=== PATIENT | male | born 1960 | race Caucasian/White ===

== ENCOUNTER 2023-04-11 14:03 | Inpatient (IN) | payer OTHER ==
--- NOTE | 2023-04-11 14:25 | ED ---
General Adult HPI - General Source: patient, RN notes reviewed Mode of arrival: ambulatory Limitations: no limitations <Jus Rajput - Last Filed: 04/11/23 14:24> - History of Present Illness -: days(s) Radiation: non-radiation Severity scale (1-10): 3 Consistency: constant Improves with: none Associated Symptoms: chest pain, loss of appetite, shortness of breath Treatments Prior to Arrival: none <Daron Cope - Last Filed: 04/15/23 18:38> - General Chief complaint: Shortness of Breath Stated complaint: chest pains sob Time Seen by Provider: 04/11/23 14:24 - History of Present Illness Initial comments: 62-year-old male presents emergency Department chief complaint of shortness breath, palpitations, chest discomfort. Patient states he has a history of A. fib he states he is supposed to be. On blood thinners but states he has not been taking them. He is also on metoprolol. Patient states he has lower chest, epigastric discomfort. (Jus Rajput) This is a 62-year-old male to the emergency department for evaluation. Patient Dese for evaluation regards to shortness of breath severe shortness of breath can catch his breath has not any of his medication exposed to be taking patient has occasional chest pain but deathly shortness breath with exertion (Daron Cope) - Related Data Home Medications Medication Instructions Recorded Confirmed Loperamide [Imodium] 2 mg PO BID PRN 04/11/23 04/11/23 Previous Rx's Medication Instructions Recorded Albuterol Inhaler [Ventolin Hfa 1 puff INHALATION QID PRN #8 gm 04/15/23 Inhaler] Apixaban [Eliquis] 5 mg PO BID #60 tab 04/15/23 Atorvastatin [Lipitor] 40 mg PO DAILY #30 tab 04/15/23 Bumetanide [BUMEX] 1 mg PO BID@0900,1600 #60 tab 04/15/23 Empagliflozin [Jardiance] 10 mg PO DAILY #30 tab 04/15/23 Metoprolol Tartrate [Lopressor] 50 mg PO BID #60 tab 04/15/23 Pantoprazole [Protonix] 40 mg PO AC-BRKFST #30 tab 04/15/23 Sacubitril/Valsartan [Entresto 24 1 each PO BID #60 tab 04/15/23 mg-26 mg Tablet] Spironolactone [Aldactone] 25 mg PO DAILY #30 tab 04/15/23 Allergies Allergy/AdvReac Type Severity Reaction Status Date / Time No Known Allergies Allergy Verified 04/11/23 17:50 Review of Systems ROS Other: All systems not noted in ROS Statement are negative. <Jus Rajput - Last Filed: 04/11/23 14:24> ROS Other: All systems not noted in ROS Statement are negative. <Daron Cope - Last Filed: 04/15/23 18:38> ROS Statement: Those systems with pertinent positive or pertinent negative responses have been documented in the HPI. Past Medical History Past Medical History: Atrial Fibrillation, Heart Failure Additional Past Medical History / Comment(s): high cholestrol History of Any Multi-Drug Resistant Organisms: None Reported Past Surgical History: Appendectomy, Hernia Repair Smoking Status: Never smoker Past Alcohol Use History: None Reported Past Drug Use History: Marijuana <Jus Rajput - Last Filed: 04/11/23 14:24> General Exam Limitations: no limitations <Jus Rajput - Last Filed: 04/11/23 14:24> General appearance: alert, in no apparent distress Head exam: Present: atraumatic, normocephalic, normal inspection Eye exam: Present: normal appearance, PERRL, EOMI. Absent: scleral icterus, conjunctival injection, periorbital swelling ENT exam: Present: normal exam, mucous membranes moist Neck exam: Present: normal inspection. Absent: tenderness, meningismus, lymphadenopathy Respiratory exam: Present: normal lung sounds bilaterally. Absent: respiratory distress, wheezes, rales, rhonchi, stridor Cardiovascular Exam: Present: tachycardia, irregular rhythm, normal heart sounds. Absent: systolic murmur, diastolic murmur, rubs, gallop, clicks GI/Abdominal exam: Present: soft, normal bowel sounds. Absent: distended, tenderness, guarding, rebound, rigid Extremities exam: Present: normal inspection, full ROM, normal capillary refill. Absent: tenderness, pedal edema, joint swelling, calf tenderness Back exam: Present: normal inspection Neurological exam: Present: alert, oriented X3, CN II-XII intact Psychiatric exam: Present: normal affect, normal mood Skin exam: Present: warm, dry, intact, normal color. Absent: rash <Daron Cope - Last Filed: 04/15/23 18:38> - General Exam Comments Initial Comments: Visual Physical Exam Vital signs reviewed General: Well-appearing, nontoxic, no acute distress. Head: Normocephalic, atraumatic Eyes: PERRLA, EOMI ENT: Airway patent Chest: Nonlabored breathing Skin: No visual rash, normal skin tone Neuro: Alert and oriented 3 Musculoskeletal: No gross abnormalities (Jus Rajput) Course <Daron Cope - Last Filed: 04/15/23 18:38> Vital Signs 04/11/23 04/11/23 04/11/23 14:07 16:39 18:27 Temperature 97.6 F 98.2 F Pulse Rate 65 62 63 Respiratory 22 28 H 27 H Rate Blood Pressure 138/114 141/83 142/82 O2 Sat by Pulse 96 95 94 L Oximetry 04/11/23 04/11/23 04/11/23 19:01 20:00 21:32 Temperature 98.1 F Pulse Rate 118 H 81 81 Respiratory 25 H 18 18 Rate Blood Pressure 120/92 129/88 118/93 O2 Sat by Pulse 97 93 L 96 Oximetry 04/12/23 04/12/23 04/12/23 00:00 04:00 07:00 Temperature Pulse Rate 77 57 L 83 Respiratory 15 17 18 Rate Blood Pressure 125/87 133/88 127/81 O2 Sat by Pulse 94 L 94 L 96 Oximetry 04/12/23 04/12/23 04/12/23 08:00 09:00 10:00 Temperature 97.7 F Pulse Rate 80 87 78 Respiratory 19 18 18 Rate Blood Pressure 146/106 133/100 131/99 O2 Sat by Pulse 96 93 L 94 L Oximetry 04/12/23 04/12/23 04/12/23 10:53 12:49 14:00 Temperature 98.0 F Pulse Rate 93 77 Respiratory 20 20 Rate Blood Pressure 113/87 116/99 O2 Sat by Pulse 93 L 97 97 Oximetry - Reevaluation(s) Reevaluation #1: 04/11/23 19:43 Medical record is reviewed (Daron Cope) Reevaluation #2: 04/11/23 19:44 Patient still with shortness of breath (Daron Cope) Reevaluation #3: 04/11/23 19:44 Patient for results questions answered (Daron Cope) Reevaluation #4: 04/11/23 19:44 Was pt. sent in by a medical professional or institution ([facility] Pressley, [facility], urgent care, hospital, or [facility]...) When possible be specific @ -no Did you speak to anyone other than the patient for history (EMS, parent, family, police, friend...)? What history was obtained from this source @ -no Did you review nursing and triage notes (agree or disagree)? Why? @ -agree Are old charts reviewed (outside hosp., previous admission, EMS record, old EKG, old radiological studies, urgent care reports/EKG's, [facility] records)? Report findings @ -yes Differential Diagnosis (chest pain, altered mental status, abdominal pain women, abdominal pain men, vaginal bleeding, weakness, fever, dyspnea, syncope, headache, dizziness, GI bleed, back pain, seizure, CVA, palpatations, mental health, musculoskeletal)? @ -prior EKG interpreted by me (3pts min.). @ -yes X-rays interpreted by me (1pt min.). @ -yes CT interpreted by me (1pt min.). @ -no U/S interpreted by me (1pt. min.). @ -no What testing was considered but not performed or refused? (CT, X-rays, U/S, labs)? Why? @ -none What meds were considered but not given or refused? Why? @ -none Did you discuss the management of the patient with other professionals (professionals i.e. ISHA[facility] Pressley, [facility], lab, RT, psych nurse, elementary school social worker, fence manufacture supervisor, teacher, transit police officer, manager case)? Give summary @ -no Was smoking cessation discussed for >3mins.? @ -no Was critical care preformed (if so, how long)? @ -no Were there social determinants of health that impacted care today? How? (Homelessness, low income, unemployed, alcoholism, drug addiction, transportation, low edu. Level, literacy, decrease access to med. care, fci, rehab)? @ -none Was there de-escalation of care discussed even if they declined (Discuss DNR or withdrawal of care, Hospice)? DNR status @ -no What co-morbidities impacted this encounter? (DM, HTN, Smoking, COPD, CAD, Cancer, CVA, ARF, Chemo, Hep., AIDS, mental health diagnosis, sleep apnea, morbid obesity)? @ -none Was patient admitted / discharged? Hospital course, mention meds given and route, prescriptions, significant lab abnormalities, going to OR and other pertinent info. @ - 62 male to the emergency department with severe shortness of breath multifactorial respiratory failure and A. fib with RVR. Patient be admitted for establishing of local primary care cardiology as well as pulmonology Admitted Undiagnosed new problem with uncertain prognosis? @ -no Drug Therapy requiring intensive monitoring for toxicity (Heparin, Nitro, Insulin, Cardizem)? @ -no Were any procedures done? @ -no Diagnosis/symptom? @ -CHF, COPD, atrial fibrillation with RVR Acute, or Chronic, or Acute on Chronic? @ -Acute Uncomplicated (without systemic symptoms) or Complicated (systemic symptoms)? @ -Complicated Side effects of treatment? @ -no Exacerbation, Progression, or Severe Exacerbation? @ -exacerbation Poses a threat to life or bodily function? How? (Chest pain, USA, IA, pneumonia, PE, COPD, DKA, ARF, appy, cholecystitis, CVA, Diverticulitis, Homicidal, Suicidal, threat to staff... and all critical care pts) @ -yes significant CHF and respiratory failure with arrhythmia (Daron Cope) Reevaluation #5: 04/11/23 19:44 Differential Dyspnea: Coronary syndrome, arrhythmia, tamponade, asthma, COPD, pulmonary embolism, pneumonia, pneumothorax, pulmonary effusion, anaphylaxis, diabetic ketoacidosis, flailed chest, pulmonary contusion, diaphragmatic rupture, anemia, neuromuscular, this is not meant to be an all-inclusive list. (Daron Cope) - Consultations Consultation #1: Spoke with SALLY to admit this patient (Daron Cope) EKG Findings - EKG Comments: EKG Findings:: EKG is A. fib with RVR 136 QRS 150 QTC 419 - EKG Results: EKG: interpreted by ERMD <Daron Cope - Last Filed: 04/15/23 18:38> Medical Decision Making <Jus Rajput - Last Filed: 04/11/23 14:24> - Lab Data Result diagrams: 04/12/23 09:09 04/14/23 07:04 - EKG Data -: EKG Interpreted by Me - Radiology Data Radiology results: report reviewed (Chest x-rays positive for CHF), image reviewed <Daron Cope - Last Filed: 04/15/23 18:38> - Medical Decision Making I completed the quick note portion of this chart signed Jus Rajput PA-C (Jus Rajput) 62 male will be admitted for severe CHF with A. fib with RVR. Patient will be admitted for breathing and supportive care. Diuresis and patient need to establish primary care physician in this area (Daron Cope) - Lab Data Lab Results 04/11/23 04/11/23 04/11/23 Range/Units 14:27 14:27 14:27 WBC 7.8 (3.8-10.6) k/uL RBC 4.54 (4.30-5.90) m/uL Hgb 13.2 (13.0-17.5) gm/dL Hct 39.1 (39.0-53.0) % MCV 86.3 (80.0-100.0) fL MCH 29.0 (25.0-35.0) pg MCHC 33.7 (31.0-37.0) g/dL RDW 17.7 H (11.5-15.5) % Plt Count 271 (150-450) k/uL MPV 8.9 Neutrophils % 70 % Lymphocytes % 20 % Monocytes % 8 % Eosinophils % 1 % Basophils % 0 % Neutrophils # 5.4 (1.3-7.7) k/uL Lymphocytes # 1.6 (1.0-4.8) k/uL Monocytes # 0.6 (0-1.0) k/uL Eosinophils # 0.1 (0-0.7) k/uL Basophils # 0.0 (0-0.2) k/uL Anisocytosis Slight PT 13.3 H (10.0-12.5) sec INR 1.3 H (<1.2) APTT 23.3 (22.0-30.0) sec Sodium 140 (137-145) mmol/L Potassium 3.7 (3.5-5.1) mmol/L Chloride 107 (98-107) mmol/L Carbon Dioxide 18 L (22-30) mmol/L Anion Gap 15 mmol/L BUN 24 H (9-20) mg/dL Creatinine 0.91 (0.66-1.25) mg/dL Est GFR (CKD-EPI)AfAm >90 (>60 ml/min/1.73 sqM) Est GFR (CKD-EPI)NonAf 89 (>60 ml/min/1.73 sqM) Glucose 123 H (74-99) mg/dL Plasma Lactic Acid Robinson (0.7-2.0) mmol/L Calcium 9.2 (8.4-10.2) mg/dL Total Bilirubin 1.7 H (0.2-1.3) mg/dL AST 31 (17-59) U/L ALT 20 (4-49) U/L Alkaline Phosphatase 82 (38-126) U/L Troponin I (0.000-0.034) ng/mL NT-Pro-B Natriuret Pep 9650 pg/mL Total Protein 7.3 (6.3-8.2) g/dL Albumin 4.2 (3.5-5.0) g/dL 04/11/23 04/11/23 Range/Units 14:27 14:27 WBC (3.8-10.6) k/uL RBC (4.30-5.90) m/uL Hgb (13.0-17.5) gm/dL Hct (39.0-53.0) % MCV (80.0-100.0) fL MCH (25.0-35.0) pg MCHC (31.0-37.0) g/dL RDW (11.5-15.5) % Plt Count (150-450) k/uL MPV Neutrophils % % Lymphocytes % % Monocytes % % Eosinophils % % Basophils % % Neutrophils # (1.3-7.7) k/uL Lymphocytes # (1.0-4.8) k/uL Monocytes # (0-1.0) k/uL Eosinophils # (0-0.7) k/uL Basophils # (0-0.2) k/uL Anisocytosis PT (10.0-12.5) sec INR (<1.2) APTT (22.0-30.0) sec Sodium (137-145) mmol/L Potassium (3.5-5.1) mmol/L Chloride (98-107) mmol/L Carbon Dioxide (22-30) mmol/L Anion Gap mmol/L BUN (9-20) mg/dL Creatinine (0.66-1.25) mg/dL Est GFR (CKD-EPI)AfAm (>60 ml/min/1.73 sqM) Est GFR (CKD-EPI)NonAf (>60 ml/min/1.73 sqM) Glucose (74-99) mg/dL Plasma Lactic Acid Robinson 1.7 (0.7-2.0) mmol/L Calcium (8.4-10.2) mg/dL Total Bilirubin (0.2-1.3) mg/dL AST (17-59) U/L ALT (4-49) U/L Alkaline Phosphatase (38-126) U/L Troponin I 0.019 (0.000-0.034) ng/mL NT-Pro-B Natriuret Pep pg/mL Total Protein (6.3-8.2) g/dL Albumin (3.5-5.0) g/dL Disposition <Jus Rajput - Last Filed: 04/11/23 14:24> Is patient prescribed a controlled substance at d/c from ED?: No Time of Disposition: 18:40 <Daron Cope - Last Filed: 04/15/23 18:38> Clinical Impression: Congestive heart failure, Acute pulmonary edema, Atrial fibrillation with rapid ventricular response Disposition: ADMITTED IP TO THIS HOSP Condition: Fair
[2023-04-11 14:50] LABS: Anisocytosis Slight; Basophils % (A) 0 %; Eosinophils # (A) 0.1 k/uL (0-0.7); Eosinophils % (A) 1 %; HCT 39.1 % (39.0-53.0); HGB 13.2 gm/dL (13.0-17.5); Lymphocytes # (A) 1.6 k/uL (1.0-4.8); Lymphocytes % (A) 20 %; MCHC 33.7 g/dL (31.0-37.0); MCV 86.3 fL (80.0-100.0); Mean Platelet Volume 8.9; Monocytes # (A) 0.6 k/uL (0-1.0); Monocytes % (A) 8 %; Neutrophils # (A) 5.4 k/uL (1.3-7.7); Neutrophils % (A) 70 %; Platelet Count 271 k/uL (150-450); RBC 4.54 m/uL (4.30-5.90); RDW 17.7 % (11.5-15.5); WBC 7.8 k/uL (3.8-10.6)
[2023-04-11 14:56] LABS: ALT 20 U/L (4-49); AST 31 U/L (17-59); African American GFR (CKD) >90 (>60 ml/min/1.73 sqM); Albumin 4.2 g/dL (3.5-5.0); Alkaline Phosphatase 82 U/L (38-126); Anion Gap 15 mmol/L; Blood Urea Nitrogen 24 mg/dL (9-20); Calcium 9.2 mg/dL (8.4-10.2); Carbon Dioxide 18 mmol/L (22-30); Chloride 107 mmol/L (98-107); Glucose 123 mg/dL (74-99); Non-African American GFR(CKD) 89 (>60 ml/min/1.73 sqM); Potassium 3.7 mmol/L (3.5-5.1); Sodium 140 mmol/L (137-145); Total Bilirubin 1.7 mg/dL (0.2-1.3); Total Protein 7.3 g/dL (6.3-8.2)
--- NOTE | 2023-04-11 14:56 | XR ---
EXAMINATION TYPE: XR chest 2V DATE OF EXAM: 04/11/2023 COMPARISON: NONE TECHNIQUE: PA and lateral views submitted. HISTORY: Difficulty breathing FINDINGS: Bilateral consolidation and small effusion. Diffuse interstitial pattern. Biapical pleural thickening with no pneumothorax. The heart is normal. Hypertrophic and degenerative changes in the spine. Diffu se idiopathic skeletal hyperostosis in the differential diagnosis. Arthropathy of the shoulders. IMPRESSION: 1. Bilateral infiltrate and pleural effusion correlate for CHF otherwise consider pneumonia.
[2023-04-11 15:04] LABS: NT-Pro-B-Type Natriuretic Pept 9650 pg/mL
[2023-04-11 15:11] LABS: INR 1.3 (<1.2); Partial Thromboplastin Time 23.3 sec (22.0-30.0); Prothrombin Time 13.3 sec (10.0-12.5)
[2023-04-11] MEDS ORDERED: MORPHINE SULFATE 4 MG/ML SYRINGE IV PRN (18:36)
[2023-04-11] MEDS ORDERED: NALOXONE 0.4 MG/ML 1 ML VIAL IV PRN (18:36)
[2023-04-11] MEDS ORDERED: ONDANSETRON 4 MG/2 ML VIAL IVP PRN (18:36)
[2023-04-11] MEDS ORDERED: FUROSEMIDE 10 MG/ML 4 ML VIAL IV STA (18:36)
[2023-04-11] MEDS ORDERED: DILTIAZEM DRIP BOLUS FROM BAG 1 MG SOLN IV ONE (18:40)
[2023-04-11] MEDS ORDERED: METOPROLOL TARTRATE 5 MG/5 ML VIAL IVP STA (18:40)
[2023-04-11] MEDS ORDERED: DILTIAZEM 125 MG in SODIUM CHLORIDE 0.9% 100 ML IV SCH (18:45)
[2023-04-12] MEDS ORDERED: METOPROLOL TARTRATE 25 MG TAB PO SCH (09:30)
[2023-04-12] MEDS: FUROSEMIDE 10 MG/ML 4 ML VIAL IV SCH ×2 (09:40→20:05)
[2023-04-12] MEDS: APIXABAN 5 MG TAB PO SCH ×2 (09:41→20:05)
[2023-04-12] MEDS: ATORVASTATIN 40 MG TAB PO SCH (09:41)
[2023-04-12] MEDS: LOSARTAN 25 MG TAB PO SCH (09:48)
[2023-04-12 09:50] LABS: Anisocytosis Slight; Basophils % (A) 0 %; Eosinophils # (A) 0.1 k/uL (0-0.7); Eosinophils % (A) 2 %; HCT 38.4 % (39.0-53.0); HGB 12.2 gm/dL (13.0-17.5); Hypochromasia Slight; Lymphocytes # (A) 1.1 k/uL (1.0-4.8); Lymphocytes % (A) 18 %; MCH 28.2 pg (25.0-35.0); MCHC 31.9 g/dL (31.0-37.0); MCV 88.4 fL (80.0-100.0); Mean Platelet Volume 8.3; Monocytes # (A) 0.4 k/uL (0-1.0); Monocytes % (A) 7 %; Neutrophils # (A) 4.4 k/uL (1.3-7.7); Neutrophils % (A) 73 %; Platelet Count 227 k/uL (150-450); RBC 4.35 m/uL (4.30-5.90); RDW 17.5 % (11.5-15.5); WBC 6.1 k/uL (3.8-10.6)
[2023-04-12 10:04] LABS: ALT 17 U/L (4-49); AST 22 U/L (17-59); African American GFR (CKD) >90 (>60 ml/min/1.73 sqM); Albumin 3.9 g/dL (3.5-5.0); Alkaline Phosphatase 77 U/L (38-126); Anion Gap 11 mmol/L; Blood Urea Nitrogen 17 mg/dL (9-20); Calcium 8.7 mg/dL (8.4-10.2); Carbon Dioxide 26 mmol/L (22-30); Chloride 102 mmol/L (98-107); Glucose 106 mg/dL (74-99); Non-African American GFR(CKD) >90 (>60 ml/min/1.73 sqM); Phosphorus 3.9 mg/dL (2.5-4.5); Potassium 3.3 mmol/L (3.5-5.1); Sodium 139 mmol/L (137-145); Total Bilirubin 1.6 mg/dL (0.2-1.3); Total Protein 6.9 g/dL (6.3-8.2)
[2023-04-12 10:24] LABS: Digoxin <0.4 ng/mL
[2023-04-12] MEDS ORDERED: POTASSIUM CHLORIDE ER 20 MEQ TAB.ER PO STA ×2 (12:46→22:43)
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
--- NOTE | 2023-04-12 19:10 | P.CRDCN ---
History of Present Illness Consult date: 04/12/23 History of present illness: HISTORY OF PRESENTING ILLNESS 62-year-old history of atrial fibrillation on anticoagulation, mild nonobstructive CAD, nonischemic cardiomyopathy with EF of 15-20% in December 2022 at [facility]. Patient reports that he has been out of his medication for last 1-2 weeks and he has not been able to get them filled. He presented to the hospital because of worsening shortness of breath with exertion and orthopnea. He is also complaining generalized weakness and fatigue. On admission his ECG showed atrial fibrillation with left bundle-branch block. He was in rapid ventricular response at the time of admission but at the time of my evaluation he was rate controlled. Lab shows hemoglobin 12.8, BUN 17, creatinine 0.9, BNP 9000, troponin was not elevated. REVIEW OF SYSTEMS 14 point review of system is negative except what is mentioned above in HPI. PHYSICAL EXAMINATION Vital signs reviewed. Head: Normocephalic. Eyes: Sclerae nonicteric. Neck: Brisk carotid upstroke, jugular venous distention. Lungs: Clear to auscultation. Heart: Irregularly irregular, probably murmur audible. Abdomen: Soft nontender, positive bowel sounds no organomegaly. Extremities: 2+ pitting edema in bilateral lower extremity Neuro: Alert, oritented, no focal deficits ASSESSMENT Acute hypoxic respiratory failure Acute systolic heart failure exacerbation Atrial fibrillation with RVR on admission. Currently rate controlled Nonischemic cardiomyopathy with EF 15-20% from Dec 2022 [facility] Medical non compliance Hypertension Dyslipidemia PLAN Resume Eliquis 5 mg twice a day, aspirin 81 mg, atorvastatin 40 mg, Lasix 40 mg IV twice a day, losartan 25 mg, metoprolol 50 minutes twice a day. Start spironolactone 25 mg and Farxiga 5 mg daily Past Medical History Past Medical History: Atrial Fibrillation, Heart Failure, Hyperlipidemia Additional Past Medical History / Comment(s): high cholestrol History of Any Multi-Drug Resistant Organisms: None Reported Past Surgical History: Appendectomy, Hernia Repair Past Anesthesia/Blood Transfusion Reactions: No Reported Reaction Past Psychological History: Depression Additional Psychological History / Comment(s): Patient is homeless. Smoking Status: Never smoker Past Alcohol Use History: None Reported Past Drug Use History: Marijuana Medications and Allergies Home Medications Medication Instructions Recorded Confirmed Type Aspirin [Children's Aspirin] 81 mg PO DAILY 04/11/23 04/11/23 History Atorvastatin [Lipitor] 40 mg PO DAILY 04/11/23 04/11/23 History Digoxin [Lanoxin] 125 mcg PO DAILY 04/11/23 04/11/23 History Empagliflozin [Jardiance] 10 mg PO DAILY 04/11/23 04/11/23 History Furosemide [Lasix] 60 mg PO BID 04/11/23 04/11/23 History Loperamide [Imodium] 2 mg PO BID PRN 04/11/23 04/11/23 History Metoprolol Succinate (ER) [Toprol 100 mg PO BID 04/11/23 04/11/23 History Xl] Rivaroxaban [Xarelto] 20 mg PO DAILY 04/11/23 04/11/23 History Spironolactone [Aldactone] 25 mg PO DAILY 04/11/23 04/11/23 History Allergies Allergy/AdvReac Type Severity Reaction Status Date / Time No Known Allergies Allergy Verified 04/11/23 17:50 Physical Exam Vitals: Vital Signs Temp Pulse Pulse Resp BP BP Pulse Ox 04/12/23 15:59 97.3 F L 62 17 129/77 95 04/12/23 15:22 97.8 F 72 17 118/88 97 04/12/23 14:00 97 04/12/23 12:49 98.0 F 77 20 116/99 97 04/12/23 10:53 93 20 113/87 93 L 04/12/23 10:00 78 18 131/99 94 L 04/12/23 09:00 87 18 133/100 93 L 04/12/23 08:00 97.7 F 80 19 146/106 96 04/12/23 07:00 83 18 127/81 96 04/12/23 04:00 57 L 17 133/88 94 L 04/12/23 00:00 77 15 125/87 94 L 04/11/23 21:32 98.1 F 81 18 118/93 96 04/11/23 20:00 81 18 129/88 93 L Intake and Output 04/12/23 04/12/23 04/12/23 06:59 14:59 22:59 Intake Total 110 Output Total 1700 Balance -1700 110 Intake: Oral 110 Output: Urine 1700 Other: Weight 113.398 kg Results 04/12/23 09:09 04/12/23 09:09 Cardiac Enzymes 04/11/23 04/12/23 04/12/23 Range/Units 19:51 00:13 09:09 AST 22 (17-59) U/L Troponin I 0.025 0.015 (0.000-0.034) ng/mL CBC 04/12/23 Range/Units 09:09 WBC 6.1 (3.8-10.6) k/uL RBC 4.35 (4.30-5.90) m/uL Hgb 12.2 L (13.0-17.5) gm/dL Hct 38.4 L (39.0-53.0) % Plt Count 227 (150-450) k/uL Comprehensive Metabolic Panel 04/12/23 Range/Units 09:09 Sodium 139 (137-145) mmol/L Potassium 3.3 L (3.5-5.1) mmol/L Chloride 102 (98-107) mmol/L Carbon Dioxide 26 (22-30) mmol/L BUN 17 (9-20) mg/dL Creatinine 0.87 (0.66-1.25) mg/dL Glucose 106 H (74-99) mg/dL Calcium 8.7 (8.4-10.2) mg/dL AST 22 (17-59) U/L ALT 17 (4-49) U/L Alkaline Phosphatase 77 (38-126) U/L Total Protein 6.9 (6.3-8.2) g/dL Albumin 3.9 (3.5-5.0) g/dL Current Medications Generic Name Dose Route Start Last Admin Trade Name Jbq PRN Reason Stop Dose Admin Apixaban 5 mg 04/12/23 09:30 04/12/23 09:41 Apixaban 5 Mg Tab PO 5 mg BID CATE Administration Protocol Aspirin 81 mg 04/13/23 09:00 Aspirin 81 Mg PO DAILY [facility] Atorvastatin Calcium 40 mg 04/12/23 09:30 04/12/23 09:41 Atorvastatin 40 Mg Tab PO 40 mg DAILY CATE Administration Dapagliflozin 5 mg 04/13/23 09:00 Dapagliflozin Propanediol 5 Mg Tablet PO DAILY [facility] Furosemide 40 mg 04/12/23 09:30 04/12/23 09:40 Furosemide 10 Mg/Ml 4 Ml Vial IV 40 mg Q12HR CATE Administration Losartan Potassium 25 mg 04/12/23 09:30 04/12/23 09:48 Losartan 25 Mg Tab PO 25 mg DAILY CATE Administration Metoprolol Tartrate 50 mg 04/12/23 21:00 Metoprolol Tartrate 25 Mg Tab PO BID CATE Naloxone HCl 0.2 mg 04/11/23 18:36 Naloxone 0.4 Mg/Ml 1 Ml Vial IV Q2M PRN Opioid Reversal Ondansetron HCl 4 mg 04/11/23 18:36 04/12/23 08:37 Ondansetron 4 Mg/2 Ml Vial IVP 4 mg Q8HR PRN Administration Nausea And Vomiting Spironolactone 25 mg 04/13/23 09:00 Spironolactone 25 Mg Tab PO DAILY CATE Intake and Output 04/12/23 04/12/23 04/12/23 06:59 14:59 22:59 Intake Total 110 Output Total 1700 Balance -1700 110 Intake: Oral 110 Output: Urine 1700 Other: Weight 113.398 kg Patient Weight 04/13/23 06:59 Weight 113.398 kg 04/12/23 09:09 04/12/23 09:09
[2023-04-12] MEDS: METOPROLOL TARTRATE 25 MG TAB PO SCH (20:05)
[2023-04-12 22:37] LABS: African American GFR (CKD) 74 (>60 ml/min/1.73 sqM); Anion Gap 10 mmol/L; Blood Urea Nitrogen 21 mg/dL (9-20); Calcium 8.2 mg/dL (8.4-10.2); Carbon Dioxide 30 mmol/L (22-30); Chloride 99 mmol/L (98-107); Glucose 82 mg/dL (74-99); Non-African American GFR(CKD) 64 (>60 ml/min/1.73 sqM); Potassium 3.2 mmol/L (3.5-5.1); Sodium 139 mmol/L (137-145)
[2023-04-12] MEDS ORDERED: Potassium Replacement Protocol 1 EACH MISC MISCELLANE PRN (22:42)
[2023-04-13] MEDS: ATORVASTATIN 40 MG TAB PO SCH (08:44)
[2023-04-13] MEDS: METOPROLOL TARTRATE 25 MG TAB PO SCH ×2 (08:44→20:11)
[2023-04-13] MEDS: SPIRONOLACTONE 25 MG TAB PO SCH (08:44)
[2023-04-13] MEDS: DAPAGLIFLOZIN PROPANEDIOL 5 MG TABLET PO SCH (08:44)
[2023-04-13] MEDS: APIXABAN 5 MG TAB PO SCH ×2 (08:44→20:11)
[2023-04-13] MEDS: LOSARTAN 25 MG TAB PO SCH (08:44)
[2023-04-13] MEDS: FUROSEMIDE 10 MG/ML 4 ML VIAL IV SCH ×2 (08:58→20:10)
[2023-04-13] MEDS ORDERED: ASPIRIN 81 MG PO SCH (09:00)
[2023-04-13] MEDS ORDERED: ATORVASTATIN 40 MG TAB PO SCH (09:00)
[2023-04-13] MEDS ORDERED: DIGOXIN 125 MCG TAB PO SCH (09:00)
[2023-04-13 10:03] LABS: African American GFR (CKD) 90 (>60 ml/min/1.73 sqM); Anion Gap 12 mmol/L; Blood Urea Nitrogen 20 mg/dL (9-20); Calcium 8.8 mg/dL (8.4-10.2); Carbon Dioxide 29 mmol/L (22-30); Chloride 101 mmol/L (98-107); Glucose 113 mg/dL (74-99); Non-African American GFR(CKD) 78 (>60 ml/min/1.73 sqM); Potassium 3.7 mmol/L (3.5-5.1); Sodium 142 mmol/L (137-145)
--- NOTE | 2023-04-13 10:10 | CA ---
Transthoracic Echo Report Name: Teddy Ku Age: 62 Gender: M : 1960 Exam Date: 04/12/2023 11:16 Exam Location: [facility] Ht (in): 75 Wt (lb): 250 Ordering Physician: Magdy Ramirez MD ([id number]) Attending/Referring Phys: Brush Or Broom Cutter Suyapa Leal [facility] Procedure CPT: Indications: CHF systolic Cardiac Hx: Technical Quality: Technically difficult study Contrast 1: Definity Total Dose (mL): 5 Contrast 2: Total Dose (mL): MEASUREMENTS (Male / Female) Normal Values 2D ECHO LV Diastolic Diameter PLAX 5.6 cm 4.2 - 5.9 / 3.9 - 5.3 cm LV Systolic Diameter PLAX 4.6 cm IVS Diastolic Thickness 1.1 cm 0.6 - 1.0 / 0.6 - 0.9 cm LVPW Diastolic Thickness 1.3 cm 0.6 - 1.0 / 0.6 - 0.9 cm LV Relative Wall Thickness 0.4 LV Diastolic Volume MOD BP 137.0 cm??? 67 - 155 / 56 - 104 cm??? LV Systolic Volume MOD BP 96.6 cm??? 22 - 58 / 19 - 49 cm??? LV Ejection Fraction MOD BP 29.5 % >= 55 % LV Cardiac Index MOD BP 1059.2 cm???/min???m??? LV Diastolic Volume MOD 4C 119.3 cm??? LV Systolic Volume MOD 4C 70.7 cm??? LV Ejection Fraction MOD 4C 40.7 % LV Cardiac Index MOD 4C 1274.6 cm???/min???m??? LV Diastolic Length 4C 9.7 cm LV Systolic Length 4C 8.0 cm LV Diastolic Volume MOD 2C 152.6 cm??? LV Systolic Volume MOD 2C 117.8 cm??? LV Ejection Fraction MOD 2C 22.8 % LV Cardiac Index MOD 2C 913.6 cm???/min???m??? LV Diastolic Length 2C 9.4 cm LV Systolic Length 2C 9.0 cm Ascending Aorta Diameter 3.8 cm M-MODE Aortic Root Diameter MM 3.5 cm LA Systolic Diameter MM 5.6 cm LA Ao Ratio MM 1.6 AV Cusp Separation MM 2.5 cm DOPPLER AV Peak Velocity 110.0 cm/s AV Peak Gradient 4.8 mmHg AV Mean Velocity 73.8 cm/s AV Mean Gradient 2.5 mmHg AV Velocity Time Integral 16.7 cm LVOT Peak Velocity 86.6 cm/s LVOT Peak Gradient 3.0 mmHg LVOT Velocity Time Integral 16.7 cm Mitral E Point Velocity 63.3 cm/s MV Deceleration Time 147.9 ms LV E' Lateral Velocity 6.3 cm/s Mitral E to LV E' Lateral Ratio 10.0 TR Peak Velocity 240.5 cm/s TR Peak Gradient 23.1 mmHg Right Atrial Pressure 15.0 mmHg Pulmonary Artery Systolic Pressu 38.1 mmHg Right Ventricular Systolic Press 38.1 mmHg FINDINGS Left Ventricle Mildly increased left ventricular wall thickness. Left ventricular cavity size at the upper limits of normal. Severely increased left ventricular systolic volume. Severely decreased left ventricular ejection fraction. Left ventricular ejection fraction is estimated at 25-30%. Right Ventricle Severe right ventricular dilatation. Mild pulmonary hypertension. Right Atrium Severe right atrial dilatation. Left Atrium Severe left atrial dilatation. Mitral Valve Mitral valve thickened. Trace mitral regurgitation. Aortic Valve Trileaflet aortic valve. Aortic valve sclerosis. Mild aortic regurgitation. Tricuspid Valve Structurally normal tricuspid valve. Mild tricuspid regurgitation. Pulmonic Valve Pulmonic valve not well visualized. Pericardium Minimal pericardial effusion (normal variant). Aorta Aorta at upper limits of normal. CONCLUSIONS Severe LV systolic dysfunction with an ejection fraction of 25-30% Dilated right ventricle with mild pulmonary hypertension Mild aortic and tricuspid regurgitation Previewed by: Dr. Monty Franco MD (Electronically Signed) Final Date: 13 April 2023 10:08
[2023-04-13] MEDS: POTASSIUM CHLORIDE ER 20 MEQ TAB.ER PO SCH ×2 (10:21→11:21)
--- NOTE | 2023-04-13 13:11 | P.PN ---
Subjective HISTORY OF PRESENT ILLNESS: 62-year-old history of atrial fibrillation on anticoagulation, mild nonobstructive CAD, nonischemic cardiomyopathy with EF of 15-20% in December 2022 at [facility]. Patient reports that he has been out of his medication for last 1-2 weeks and he has not been able to get them filled. He presented to the hospital because of worsening shortness of breath with exertion and orthopnea. He is also complaining generalized weakness and fatigue. On admission his ECG showed atrial fibrillation with left bundle-branch block. He was in rapid ventricular response at the time of admission but at the time of my evaluation he was rate controlled. Lab shows hemoglobin 12.8, BUN 17, creatinine 0.9, BNP 9000, troponin was not elevated. 04/13/2023 Patient examined this morning at the bedside. Patient currently denies chest pain or pressure. He does report shortness of breath. He remains on IV Lasix. Telemetry reveals atrial fibrillation with a heart rate in the 80s. Echocard iogram completed revealing severe LV systolic dysfunction with an EF of 25-30%, mild pulmonary hypertension, trace mitral regurgitation, mild aortic regurgitation and mild tricuspid regurgitation. PHYSICAL EXAM: VITAL SIGNS: Reviewed. GENERAL: Well-developed in no acute distress. NECK: Supple. No JVD or thyromegaly LUNGS: Respirations even and unlabored. Lungs with crackles at the bases HEART Irregular rate and rhythm. S1 and S2 heard. EXTREMITIES: Normal range of motion. No clubbing or cyanosis. Peripheral pulses intact. lower extremity edema noted ASSESSMENT: Acute hypoxic respiratory failure Acute systolic heart failure exacerbation Atrial fibrillation with RVR on admission. Currently rate controlled Nonischemic cardiomyopathy with EF 15-20% from Dec 2022 [facility], repeat echo 25-30% Medical noncompliance Hypertension Dyslipidemia History of failed cardioversion 2 PLAN: Continue current cardiac medications Continue IV Lasix for an additional 24 hours. Anticipate transition to oral dosing tomorrow Daily weights, accurate I&O, and monitoring of kidney function Consider Entresto on an outpatient basis Further recommendations pending patient's course Nurse practitioner note has been reviewed by physician. Signing provider agrees with the documented findings, assessment, and plan of care. Objective - Vital Signs Vital signs: Vital Signs Temp 97.3 F L 04/13/23 11:22 Pulse 85 04/13/23 11:22 Resp 17 04/13/23 11:22 BP 122/87 04/13/23 11:22 Pulse Ox 91 L 04/13/23 11:22 FiO2 Intake & Output 04/12/23 04/13/23 04/13/23 18:59 06:59 18:59 Intake Total 110 240 110 Output Total 1700 900 Balance -1590 -660 110 Weight 113.398 kg 111.6 kg Intake: Oral 110 240 110 Output: Urine 1700 900 Other: # Voids 1 - Labs CBC & Chem 7: 04/12/23 09:09 04/13/23 08:18 Labs: Abnormal Lab Results - Last 24 Hours (Table) 04/12/23 04/13/23 Range/Units 22:10 08:18 Potassium 3.2 L (3.5-5.1) mmol/L BUN 21 H (9-20) mg/dL Glucose 113 H (74-99) mg/dL Calcium 8.2 L (8.4-10.2) mg/dL
[2023-04-13] MEDS: ACETAMINOPHEN TAB 500 MG TAB PO PRN (20:09)
[2023-04-13] MEDS: MELATONIN 3 MG TABLET PO SCH (20:11)
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
[2023-04-14] MEDS: PANTOPRAZOLE 40 MG TABLET PO SCH (06:37)
--- NOTE | 2023-04-14 09:02 | P.PN ---
Subjective HISTORY OF PRESENT ILLNESS: 62-year-old history of atrial fibrillation on anticoagulation, mild nonobstructive CAD, nonischemic cardiomyopathy with EF of 15-20% in December 2022 at [facility]. Patient reports that he has been out of his medication for last 1-2 weeks and he has not been able to get them filled. He presented to the hospital because of worsening shortness of breath with exertion and orthopnea. He is also complaining generalized weakness and fatigue. On admission his ECG showed atrial fibrillation with left bundle-branch block. He was in rapid ventricular response at the time of admission but at the time of my evaluation he was rate controlled. Lab shows hemoglobin 12.8, BUN 17, creatinine 0.9, BNP 9000, troponin was not elevated. 04/13/2023 Patient examined this morning at the bedside. Patient currently denies chest pain or pressure. He does report shortness of breath. He remains on IV Lasix. Telemetry reveals atrial fibrillation with a heart rate in the 80s. Echocard iogram completed revealing severe LV systolic dysfunction with an EF of 25-30%, mild pulmonary hypertension, trace mitral regurgitation, mild aortic regurgitation and mild tricuspid regurgitation. 04/14/2023 Patient examined this morning at the bedside. Patient denies chest pain or pressure. He continues to report shortness of breath. He remains on IV Lasix 40 mg every 12 hours. Blood pressure stable with a recent reading of 122/65. PHYSICAL EXAM: VITAL SIGNS: Reviewed. GENERAL: Well-developed in no acute distress. NECK: Supple. No JVD or thyromegaly LUNGS: Respirations even and unlabored. Lungs with crackles at the bases and mild wheezing HEART Irregular rate and rhythm. S1 and S2 heard. EXTREMITIES: Normal range of motion. No clubbing or cyanosis. Peripheral pulses intact. lower extremity edema noted ASSESSMENT: Acute hypoxic respiratory failure Acute systolic heart failure exacerbation Atrial fibrillation with RVR on admission. Currently rate controlled Nonischemic cardiomyopathy with EF 15-20% from Dec 2022 [facility], repeat echo 25-30% Medical noncompliance Hypertension Dyslipidemia History of failed cardioversion 2 PLAN: Continue current cardiac medications Patient still complaining of shortness of breath today and requiring supplemental oxygen at times. We will continue IV Lasix for an additional 24 hours. Anticipate transition to oral dosing tomorrow Daily weights, accurate I&O, and monitoring of kidney function Discontinue losartan. Begin Entresto. Further recommendations pending patient's course Patient to follow up post discharge with Dr. Ramirez Nurse practitioner note has been reviewed by physician. Signing provider agrees with the documented findings, assessment, and plan of care. Objective - Vital Signs Vital signs: Vital Signs Temp 97.9 F 04/14/23 04:00 Pulse 74 04/14/23 04:00 Resp 20 04/14/23 04:00 BP 122/65 04/14/23 04:00 Pulse Ox 95 04/14/23 04:00 FiO2 Intake & Output 04/13/23 04/14/23 04/14/23 18:59 06:59 18:59 Intake Total 555 480 Output Total 750 Balance 555 -750 480 Weight 111.9 kg Intake: Oral 555 480 Output: Urine 750 Other: Voiding Method Toilet Urinal # Voids 2 - Labs CBC & Chem 7: 04/12/23 09:09 04/13/23 08:18 Labs: Abnormal Lab Results - Last 24 Hours (Table) 04/13/23 Range/Units 08:18 Glucose 113 H (74-99) mg/dL
[2023-04-14 09:23] LABS: African American GFR (CKD) >90 (>60 ml/min/1.73 sqM); Anion Gap 13 mmol/L; Blood Urea Nitrogen 21 mg/dL (9-20); Calcium 8.7 mg/dL (8.4-10.2); Carbon Dioxide 27 mmol/L (22-30); Chloride 102 mmol/L (98-107); Glucose 91 mg/dL (74-99); Non-African American GFR(CKD) >90 (>60 ml/min/1.73 sqM); Potassium 4.4 mmol/L (3.5-5.1); Sodium 142 mmol/L (137-145)
[2023-04-14] MEDS: SPIRONOLACTONE 25 MG TAB PO SCH (09:33)
[2023-04-14] MEDS: DAPAGLIFLOZIN PROPANEDIOL 5 MG TABLET PO SCH (09:33)
[2023-04-14] MEDS: APIXABAN 5 MG TAB PO SCH ×2 (09:33→19:52)
[2023-04-14] MEDS: METOPROLOL TARTRATE 25 MG TAB PO SCH ×2 (09:33→19:52)
[2023-04-14] MEDS: FUROSEMIDE 10 MG/ML 4 ML VIAL IV SCH ×2 (09:33→19:51)
[2023-04-14] MEDS: SACUBITRIL/VALSARTAN 24 MG-26 MG TABLET PO SCH ×2 (09:33→19:52)
[2023-04-14] MEDS: ATORVASTATIN 40 MG TAB PO SCH (09:33)
[2023-04-14] MEDS: ACETAMINOPHEN TAB 500 MG TAB PO PRN (09:43)
[2023-04-14] MEDS: MELATONIN 3 MG TABLET PO SCH (19:52)
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
[2023-04-15] MEDS: PANTOPRAZOLE 40 MG TABLET PO SCH (06:24)
[2023-04-15] MEDS: SPIRONOLACTONE 25 MG TAB PO SCH (09:01)
[2023-04-15] MEDS: SACUBITRIL/VALSARTAN 24 MG-26 MG TABLET PO SCH (09:01)
[2023-04-15] MEDS: ATORVASTATIN 40 MG TAB PO SCH (09:01)
[2023-04-15] MEDS: APIXABAN 5 MG TAB PO SCH (09:01)
[2023-04-15] MEDS: FUROSEMIDE 10 MG/ML 4 ML VIAL IV SCH (09:01)
[2023-04-15] MEDS: DAPAGLIFLOZIN PROPANEDIOL 5 MG TABLET PO SCH (09:01)
[2023-04-15] MEDS: METOPROLOL TARTRATE 25 MG TAB PO SCH (09:01)
[2023-04-15] MEDS: ACETAMINOPHEN TAB 500 MG TAB PO PRN (09:04)
[2023-04-15 10:49] VITALS: BP 154/92; PULSE 98; RESP 18; TEMP 98.1
--- NOTE | 2023-04-15 13:33 | P.PN ---
Subjective HISTORY OF PRESENT ILLNESS: 62-year-old history of atrial fibrillation on anticoagulation, mild nonobstructive CAD, nonischemic cardiomyopathy with EF of 15-20% in December 2022 at . Patient reports that he has been out of his medication for last 1-2 weeks and he has not been able to get them filled. He presented to the hospital because of worsening shortness of breath with exertion and orthopnea. He is also complaining generalized weakness and fatigue. On admission his ECG showed atrial fibrillation with left bundle-branch block. He was in rapid ventricular response at the time of admission but at the time of my evaluation he was rate controlled. Lab shows hemoglobin 12.8, BUN 17, creatinine 0.9, BNP 9000, troponin was not elevated. 04/13/2023 Patient examined this morning at the bedside. Patient currently denies chest pain or pressure. He does report shortness of breath. He remains on IV Lasix. Telemetry reveals atrial fibrillation with a heart rate in the 80s. Echocard iogram completed revealing severe LV systolic dysfunction with an EF of 25-30%, mild pulmonary hypertension, trace mitral regurgitation, mild aortic regurgitation and mild tricuspid regurgitation. 04/14/2023 Patient examined this morning at the bedside. Patient denies chest pain or pressure. He continues to report shortness of breath. He remains on IV Lasix 40 mg every 12 hours. Blood pressure stable with a recent reading of 122/65. 04/15/2023 Patient examined this morning at the bedside. Patient denies chest pain or pressure. He denies shortness of breath. He is on room air with oxygen saturations greater than 92%. He remains on IV Lasix. PHYSICAL EXAM: VITAL SIGNS: Reviewed. GENERAL: Well-developed in no acute distress. NECK: Supple. No JVD or thyromegaly LUNGS: Respirations even and unlabored. Lungs clear bilaterally. HEART Irregular rate and rhythm. S1 and S2 heard. EXTREMITIES: Normal range of motion. No clubbing or cyanosis. Peripheral pulse s intact. No lower extremity edema noted. ASSESSMENT: Acute hypoxic respiratory failure Acute systolic heart failure exacerbation Atrial fibrillation with RVR on admission. Currently rate controlled Nonischemic cardiomyopathy with EF 15-20% from Dec 2022 , r epeat echo 25-30% Medical noncompliance Hypertension Dyslipidemia History of failed cardioversion 2 PLAN: Continue current cardiac medications Discontinue IV Lasix. Begin Bumex 1 mg 3 times a day We'll consider AICD implantation in the future. This will be further discussed at his follow-up appointment outpatient. Patient is stable for discharge today from a cardiac standpoint Patient to follow up post discharge with Dr. Ramirez Nurse practitioner note has been reviewed by physician. Signing provider agrees with the documented findings, assessment, and plan of care. Objective - Vital Signs Vital signs: Vital Signs Temp 98.1 F 04/15/23 08:00 Pulse 98 04/15/23 08:00 Resp 18 04/15/23 08:00 BP 154/92 04/15/23 08:00 Pulse Ox 97 04/15/23 08:00 FiO2 Intake & Output 04/14/23 04/15/23 04/15/23 18:59 06:59 18:59 Intake Total 1210 720 360 Output Total 800 3100 Balance 410 -2380 360 Weight 109.3 kg Intake: IV 10 Invasive Line 1 10 Oral 1200 720 360 Output: Urine 800 3100 Other: Voiding Method Toilet Toilet Toilet Urinal Urinal Urinal # Voids 2 2 - Labs CBC & Chem 7: 04/12/23 09:09 04/14/23 07:04
[2023-04-15] MEDS ORDERED: BUMETANIDE 1 MG TAB PO SCH (16:00)
--- NOTE | 2023-04-16 12:47 | P.DS ---
Providers Date of admission: 04/11/23 18:37 Attending physician: Whitney Crump Consults: 04/11/23 18:36 Consult Physician Routine Consulting Provider: Nikkie Eduardo Consult Reason/Comments: [id number] Do you want consulting provider notified?: Yes Primary care physician: Stated None Hospital Course: Final Diagnosis -Acute hypoxic respiratory failure secondary to congestive heart failure exacerbation systolic dysfunction with EF 25-30%. -Acute systolic heart failure exacerbation patient has been started on entresto, lasix discontinued. -Hypokalemic from diuresis, replaced with oral supplementation and will repeat potassium level in AM -Hx of nonischemic cardiomyopathy with improved EF. -Atrial fibrillation with RVR on admission, currently rate controlled continues on eliquis for anticoagulation on metoprolol 50 mg BID. -Medical noncompliance -Coronary artery disease mild no history of stenting. -Hyperlipidemia -Hypertension Discharge Disposition Patient is stable for discharge home. He was cleared by cardiology to follow-up in the office. Patient is given information about primary care providers in the area. Recommend to establish care. He is a given a refill on all of his presc riptions was recommended. Bumex 1 mg twice a day however this was not covered by insurance and was changed to Lasix 40 mg twice a day. He will continue on eliquis 5 mg twice a day for anticoagulation [place] has been discontinued. Patient is on high-dose statin as well as Aldactone Jardiance and entresto. Hospital Course This is a 62-year-old male with known history of heart failure, atrial f ibrillation on anticoagulation, coronary artery disease ejection fraction is not known at this time came in with comments of shortness of breath palpitations orthopnea paroxysmal nocturnal dyspnea. Patient was admitted to the hospital for acute CHF exacerbation proBNP of 9650 with bilateral pleural effusions and pulmonary congestion, patient was started on IV Lasix. Patient was also in A. fib with rapid unclear rate initially was on Cardizem subsequently was switched to metoprolol. Patient usually takes 100 twice a day of metoprolol along with the digoxin although his heart rate is pretty well controlled at this time. Patient does have history of coronary disease as per the patient but never had any stents. Patient denied any significant cough with sputum production patient out of his medications about a week to 10 days ago moved recently from another area, prior all his care is in [facility]. Echocardiogram reveals an EF 25-30% with dilated right ventricle mild mild pulmonary hypertension, mild aortic and tricuspid regurgitation. He has diursed well. Cardiology clearing patient for discharge. He was switched from xarelto to eliquis. Patient denies chest pain denies shortness of breath he has been up ambulating without difficulty. He is transitioned to oral diuretics. His lungs are clear. Discharged home with the above-mentioned recommendations. Please see medication reconciliation for list of current medication. Thank you for allowing us to participate in the care of this patient. The impression and plan of care has been dictated by Ruthann Robertson, Nurse Practitioner as directed. Dr. George MD I have performed a history and physical examination and medical decision making of this patient, discussed the same with the dictator, and agree with the dictators assessment and plan as written, documented as a scribe. Based on total visit time, I have performed more than 50% of this visit. Patient Condition at Discharge: Fair Plan - Discharge Summary Discharge Rx Participant: Yes New Discharge Prescriptions: New Bumetanide [BUMEX] 1 mg PO BID@0900,1600 #60 tab Metoprolol Tartrate [Lopressor] 50 mg PO BID #60 tab Pantoprazole [Protonix] 40 mg PO -[facility] #30 tab Apixaban [Eliquis] 5 mg PO BID #60 tab Sacubitril/Valsartan [Entresto 24 mg-26 mg Tablet] 1 each PO BID #60 tab Albuterol Inhaler [Ventolin Hfa Inhaler] 1 puff INHALATION QID PRN #8 gm PRN Reason: Shortness Of Breath Or Wheezing Continue Atorvastatin [Lipitor] 40 mg PO DAILY #30 tab Loperamide [Imodium] 2 mg PO BID PRN PRN Reason: Diarrhea Spironolactone [Aldactone] 25 mg PO DAILY #30 tab Empagliflozin [Jardiance] 10 mg PO DAILY #30 tab Discontinued Metoprolol Succinate (ER) [Toprol Xl] 100 mg PO BID Digoxin [Lanoxin] 125 mcg PO DAILY Rivaroxaban [Xarelto] 20 mg PO DAILY Furosemide [Lasix] 60 mg PO BID Aspirin [Children's Aspirin] 81 mg PO DAILY Discharge Medication List Loperamide [Imodium] 2 mg PO BID PRN 04/11/23 [History] Albuterol Inhaler [Ventolin Hfa Inhaler] 1 puff INHALATION QID PRN #8 gm 04/15/23 [Rx] Apixaban [Eliquis] 5 mg PO BID #60 tab 04/15/23 [Rx] Atorvastatin [Lipitor] 40 mg PO DAILY #30 tab 04/15/23 [Rx] Bumetanide [BUMEX] 1 mg PO BID@0900,1600 #60 tab 04/15/23 [Rx] Empagliflozin [Jardiance] 10 mg PO DAILY #30 tab 04/15/23 [Rx] Metoprolol Tartrate [Lopressor] 50 mg PO BID #60 tab 04/15/23 [Rx] Pantoprazole [Protonix] 40 mg PO AC-BRKFST #30 tab 04/15/23 [Rx] Sacubitril/Valsartan [Entresto 24 mg-26 mg Tablet] 1 each PO BID #60 tab 04/15/23 [Rx] Spironolactone [Aldactone] 25 mg PO DAILY #30 tab 04/15/23 [Rx] Follow up Appointment(s)/Referral(s): Magdy Ramirez MD [Medical Doctor] - 1 Week (Job Order Clerk- Appt 04/22 @ 11:15am) Ирина Pinzon MD [REFERRING] - 1-2 Days None,Stated [Primary Care Provider] - [facility] - 1-2 Days Activity/Diet/Wound Care/Special Instructions: Need to remain complaint with medication and follow up with a PCP in this area Follow up with cardiology in 1 to 2 weeks on discharge Discharge Disposition: HOME SELF-CARE
== END 2023-04-15 12:57 | disposition home or self-care (01) | DRG 194 ==
LOC: EC 14:03 → 3SCARD 18:37
PROVIDERS: ADMIT Hospitalist; ATTEND Hospitalist
DX: I11.0 Hypertensive heart disease with heart failure (principal); I25.10 Atherosclerotic heart disease of native coronary artery without angina pectoris; I50.23 Acute on chronic systolic (congestive) heart failure; J96.01 Acute respiratory failure with hypoxia; Z79.82 Long term (current) use of aspirin; Z91.199 Patient's noncompliance with other medical treatment and regimen due to unspecified reason; I27.20 Pulmonary hypertension, unspecified; I48.91 Unspecified atrial fibrillation; E87.6 Hypokalemia; T50.2X5A Adverse effect of carbonic-anhydrase inhibitors, benzothiadiazides and other diuretics, initial encounter; E78.00 Pure hypercholesterolemia, unspecified; X58.XXXA Exposure to other specified factors, initial encounter; I08.2 Rheumatic disorders of both aortic and tricuspid valves; I42.8 Other cardiomyopathies; I44.7 Left bundle-branch block, unspecified; Z79.01 Long term (current) use of anticoagulants; Z79.84 Long term (current) use of oral hypoglycemic drugs; Z79.899 Other long term (current) drug therapy; Z91.148 Patient's other noncompliance with medication regimen for other reason; Z87.19 Personal history of other diseases of the digestive system
CPT/HCPCS: 36415; 71046; 80048; 80053; 80162; 83605; 83735; 83880; 84100; 84484; 85025; 85610; 85730; 93005; 93306; 96365; 96366; 96375; 96376; 99285

== ENCOUNTER 2023-06-11 15:53 | Inpatient (IN) | payer OTHER ==
[2023-06-11] MEDS ORDERED: MORPHINE SULFATE 4 MG/ML SYRINGE IV STA (16:56)
[2023-06-11] MEDS ORDERED: NITROGLYCERIN OINT 1 INCH/GM PACKET TOPICAL STA (16:56)
[2023-06-11 17:22] LABS: Anisocytosis Slight; Basophils % (A) 1 %; Eosinophils % (A) 0 %; HCT 36.7 % (39.0-53.0); HGB 12.1 gm/dL (13.0-17.5); Hypochromasia Moderate; Lymphocytes # (A) 0.9 k/uL (1.0-4.8); Lymphocytes % (A) 12 %; MCH 29.5 pg (25.0-35.0); MCHC 33.1 g/dL (31.0-37.0); MCV 89.1 fL (80.0-100.0); Mean Platelet Volume 8.7; Monocytes # (A) 0.5 k/uL (0-1.0); Monocytes % (A) 7 %; Neutrophils # (A) 5.7 k/uL (1.3-7.7); Neutrophils % (A) 79 %; Platelet Count 274 k/uL (150-450); RBC 4.12 m/uL (4.30-5.90); RDW 16.5 % (11.5-15.5); WBC 7.3 k/uL (3.8-10.6)
--- NOTE | 2023-06-11 17:26 | XR ---
EXAMINATION TYPE: XR chest 2V DATE OF EXAM: 06/11/2023 COMPARISON: 04/11/2020 INDICATION: Short of breath TECHNIQUE: Frontal and lateral views of the chest are obtained. FINDINGS: The heart size is normal. The pulmonary vasculature is normal. Bibasilar infiltrates are present. A small right pleural effusion is present.. IMPRESSION: 1. Small right pleural effusion with bibasilar infiltrates. Correlate for atelectasis or pneumonia.
--- NOTE | 2023-06-11 17:45 | ED ---
Chest Pain HPI - General Chief Complaint: Chest Pain Stated Complaint: Chest pains Time Seen by Provider: 06/11/23 16:05 Source: EMS Mode of arrival: EMS Limitations: no limitations - History of Present Illness Initial Comments: Patient is 62-year-old man who presents with complaint of dyspnea and chest pain. States that the shortness of breath had come on first, it is mainly orthopnea but now he is starting to have some chest pain upright. He states he is not able to get around the house at all without becoming severely dyspneic. Patient feels like there is tightness in his chest. The breathing sent today EMS was activated and he was brought here to have evaluation. Patient states he is feeling a little better after receiving medication from EMS, including nitroglycerin and oxygen. MD Complaint: chest pain Onset/Timin -: days(s) Onset: during rest Pain Location: substernal Pain Radiation: none Severity: moderate Quality: tightness Consistency: constant Improves With: nitroglycerin Worsens With: exertion, supine Anginal Symptoms: dyspnea Treatments Prior to Arrival: aspirin, nitroglycerin, oxygen - Related Data Home Medications Medication Instructions Recorded Confirmed Loperamide [Imodium] 2 mg PO BID PRN 04/11/23 06/11/23 Albuterol Inhaler [Ventolin Hfa 1 puff INHALATION RT-QID PRN 06/11/23 06/11/23 Inhaler] Metoprolol Tartrate [Lopressor] 25 mg PO BID 06/11/23 06/11/23 Sacubitril/Valsartan [Entresto 24 1 tab PO BID 06/11/23 06/11/23 mg-26 mg Tablet] Previous Rx's Medication Instructions Recorded Apixaban [Eliquis] 5 mg PO BID #60 tab 04/15/23 Atorvastatin [Lipitor] 40 mg PO DAILY #30 tab 04/15/23 Empagliflozin [Jardiance] 10 mg PO DAILY #30 tab 04/15/23 Pantoprazole [Protonix] 40 mg PO AC-BRKFST #30 tab 04/15/23 Spironolactone [Aldactone] 25 mg PO DAILY #30 tab 04/15/23 Furosemide [Lasix] 40 mg PO BID@0900,1600 #90 tab 06/16/23 Allergies Allergy/AdvReac Type Severity Reaction Status Date / Time No Known Allergies Allergy Verified 06/11/23 17:08 Review of Systems ROS Statement: Those systems with pertinent positive or pertinent negative responses have been documented in the HPI. ROS Other: All systems not noted in ROS Statement are negative. Constitutional: Denies: fever, chills Respiratory: Reports: dyspnea. Denies: cough, wheezes Cardiovascular: Reports: chest pain, dyspnea on exertion, orthopnea, edema. Denies: palpitations, syncope Gastrointestinal: Denies: abdominal pain, nausea, vomiting, diarrhea Genitourinary: Denies: dysuria, hematuria Musculoskeletal: Denies: back pain Skin: Denies: rash Neurological: Denies: headache, weakness EKG Findings - EKG Results: EKG: interpreted by ERMD EKG shows: atrial fibrillation (Rate 102) - Blocks, [place], Hypertrophy, ST Abn: AV and intraventricular conduction: left bundle branch block (fixed/intermittent, complete/incomplete) Past Medical History Past Medical History: Atrial Fibrillation, Heart Failure, Hyperlipidemia Additional Past Medical History / Comment(s): high cholestrol History of Any Multi-Drug Resistant Organisms: None Reported Past Surgical History: Appendectomy, Hernia Repair Past Anesthesia/Blood Transfusion Reactions: No Reported Reaction Past Psychological History: Depression Smoking Status: Never smoker Past Alcohol Use History: None Reported Past Drug Use History: Marijuana - Past Family History Mother Family Medical History: Hyperlipidemia General Exam Limitations: no limitations General appearance: alert, in no apparent distress Head exam: Present: atraumatic, normocephalic Eye exam: Present: normal appearance. Absent: scleral icterus, conjunctival injection Neck exam: Present: normal inspection Respiratory exam: Present: respiratory distress, rales. Absent: wheezes, rhonchi, stridor, accessory muscle use Cardiovascular Exam: Present: irregular rhythm, systolic murmur. Absent: diastolic murmur, rubs, gallop GI/Abdominal exam: Present: soft. Absent: distended, tenderness, guarding, rebound, rigid, mass Extremities exam: Present: normal inspection, normal capillary refill, pedal edema. Absent: calf tenderness Back exam: Present: normal inspection. Absent: CVA tenderness (R), CVA ten derness (L) Neurological exam: Present: alert Skin exam: Present: warm, dry, intact, normal color. Absent: rash Course Vital Signs 01/27/24 01/27/24 01/27/24 15:54 17:55 19:50 Pulse Rate 75 92 86 Respiratory 34 H 26 H 24 Rate Blood Pressure 120/102 135/114 130/84 O2 Sat by Pulse 96 97 96 Oximetry Chest Pain MDM - [facility] Patient is 62-year-old man here mainly for dyspnea but there is also component of the chest pain. The dyspnea appears to be multifactorial related to pleural effusions, probably contribution of COPD and there is probably component of congestive heart failure. In addition patient in atrial fibrillation. Patient be admitted to have further evaluation and treatment. Patient had chest x-ray which I interpreted as showing small pleural effusions bilaterally. The patient had CT scan of the chest which I interpreted as negative for pulmonary embolism. There are bilateral pleural effusions. Was pt. sent in by a medical professional or institution (, PA, PROFESSIONAL ATHLETE, urgent care, hospital, or residential...) When possible be specific @ -[No] Did you speak to anyone other than the patient for history (EMS, parent, family, police, friend...)? What history was obtained from this source @ -[No] Did you review nursing and triage notes (agree or disagree)? Why? @ -[I reviewed and agree with nursing and triage notes] Were old charts reviewed (outside hosp., previous admission, EMS record, old EKG, old radiological studies, urgent care reports/EKG's, residential records)? Report findings @ -[No old charts were reviewed] Differential Diagnosis (chest pain, altered mental status, abdominal pain women, abdominal pain men, vaginal bleeding, weakness, fever, dyspnea, syncope, headache, dizziness, GI bleed, back pain, seizure, CVA, palpatations, mental health, musculoskeletal)? @ -Differential Dyspnea: Coronary syndrome, arrhythmia, tamponade, asthma, COPD, pulmonary embolism, pneumonia, pneumothorax, pulmonary effusion, anaphylaxis, diabetic ketoacidosis, flailed chest, pulmonary contusion, diaphragmatic rupture, anemia, neuromuscular, this is not meant to be an all-inclusive list. EKG interpreted by me (3pts min.). @ -[I interpreted as above] X-rays interpreted by me (1pt min.). @ -[I interpreted as above CT interpreted by me (1pt min.). @ -[I interpreted as above U/S interpreted by me (1pt. min.). @ -[None done] What testing was considered but not performed or refused? (CT, X-rays, U/S, labs)? Why? @ -[None] What meds were considered but not given or refused? Why? @ -[None] Did you discuss the management of the patient with other professionals (professionals i.e. , PA, PROFESSIONAL ATHLETE, lab, RT, psych nurse, social media intern, electroneurodiagnostic technologist, teacher, chairman & chief executive officer, case specialist)? Give summary @ -[Case discussed with admitting physician Was smoking cessation discussed for >3mins.? @ -[No] Was critical care preformed (if so, how long)? @ -[No] Were there social determinants of health that impacted care today? How? (Homelessness, low income, unemployed, alcoholism, drug addiction, transportation, low edu. Level, literacy, decrease access to med. care, correction, rehab)? @ -[No] Was there de-escalation of care discussed even if they declined (Discuss DNR or withdrawal of care, Hospice)? DNR status @ -[No] What co-morbidities impacted this encounter? (DM, HTN, Smoking, COPD, CAD, Cancer, CVA, ARF, Chemo, Hep., AIDS, mental health diagnosis, sleep apnea, morbid obesity)? @ -[None] Was patient admitted / discharged? Hospital course, mention meds given and route, prescriptions, significant lab abnormalities, going to OR and other pertinent info. @ -[See above Undiagnosed new problem with uncertain prognosis? @ -[No] Drug Therapy requiring intensive monitoring for toxicity (Heparin, Nitro, Insulin, Cardizem)? @ -[No] Were any procedures done? @ -[No] Diagnosis/symptom? @ -[Dyspnea Bilateral pleural effusions Acute, or Chronic, or Acute on Chronic? @ -[Acute Uncomplicated (without systemic symptoms) or Complicated (systemic symptoms)? @ -[Uncomplicated Side effects of treatment? @ -[No] Exacerbation, Progression, or Severe Exacerbation? @ -[No] Poses a threat to life or bodily function? How? (Chest pain, [place], [place], pneumonia, PE, COPD, DKA, ARF, appy, cholecystitis, CVA, Diverticulitis, Homicidal, Suicidal, threat to staff... and all critical care pts) @ -[Yes further progression may result in respiratory failure Disposition Clinical Impression: Congestive heart failure, Chest pain, Pleural effusion Disposition: ADMITTED IP TO THIS HOSP Condition: Stable Is patient prescribed a controlled substance at d/c from ED?: No
[2023-06-11 17:46] LABS: Appearance,Urine Clear (Clear); Bilirubin,Urine Negative (Negative); Blood,Urine Negative (Negative); Color,Urine Colorless; Glucose,Urine (UA) Negative (Negative); Ketones,Urine Negative (Negative); Leukocyte Esterase,Urine Negative (Negative); Nitrite,Urine Negative (Negative); PH, Urine 6.5 (5.0-8.0); Protein,Urine Trace (Negative); Urobilinogen,Urine <2.0 mg/dL (<2.0)
[2023-06-11 17:49] LABS: INR 1.5 (<1.2); Prothrombin Time 15.4 sec (10.0-12.5)
[2023-06-11 17:50] LABS: Partial Thromboplastin Time 25.7 sec (22.0-30.0)
[2023-06-11 18:06] LABS: ALT 24 U/L (4-49); AST 27 U/L (17-59); African American GFR (CKD) >90 (>60 ml/min/1.73 sqM); Albumin 3.9 g/dL (3.5-5.0); Alkaline Phosphatase 75 U/L (38-126); Amylase 55 U/L (30-110); Anion Gap 10 mmol/L; Blood Urea Nitrogen 23 mg/dL (9-20); Carbon Dioxide 22 mmol/L (22-30); Chloride 110 mmol/L (98-107); Glucose 95 mg/dL (74-99); Lipase 91 U/L (23-300); Magnesium 1.8 mg/dL (1.6-2.3); Non-African American GFR(CKD) 88 (>60 ml/min/1.73 sqM); Potassium 3.6 mmol/L (3.5-5.1); Sodium 142 mmol/L (137-145); Total Bilirubin 1.7 mg/dL (0.2-1.3); Total Protein 6.7 g/dL (6.3-8.2)
[2023-06-11 18:14] LABS: NT-Pro-B-Type Natriuretic Pept 11500 pg/mL
[2023-06-11] MEDS ORDERED: FUROSEMIDE 10 MG/ML 4 ML VIAL IV STA (18:34)
--- NOTE | 2023-06-11 19:06 | CT ---
CTA CHEST EXAMINATION TYPE: CT chest angio for PE DATE OF EXAM: 06/11/2023 INDICATION: SOB CT DLP: 654.1 mGycm, Automated exposure control for dose reduction was used. CONTRAST: Patient injected with 100ml mL of Isovue 370. COMPARISON: None TECHNIQUE: CT of the chest is performed on a spiral scan at 2 mm thick sections. Study is performed with intravenous contrast timed for evaluation for pulmonary embolism. This will limit additional po rtions of the evaluation. 3-D MIP images reconstructed by the technologist are reviewed on the compu ter in the coronal and sagittal planes. FINDINGS: No persistent filling defects are evident to suggest an acute pulmonary embolism. No mediastinal or hilar adenopathy enlarged by CT criteria is evident. The ascending aorta diameter at the level of the main pulmonary artery is 4.4 cm. The main pulmonary artery diameter at the bifurcation is 3.6 cm. There is a small to moderate right pleural effusion and small left pleural effusion. Some right infra hilar atelectasis is likely present. There is some increased density along the periphery of the lingu la likely atelectasis or pneumonia. Limited CT sections were through the upper abdomen. Upper abdomen appears unremarkable. IMPRESSION: 1. No acute pulmonary embolism. 2. Small to moderate right and small left pleural effusion. 3. Bibasilar infiltrates, correlate for atelectasis.
[2023-06-11] MEDS ORDERED: ALBUTEROL NEBULIZED 2.5 MG/3 ML INHALATION PRN (19:30)
[2023-06-11] MEDS ORDERED: LOPERAMIDE 2 MG CAP PO PRN (19:30)
[2023-06-11] MEDS: APIXABAN 5 MG TAB PO SCH (20:36)
[2023-06-11] MEDS: METOPROLOL TARTRATE 25 MG TAB PO SCH (20:36)
[2023-06-11] MEDS: SACUBITRIL/VALSARTAN 24 MG-26 MG TABLET PO SCH (20:36)
--- NOTE | 2023-06-11 23:09 | P.HPIM ---
History of Present Illness H&P Date: 06/11/23 Patient is a 62-year-old male with a PMH of systolic CHF EF 25 to 30%, nonischemic cardiomyopathy, A-fib on Eliquis, type II DM, hypertension, and hyperlipidemia who presents to the emergency room with complaints of shortness of breath. Patient reports he has been experiencing gradually worsening dyspnea over the past 1 month with lower extremity edema and orthopnea. He reported brief episode of epigastric chest discomfort earlier today, which prompted him to contact EMS. The pain was substernal and epigastric, 6 out of 10 at maximal intensity, nonradiating, with no alleviating or exacerbating features, with the discomfort resolved after receiving nitroglycerin in the emergency room and has not recurred. He reports that his symptoms are similar to his previous hospitalization in March 2023 when he was admitted for CHF exacerbation. The patient reports that he had ran out of some of his medications and is not sure which one he is supposed to be taking. He is currently staying with a friend and has not been able to follow-up with his appointments including cardiology. In the emergency room chest CTA revealed small to moderate right and small left- sided pleural effusion with bibasilar infiltrates. EKG revealed A-fib with RVR of 102 bpm with a left bundle branch block (bundle branch also present on EKG from March 2023). Laboratory evaluation was remarkable for troponin less than 0.012, proBNP 11,500, total bilirubin 1.7, BUN 23, creatinine 0.92, hemoglobin 12.1. Of note, reviewed the patient's medication list that he was given on discharge from recent hospitalization as well as the medications he had on his person. The patient was reportedly discharged on Bumex and his Lasix was discontinued, however he is currently taking 20 mg p.o. daily of Lasix and has ran out of her 40 mg daily prescription. ED documentation reviewed and case discussed with ED provider. Review of systems: Pertinent positives and negatives as discussed in HPI, a complete review of systems was performed and all other systems are negative. Physical examination: Vital signs reviewed General: non toxic, no distress, appears at stated age, normal weight Derm: no unusual rashes/lesions, warm Head: atraumatic, normocephalic, symmetric Eyes: EOMI, no lid lag, anicteric sclera, pupils equal round reactive to light ENT: Nose and ears atraumatic Neck: No cervical lymphadenopathy, trachea midline, supple Mouth: no lip lesion, mucus membranes moist Cardiovascular: S1S2 reg, no murmur, positive dorsalis pedis pulse bilateral, 2+ bilateral lower extremity pitting edema Lungs: Bibasilar coarse breath sounds with decreased breath sounds at right base, no accessory muscle use Abdominal: soft, nontender to palpation, no guarding Ext: muscle strength 5 out of 5 in all 4 extremities grossly, no gross muscle atrophy, no contractures, Neuro: CN II-XI grossly intact, no gross focal neuro deficits Psych: Alert, oriented, appropriate affect Assessment: Acute hypoxic respiratory failure in setting of acute CHF exacerbation Chronic conditions: A-fib, type II DM, hypertension, hyperlipidemia Imaging: In the emergency room chest CTA revealed small to moderate right and small left- sided pleural effusion with bibasilar infiltrates. EKG revealed A-fib with RVR of 102 bpm with a left bundle branch block (bundle branch also present on EKG from March 2023). Data Review: Laboratory evaluation was remarkable for troponin less than 0.012, proBNP 11,500, total bilirubin 1.7, BUN 23, creatinine 0.92, hemoglobin 12.1. Plan: Continue with Lasix 40 mg IV every 8 hourly Cardiology consult Cardiac monitoring Trend troponin Intake and output Daily weights CHF education Follow-up procalcitonin levels Insulin sliding scale and blood glucose monitoring Continue with home medications DVT prophylaxis: Eliquis The patient is admitted with an anticipated greater than 2 midnight stay for evaluation of CHF exacerbation CODE STATUS: Full Code Discussed with: Patient Anticipated discharge place: Home Past Medical History Past Medical History: Atrial Fibrillation, Heart Failure, Hyperlipidemia Additional Past Medical History / Comment(s): high cholestrol History of Any Multi-Drug Resistant Organisms: None Reported Past Surgical History: Appendectomy, Hernia Repair Past Anesthesia/Blood Transfusion Reactions: No Reported Reaction Past Psychological History: Depression Additional Psychological History / Comment(s): Patient is homeless. Smoking Status: Never smoker Past Alcohol Use History: None Reported Past Drug Use History: Marijuana - Past Family History Mother Family Medical History: Hyperlipidemia Medications and Allergies Home Medications Medication Instructions Recorded Confirmed Type Loperamide [Imodium] 2 mg PO BID PRN 04/11/23 06/11/23 History Apixaban [Eliquis] 5 mg PO BID #60 tab 04/15/23 06/11/23 Rx Atorvastatin [Lipitor] 40 mg PO DAILY #30 tab 04/15/23 06/11/23 Rx Empagliflozin [Jardiance] 10 mg PO DAILY #30 tab 04/15/23 06/11/23 Rx Pantoprazole [Protonix] 40 mg PO AC-BRKFST #30 tab 04/15/23 06/11/23 Rx Spironolactone [Aldactone] 25 mg PO DAILY #30 tab 04/15/23 06/11/23 Rx Albuterol Inhaler [Ventolin Hfa 1 puff INHALATION RT-QID PRN 06/11/23 06/11/23 History Inhaler] Furosemide [Lasix] 20 mg PO DAILY 06/11/23 06/11/23 History Metoprolol Tartrate [Lopressor] 25 mg PO BID 06/11/23 06/11/23 History Sacubitril/Valsartan [Entresto 24 1 tab PO BID 06/11/23 06/11/23 History mg-26 mg Tablet] Allergies Allergy/AdvReac Type Severity Reaction Status Date / Time No Known Allergies Allergy Verified 06/11/23 17:08 Physical Exam Vitals: Vital Signs Temp Pulse Pulse Resp BP BP Pulse Ox 06/11/23 21:36 97.5 F L 69 18 162/97 95 06/11/23 19:50 86 24 130/84 96 06/11/23 17:55 92 26 H 135/114 97 06/11/23 15:54 75 34 H 120/102 96 Intake and Output 06/11/23 06/11/23 06/12/23 14:59 22:59 06:59 Other: Weight 115.666 kg Results CBC & Chem 7: 06/11/23 17:08 06/11/23 16:59 Labs: Abnormal Lab Results - Last 24 Hours (Table) 06/11/23 06/11/23 06/11/23 Range/Units 16:59 17:08 17:08 RBC 4.12 L (4.30-5.90) m/uL Hgb 12.1 L (13.0-17.5) gm/dL Hct 36.7 L (39.0-53.0) % RDW 16.5 H (11.5-15.5) % Lymphocytes # 0.9 L (1.0-4.8) k/uL PT 15.4 H (10.0-12.5) sec INR 1.5 H (<1.2) D-Dimer 1.55 H (<0.60) mg/L FEU Chloride 110 H (98-107) mmol/L BUN 23 H (9-20) mg/dL Total Bilirubin 1.7 H (0.2-1.3) mg/dL Urine Protein (Negative) 06/11/23 Range/Units 17:08 RBC (4.30-5.90) m/uL Hgb (13.0-17.5) gm/dL Hct (39.0-53.0) % RDW (11.5-15.5) % Lymphocytes # (1.0-4.8) k/uL PT (10.0-12.5) sec INR (<1.2) D-Dimer (<0.60) mg/L FEU Chloride (98-107) mmol/L BUN (9-20) mg/dL Total Bilirubin (0.2-1.3) mg/dL Urine Protein Trace H (Negative) Thrombosis Risk Factor Assmnt - Choose All That Apply Any of the Below Risk Factors Present?: No
[2023-06-11] MEDS: FUROSEMIDE 10 MG/ML 4 ML VIAL IV SCH (23:29)
[2023-06-12 05:06] LABS: ALT 24 U/L (4-49); AST 32 U/L (17-59); African American GFR (CKD) >90 (>60 ml/min/1.73 sqM); Albumin 4.1 g/dL (3.5-5.0); Albumin/Globulin Ratio 1.4; Alkaline Phosphatase 90 U/L (38-126); Anion Gap 13 mmol/L; Blood Urea Nitrogen 21 mg/dL (9-20); Calcium 8.9 mg/dL (8.4-10.2); Carbon Dioxide 22 mmol/L (22-30); Chloride 106 mmol/L (98-107); Glucose 91 mg/dL (74-99); Magnesium 1.8 mg/dL (1.6-2.3); Non-African American GFR(CKD) >90 (>60 ml/min/1.73 sqM); Potassium 3.3 mmol/L (3.5-5.1); Sodium 141 mmol/L (137-145); Total Bilirubin 1.7 mg/dL (0.2-1.3); Total Protein 7.1 g/dL (6.3-8.2)
[2023-06-12 05:26] LABS: Glucose,Whole Blood 88 mg/dL (70-110)
[2023-06-12] MEDS: INSULIN ASPART (NovoLOG) 100 UNIT/ML VIAL SQ SCH ×4 (05:54→20:46)
[2023-06-12] MEDS ORDERED: ACETAMINOPHEN TAB 325 MG TAB PO STA (05:58)
[2023-06-12] MEDS: PANTOPRAZOLE 40 MG TABLET PO SCH (06:16)
[2023-06-12 06:53] LABS: Anisocytosis Slight; HCT 38.6 % (39.0-53.0); HGB 12.9 gm/dL (13.0-17.5); Hypochromasia Moderate; MCH 29.8 pg (25.0-35.0); MCHC 33.3 g/dL (31.0-37.0); MCV 89.7 fL (80.0-100.0); Mean Platelet Volume 8.5; Platelet Count 267 k/uL (150-450); RBC 4.31 m/uL (4.30-5.90); RDW 16.4 % (11.5-15.5)
[2023-06-12 07:04] LABS: African American GFR (CKD) >90 (>60 ml/min/1.73 sqM); Anion Gap 10 mmol/L; Blood Urea Nitrogen 21 mg/dL (9-20); Calcium 8.9 mg/dL (8.4-10.2); Carbon Dioxide 25 mmol/L (22-30); Chloride 106 mmol/L (98-107); Glucose 83 mg/dL (74-99); Non-African American GFR(CKD) >90 (>60 ml/min/1.73 sqM); Potassium 3.3 mmol/L (3.5-5.1); Sodium 141 mmol/L (137-145)
[2023-06-12] MEDS ORDERED: POTASSIUM CHLORIDE ER 20 MEQ TAB.ER PO STA (07:52)
[2023-06-12] MEDS ORDERED: MAGNESIUM SULFATE-D5W PMX 1 GM in DEXTROSE/WATER 1 100ML.BAG IVPB SCH (08:00)
--- NOTE | 2023-06-12 08:31 | US ---
EXAMINATION TYPE: US chest DATE OF EXAM: 06/12/2023 COMPARISON: CT & CXR CLINICAL INDICATION: Male, 62 years old with history of rt effusion; Right effusion TECHNIQUE: Targeted ultrasound of the posterior lower right hemithorax EXAM MEASUREMENTS: Right Pleural Effusion pocket size: 14.1 cm Right skin surface to fluid distance: 5.1 cm Right side marked for possible thoracentesis outside the dept. Pulmonologists are able to review the images in the patient?s EMR. IMPRESSIONS: Right pleural effusion
[2023-06-12] MEDS: APIXABAN 5 MG TAB PO SCH ×2 (08:34→20:47)
[2023-06-12] MEDS: SPIRONOLACTONE 25 MG TAB PO SCH (08:34)
[2023-06-12] MEDS: METOPROLOL TARTRATE 25 MG TAB PO SCH ×2 (08:34→20:47)
[2023-06-12] MEDS: FUROSEMIDE 10 MG/ML 4 ML VIAL IV SCH ×3 (08:34→23:14)
[2023-06-12] MEDS: ATORVASTATIN 40 MG TAB PO SCH (08:34)
[2023-06-12] MEDS ORDERED: DAPAGLIFLOZIN PROPANEDIOL 5 MG TABLET PO SCH (09:00)
[2023-06-12 11:19] LABS: Glucose,Whole Blood 110 mg/dL (70-110)
[2023-06-12] MEDS: SACUBITRIL/VALSARTAN 24 MG-26 MG TABLET PO SCH ×2 (11:24→20:47)
--- NOTE | 2023-06-12 13:08 | P.CNPUL ---
History of Present Illness Consult date: 06/12/23 Requesting physician: Quoc Giang Reason for consult: dyspnea, pleural effusion, abnormal CXR/CT Chief complaint: Chest pain, shortness of breath History of present illness: This is a 62-year-old male patient with a known history of atrial fibrillation, mild coronary artery disease, nonischemic cardiomyopathy with systolic congestive heart failure ejection fraction of 25 to 30%, hyperlipidemia, depression. He has a history of medical noncompliance. He was to follow-up with cardiology after his last admission in April but did not. He also ran out of his medications stating he could not get out to get them refilled. He is originally from the [facility]. He had been treated at [facility] recently as well. He presented here to the emergency room yesterday with complaints of chest pain and shortness of breath. The angiogram ruled out pulmonary embolism. There was some small to moderate right and small left pleural effusions. Basilar infiltrates/atelectasis. White count 7.0. Hemoglobin 12.9. Platelets 267. Sodium 141. Potassium 3.3. Bicarb 25. BUN 21. Creatinine 0.83. Troponin negative x 1. He is seen today in consultation on the regular medical floor. He is sitting up at the bedside. Awake and alert in no acute distress. He is maintaining O2 saturations in the 90s on 4 L/min per nasal cannula. Afebrile. Hemodynamically stable. Has been initiated on Lasix 40 mg IV every 8 hours. Anticoagulated with Eliquis. Review of Systems REVIEW OF SYSTEMS: CONSTITUTIONAL: Denies any recent significant weight loss or weight gain. EYES: Denies change in vision. EARS, NOSE, MOUTH, THROAT: Denies headaches, denies sore throat. CARDIOVASCULAR: Positive for chest pain, no palpitations or syncopal episodes. RESPIRATORY: Positive for shortness of breath, no cough, congestion or hemoptysis. GASTROINTESTINAL: Denies change in appetite, denies abdominal pain GENITOURINARY: Denies hematuria, denies infections. MUSKULOSKELETAL: Denies pain, denies swelling. INTEGUMENTARY: Denies rash, denies eczema. NEUROLOGICAL: Denies recent memory loss, no recent seizure activity. PSYCHIATRIC: Denies anxiety, denies depression. HEMATOLOGIC/LYMPHATIC: Denies anemia, denies enlarged lymph nodes. Past Medical History Past Medical History: Atrial Fibrillation, Heart Failure, Hyperlipidemia Additional Past Medical History / Comment(s): high cholestrol History of Any Multi-Drug Resistant Organisms: None Reported Past Surgical History: Appendectomy, Hernia Repair Past Anesthesia/Blood Transfusion Reactions: No Reported Reaction Past Psychological History: Depression Additional Psychological History / Comment(s): Patient is homeless. Smoking Status: Never smoker Past Alcohol Use History: None Reported Past Drug Use History: Marijuana - Past Family History Mother Family Medical History: Hyperlipidemia Medications and Allergies Home Medications Medication Instructions Recorded Confirmed Type Loperamide [Imodium] 2 mg PO BID PRN 04/11/23 06/11/23 History Apixaban [Eliquis] 5 mg PO BID #60 tab 04/15/23 06/11/23 Rx Atorvastatin [Lipitor] 40 mg PO DAILY #30 tab 04/15/23 06/11/23 Rx Empagliflozin [Jardiance] 10 mg PO DAILY #30 tab 04/15/23 06/11/23 Rx Pantoprazole [Protonix] 40 mg PO AC-BRKFST #30 tab 04/15/23 06/11/23 Rx Spironolactone [Aldactone] 25 mg PO DAILY #30 tab 04/15/23 06/11/23 Rx Albuterol Inhaler [Ventolin Hfa 1 puff INHALATION RT-QID PRN 06/11/23 06/11/23 History Inhaler] Furosemide [Lasix] 20 mg PO DAILY 06/11/23 06/11/23 History Metoprolol Tartrate [Lopressor] 25 mg PO BID 06/11/23 06/11/23 History Sacubitril/Valsartan [Entresto 24 1 tab PO BID 06/11/23 06/11/23 History mg-26 mg Tablet] Allergies Allergy/AdvReac Type Severity Reaction Status Date / Time No Known Allergies Allergy Verified 06/11/23 17:08 Physical Exam Vitals: Vital Signs Temp Pulse Pulse Resp BP BP Pulse Ox 06/12/23 07:17 97.6 F 72 18 136/90 97 06/12/23 01:05 98.0 F 71 18 132/73 98 06/11/23 21:36 97.5 F L 69 18 162/97 95 06/11/23 19:50 86 24 130/84 96 06/11/23 17:55 92 26 H 135/114 97 06/11/23 15:54 75 34 H 120/102 96 Intake and Output 06/11/23 06/12/23 06/12/23 22:59 06:59 14:59 Other: Voiding Method Toilet Weight 115.666 kg 102.5 kg GENERAL EXAM: Alert, 62-year-old male, on 4 L nasal cannula, fairly comfortable in no apparent distress. HEAD: Normocephalic. EYES: Normal reaction of pupils, equal size. NOSE: Clear with pink turbinates. THROAT: No erythema or exudates. NECK: No masses, no JVD. CHEST: No chest wall deformity. LUNGS: Equal air entry with crackles in the posterior bases right greater than left. CVS: S1 and S2 normal with no audible murmur, regular rhythm. ABDOMEN: No hepatosplenomegaly, normal bowel sounds, no guarding or rigidity. SPINE: No scoliosis or deformity SKIN: No rashes CENTRAL NERVOUS SYSTEM: No focal deficits, tone is normal in all 4 extremities. EXTREMITIES: There is 1+ peripheral edema. No clubbing, no cyanosis. Peripheral pulses are intact. Results - Laboratory Findings CBC and BMP: 06/12/23 05:40 06/12/23 05:40 PT/INR, D-dimer PT 15.4 sec (10.0-12.5) H 06/11/23 17:08 INR 1.5 (<1.2) H 06/11/23 17:08 D-Dimer 1.55 mg/L FEU (<0.60) H 06/11/23 17:08 Abnormal lab findings: Abnormal Labs 06/11/23 06/11/23 06/11/23 16:59 17:08 17:08 RBC 4.12 L Hgb 12.1 L Hct 36.7 L RDW 16.5 H Lymphocytes # 0.9 L PT 15.4 H INR 1.5 H D-Dimer 1.55 H Potassium Chloride 110 H BUN 23 H Total Bilirubin 1.7 H Urine Protein 06/11/23 06/12/23 06/12/23 17:08 04:05 05:40 RBC Hgb 12.9 L Hct 38.6 L RDW 16.4 H Lymphocytes # PT INR D-Dimer Potassium 3.3 L Chloride BUN 21 H Total Bilirubin 1.7 H Urine Protein Trace H 06/12/23 05:40 RBC Hgb Hct RDW Lymphocytes # PT INR D-Dimer Potassium 3.3 L Chloride BUN 21 H Total Bilirubin Urine Protein - Diagnostic Findings Chest x-ray: image reviewed CT scan - chest: image reviewed Assessment and Plan Assessment: Acute hypoxemic respiratory failure secondary to an acute exacerbation of systolic congestive heart failure. Ejection fraction 25 to 30% Pleural effusion secondary to above right greater than left Nonischemic cardiomyopathy History of medical noncompliance. Stating he missed his follow-up appointment with cardiology after his last discharge and ran out of his medications recently Atrial fibrillation, anticoagulated with Eliquis Hyperlipidemia History of depression History of marijuana use Plan: The patient was seen and evaluated CT angiogram, chest x-ray, labs and medications reviewed Continue Lasix 40 mg IV every 8 hours Continue on Eliquis Obtain a ultrasound of the chest Titrate the FiO2 as tolerated Educated regarding the importance of medical compliance We will continue to follow and make further recommendations based on his clinical status I have personally seen and examined the patient, performed the documentation and the assessment and plan as written. Number of minutes spent on the visit: 20.
--- NOTE | 2023-06-12 15:21 | P.PN ---
Subjective Progress Note Date: 06/12/23 Hospital course: Patient is a very pleasant 62-year-old male with a past medical history of systolic heart failure with previously known EF of 25 to 30%, nonischemic cardiomyopathy, chronic atrial fibrillation on anticoagulation with Eliquis, hypertension, hyperlipidemia, pulmonary hypertension and type II rqb-[id number]-hlllgecum diabetes mellitus. He presented to the emergency department on 06/11/2023 with a chief complaint of shortness of breath progressively worsening x 1 month accompanied by brief episode of chest pain/discomfort. Patient underwent recent hospitalization 04/12/2023 through 04/15/2023 for CHF exacerbation. Patient reports he ran out of some of his medications and not sure of which ones he has been taking as prescribed. 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 Patient underwent full evaluation upon arrival to our facility. Vital signs upon arrival show blood pressure temp 97.5 F, 120/102, heart rate 75, respiratory rate 34, and SpO2 of 96% on room air. EKG completed upon arrival showing A-fib RVR at 102 bpm with a left bundle branch block, left bundle branch block is not a new finding and was on previous EKG completed 04/11/2023. Chest x-ray completed showing small right pleural effusion with bibasilar infiltrates labs completed and reviewed. CBC showing normocytic anemia with hemoglobin of 12.1. BMP showing mild hyperchloremia with chloride of 110 and prerenal azotemia with BUN of 23. Blood glucose was 95. Magnesium 1.8. Liver profile showing slightly elevated bilirubin of 1.7 otherwise normal findings. proBNP was 11,500. Troponin negative at less than 0.012. Coagulation profile showing elevated PT of 15.4, INR of 1.5, and elevated D-dimer of 1.55. Procalcitonin 0.04. Secondary to elevated D-dimer, CTA chest was completed negative for pulmonary emboli showing small to moderate right and small left pleural effusions with bibasilar infiltrates correlating for atelectasis. Patient was admitted under our services for acute systolic CHF exacerbation with consultation to cardiology. Troponins trended overnight all negative at less than 0.012 x 3 draws. Physical exam: Patient seen and fully evaluated at bedside. He was sitting up on the edge of the bed. He does report improvement in breathing since arrival to our facility. He currently denies having any headache, lightheadedness, dizziness, chest pain, palpitations, or any other complaints. Vital signs reviewed and stable. General: Nontoxic, no distress and appears stated age. Derm: Skin warm and dry, normal coloration for ethnicity. Head: Atraumatic, normocephalic and symmetric. Eyes: EOMs intact, no lid lag, and anicteric sclera Mouth: no lip lesions, mucus membranes moist Cardiovascular: regular rate and rhythm with normal S1S2, no murmur, positive posterior tibial pulses bilaterally, and cap refill < 2 seconds. Lungs: Respirations even, regular, and unlabored. On 4 L O2. Lungs with bibasilar crackles, mild diminished lung sounds right midlung and increased crackles right lower lobe. No wheezing noted. Abdominal: soft, nontender to palpation, no guarding, no appreciable organomegaly. Ext: ROM intact. No gross muscle atrophy, 1+ pitting BLE edema, no contractures. Neuro: Speech clear, face symmetrical and CN II-XII grossly intact with no noted focal neuro deficits. Psych: Alert and oriented to person, place, time, and situation. Appropriate and pleasant affect. Assessment and Plan of Care: Acute exacerbation of chronic systolic heart failure was previously known EF of 25 to 30% Pleural effusions bilaterally, right greater than left Nonischemic cardiomyopathy Chronic atrial fibrillation Hypertension Hyperlipidemia Pulmonary hypertension -Pulmonary consult -Telemetry monitoring -Troponins trended overnight and all negative at less than 0.012 x 3 draws. -ProBNP 11,500 -Continue Daily weights and Close monitoring of I's and O's -Cardiac diet -Lasix 40 mg IVP every 8 hours -Continuation of daily medications including: Eliquis 5 mg twice daily, atorvastatin 40 mg daily, metoprolol 25 mg twice daily, Aldactone 25 mg daily, and Entresto 24-26 mg tablets twice daily. -Continued close monitoring of electrolytes while diuresing. Hypokalemia Potassium 3.3, orders placed for K-Dur 40 mEq p.o. x 1 dose. We will continue to monitor electrolyte levels and replace as indicated based on needs. Type II rnf-axdhklc-iftaercac diabetes mellitus Hold Jardiance and placed patient on glycemic protocol with NovoLog sliding scale. Data and imaging reviewed: Vital signs reviewed. Blood pressure 136/90, heart rate 72, respiratory rate 18, temp 97.6 F, and SpO2 of 97% on 4 L. Morning labs reviewed. CBC showing stable normocytic anemia with hemoglobin of 12.9. BMP revealing hypokalemia with potassium of 3.3 and slightly elevated BUN of 21. CODE STATUS: Full code DVT prophylaxis: Eliquis Anticipated discharge date: Clinical course to determine Anticipated discharge place: Clinical course to determine Patient was seen independently by Nurse Pracitioner. This document was prepared using [employer] dictation software. Please allow for errors in mat maker, while rare they do occur. Yony Mendez NP rendered care for this patient independently, reviewed the findings and plan as documented in the note above. I did not physically speak with or examine the patient on this date. Objective - Vital Signs Vital signs: Vital Signs Temp 97.6 F 06/12/23 07:17 Pulse 72 06/12/23 07:17 Resp 18 06/12/23 07:17 BP 136/90 06/12/23 07:17 Pulse Ox 97 06/12/23 07:17 FiO2 Intake & Output 06/11/23 06/12/23 06/12/23 18:59 06:59 18:59 Weight 115.666 kg 102.5 kg - Labs CBC & Chem 7: 06/12/23 05:40 06/12/23 05:40 Labs: Abnormal Lab Results - Last 24 Hours (Table) 06/11/23 06/11/23 06/11/23 Range/Units 16:59 17:08 17:08 RBC 4.12 L (4.30-5.90) m/uL Hgb 12.1 L (13.0-17.5) gm/dL Hct 36.7 L (39.0-53.0) % RDW 16.5 H (11.5-15.5) % Lymphocytes # 0.9 L (1.0-4.8) k/uL PT 15.4 H (10.0-12.5) sec INR 1.5 H (<1.2) D-Dimer 1.55 H (<0.60) mg/L FEU Potassium (3.5-5.1) mmol/L Chloride 110 H (98-107) mmol/L BUN 23 H (9-20) mg/dL Total Bilirubin 1.7 H (0.2-1.3) mg/dL Urine Protein (Negative) 06/11/23 06/12/23 06/12/23 Range/Units 17:08 04:05 05:40 RBC (4.30-5.90) m/uL Hgb 12.9 L (13.0-17.5) gm/dL Hct 38.6 L (39.0-53.0) % RDW 16.4 H (11.5-15.5) % Lymphocytes # (1.0-4.8) k/uL PT (10.0-12.5) sec INR (<1.2) D-Dimer (<0.60) mg/L FEU Potassium 3.3 L (3.5-5.1) mmol/L Chloride (98-107) mmol/L BUN 21 H (9-20) mg/dL Total Bilirubin 1.7 H (0.2-1.3) mg/dL Urine Protein Trace H (Negative) 06/12/23 Range/Units 05:40 RBC (4.30-5.90) m/uL Hgb (13.0-17.5) gm/dL Hct (39.0-53.0) % RDW (11.5-15.5) % Lymphocytes # (1.0-4.8) k/uL PT (10.0-12.5) sec INR (<1.2) D-Dimer (<0.60) mg/L FEU Potassium 3.3 L (3.5-5.1) mmol/L Chloride (98-107) mmol/L BUN 21 H (9-20) mg/dL Total Bilirubin (0.2-1.3) mg/dL Urine Protein (Negative)
[2023-06-12 16:41] LABS: Glucose,Whole Blood 218 mg/dL (70-110)
[2023-06-12 20:24] LABS: Glucose,Whole Blood 100 mg/dL (70-110)
[2023-06-13 05:34] LABS: Glucose,Whole Blood 87 mg/dL (70-110)
[2023-06-13] MEDS: INSULIN ASPART (NovoLOG) 100 UNIT/ML VIAL SQ SCH ×4 (06:41→21:20)
[2023-06-13] MEDS: PANTOPRAZOLE 40 MG TABLET PO SCH (06:42)
[2023-06-13] MEDS: FUROSEMIDE 10 MG/ML 4 ML VIAL IV SCH ×3 (08:03→23:39)
[2023-06-13] MEDS: SPIRONOLACTONE 25 MG TAB PO SCH (08:04)
[2023-06-13] MEDS: APIXABAN 5 MG TAB PO SCH (08:04)
[2023-06-13] MEDS: SACUBITRIL/VALSARTAN 24 MG-26 MG TABLET PO SCH ×2 (08:04→21:20)
[2023-06-13] MEDS: ATORVASTATIN 40 MG TAB PO SCH (08:04)
[2023-06-13] MEDS: METOPROLOL TARTRATE 25 MG TAB PO SCH ×2 (08:04→21:19)
[2023-06-13 08:29] LABS: HCT 40.5 % (39.6-50.0); HGB 13.1 g/dL (13.0-17.0); MCH 28.2 pg (27.0-32.0); MCHC 32.3 g/dL (32.0-37.0); MCV 87.3 FL (80.0-97.0); Mean Platelet Volume 10.8 FL (9.5-12.2); NRBC Per 100 WBC 0 X 10*3/uL (0.00-0.01); Platelet Count 328 X 10*3/uL (140-440); RBC 4.64 X 10*6/uL (4.40-5.60); RDW 16.1 % (11.5-14.5); WBC 9.78 X 10*3/uL (4.50-10.00)
[2023-06-13 08:50] LABS: ALT 21 U/L (10-49); AST 23 U/L (14-35); Albumin 4.4 g/dL (3.8-4.9); Albumin/Globulin Ratio 1.52 Ratio (1.60-3.17); Alkaline Phosphatase 87 U/L (41-126); Blood Urea Nitrogen 20.8 mg/dL (9.0-27.0); Calcium 9.4 mg/dL (8.7-10.3); Carbon Dioxide 28.7 mmol/L (21.6-31.8); Chloride 101 mmol/L (96-109); Globulin 2.9 g/dL (1.6-3.3); Glucose 87 mg/dL (70-110); Magnesium 1.9 mg/dL (1.5-2.4); Potassium 3.7 mmol/L (3.5-5.5); Sodium 142 mmol/L (135-145); Total Bilirubin 1.1 mg/dL (0.3-1.2); Total Protein 7.3 g/dL (6.2-8.2)
[2023-06-13 11:52] LABS: Glucose,Whole Blood 118 mg/dL (70-110)
[2023-06-13] MEDS ORDERED: ACETAMINOPHEN TAB 325 MG TAB PO PRN (13:22)
[2023-06-13] MEDS ORDERED: MORPHINE SULFATE 4 MG/ML SYRINGE IV PRN (13:23)
--- NOTE | 2023-06-13 14:19 | P.PN ---
Subjective Progress Note Date: 06/13/23 This is a 62-year-old male patient with a known history of atrial fibrillation, mild coronary artery disease, nonischemic cardiomyopathy with systolic congestive heart failure ejection fraction of 25 to 30%, hyperlipidemia, depression. He has a history of medical noncompliance. He was to follow-up with cardiology after his last admission in April but did not. He also ran out of his medications stating he could not get out to get them refilled. He is originally from the [facility]. He had been treated at [place] recently as well. He presented here to the emergency room yesterday with complaints of chest pain and shortness of breath. The angiogram ruled out pulmonary embolism. There was some small to moderate right and small left pleural effusions. Basilar infiltrates/atelectasis. White count 7.0. Hemoglobin 12.9. Platelets 267. Sodium 141. Potassium 3.3. Bicarb 25. BUN 21. Creatinine 0.83. Troponin negative x 1. He is seen today in consultation on the regular medical floor. He is sitting up at the bedside. Awake and alert in no acute distress. He is maintaining O2 saturations in the 90s on 4 L/min per nasal cannula. Afebrile. Hemodynamically stable. Has been initiated on Lasix 40 mg IV every 8 hours. Anticoagulated with Eliquis. The patient is seen today June 13, 2023 and follow-up on the regular medical floor. He is currently sitting up in bed. Awake and alert in no acute distress. He is maintaining good O2 saturations in the 90s on room air. He was found to have a 14.1 cm pocket on ultrasound. His Eliquis will be placed on hold for possible thoracentesis tomorrow. White count 9.7. Hemoglobin 13.1. Platelets 328. Sodium 142. Potassium 3.7. Bicarb 29. BUN 21. Creatinine 1.0. Glucose 87. He remains on bronchodilators as needed. Continued on IV diuretics. No accurate I&O. Objective - Vital Signs Vital signs: Vital Signs Temp 97.3 F L 06/13/23 13:14 Pulse 68 06/13/23 13:14 Resp 20 06/13/23 13:14 BP 128/82 06/13/23 13:14 Pulse Ox 96 06/13/23 13:14 FiO2 Intake & Output 06/12/23 06/13/23 06/13/23 18:59 06:59 18:59 Weight 98 kg Other: Voiding Method Toilet - Exam GENERAL EXAM: Alert, 62-year-old male, on room air, comfortable in no apparent distress. HEAD: Normocephalic. EYES: Normal reaction of pupils, equal size. NOSE: Clear with pink turbinates. THROAT: No erythema or exudates. NECK: No masses, no JVD. CHEST: No chest wall deformity. LUNGS: Equal air entry with crackles in the posterior bases right greater than left. CVS: S1 and S2 normal with no audible murmur, regular rhythm. ABDOMEN: No hepatosplenomegaly, normal bowel sounds, no guarding or rigidity. SPINE: No scoliosis or deformity SKIN: No rashes CENTRAL NERVOUS SYSTEM: No focal deficits, tone is normal in all 4 extremities. EXTREMITIES: There is 1+ peripheral edema. No clubbing, no cyanosis. Per ipheral pulses are intact. - Labs CBC & Chem 7: 06/13/23 03:55 06/13/23 03:55 Labs: Abnormal Lab Results - Last 24 Hours (Table) 06/12/23 06/13/23 06/13/23 Range/Units 16:40 03:55 03:55 RDW 16.1 H (11.5-14.5) % Anion Gap 12.30 H (4.00-12.00) mmol/L BUN/Creatinine Ratio 20.80 H (12.00-20.00) Ratio POC Glucose (mg/dL) 218 H (70-110) mg/dL Albumin/Globulin Ratio 1.52 L (1.60-3.17) Ratio 06/13/23 Range/Units 11:51 RDW (11.5-14.5) % Anion Gap (4.00-12.00) mmol/L BUN/Creatinine Ratio (12.00-20.00) Ratio POC Glucose (mg/dL) 118 H (70-110) mg/dL Albumin/Globulin Ratio (1.60-3.17) Ratio Assessment and Plan Assessment: Acute hypoxemic respiratory failure secondary to an acute exacerbation of systolic congestive heart failure. Ejection fraction 25 to 30% Pleural effusion secondary to above right greater than left Nonischemic cardiomyopathy History of medical noncompliance. Stating he missed his follow-up appointment with cardiology after his last discharge and ran out of his medications recently Atrial fibrillation, anticoagulated with Eliquis Hyperlipidemia History of depression History of marijuana use Plan: The patient was seen and evaluated Ultrasound of the chest, labs and medications reviewed Continue Lasix 40 mg IV every 8 hours Hold Eliquis Plan for thoracentesis tomorrow We will continue to follow I have personally seen and examined the patient, performed the documentation and the assessment and plan as written. Number of minutes spent on the visit: 10.
[2023-06-13 14:48] VITALS: BMI 26.3
[2023-06-13] MEDS: HYDROcodone/APAP 5-325MG 1 EACH TAB PO PRN (15:07)
--- NOTE | 2023-06-13 15:16 | P.PN ---
Subjective Progress Note Date: 06/13/23 Hospital course: Patient is a very pleasant 62-year-old male with a past medical history of systolic heart failure with previously known EF of 25 to 30%, nonischemic cardiomyopathy, chronic atrial fibrillation on anticoagulation with Eliquis, hypertension, hyperlipidemia, pulmonary hypertension and type II taq-cgmdaal-vaersxwyk diabetes mellitus. He presented to the emergency department on 06/11/2023 with a chief complaint of shortness of breath progressively worsening x 1 month accompanied by brief episode of chest pain/discomfort. Patient underwent recent hospitalization 04/12/2023 through 04/15/2023 for CHF exacerbation. Patient reports he ran out of some of his medications and not sure of which ones he has been taking as prescribed. He reports due to his living conditions he has not been able to follow-up outpatient with a primary doctor or operations clerk to get refills. Patient underwent full evaluation upon arrival to our facility. Vital signs upon arrival show blood pressure temp 97.5 F, 120/102, heart rate 75, respiratory rate 34, and SpO2 of 96% on room air. EKG completed upon arrival showing A-fib RVR at 102 bpm with a left bundle branch block, left bundle branch block is not a new finding and was on previous EKG completed 04/11/2023. Chest x-ray completed showing small right pleural effusion with bibasilar infiltrates labs completed and reviewed. CBC showing normocytic anemia with hemoglobin of 12.1. BMP showing mild hyperchloremia with chloride of 110 and prerenal azotemia with BUN of 23. Blood glucose was 95. Magnesium 1.8. Liver profile showing slightly elevated bilirubin of 1.7 otherwise normal findings. proBNP was 11,500. Troponin negative at less than 0.012. Coagulation profile showing elevated PT of 15.4, INR of 1.5, and elevated D-dimer of 1.55. Procalcitonin 0.04. Secondary to elevated D-dimer, CTA chest was completed negative for pulmonary emboli showing small to moderate right and small left pleural effusions with bibasilar infiltrates correlating for atelectasis. Patient was admitted under our services for acute systolic CHF exacerbation with consultation to cardiology. Troponins trended overnight all negative at less than 0.012 x 3 draws. Physical exam: Patient seen and fully evaluated at bedside. He was sitting up on the edge of the bed and reports continued shortness of breath and exertional dyspnea. He currently denies having any headache, lightheadedness, dizziness, chest pain, palpitations, or any other complaints. Vital signs reviewed and stable. General: Nontoxic, no distress and appears stated age. Derm: Skin warm and dry, normal coloration for ethnicity. Head: Atraumatic, normocephalic and symmetric. Eyes: EOMs intact, no lid lag, and anicteric sclera Mouth: no lip lesions, mucus membranes moist Cardiovascular: regular rate and rhythm with normal S1S2, no murmur, positive posterior tibial pulses bilaterally, and cap refill < 2 seconds. Lungs: Respirations even, regular, and unlabored.. Lungs with bibasilar crackles, mild diminished lung sounds right midlung and increased crackles right lower lobe. No wheezing noted. Abdominal: soft, nontender to palpation, no guarding, no appreciable organomegaly. Ext: ROM intact. No gross muscle atrophy, 1+ pitting BLE edema, no contractures. Neuro: Speech clear, face symmetrical and CN II-XII grossly intact with no noted focal neuro deficits. Psych: Alert and oriented to person, place, time, and situation. Appropriate and pleasant affect. Assessment and Plan of Care: Acute exacerbation of chronic systolic heart failure was previously known EF of 25 to 30% Pleural effusions bilaterally, right greater than left Nonischemic cardiomyopathy Chronic atrial fibrillation Hypertension Hyperlipidemia Pulmonary hypertension -Pulmonary following, holding Eliquis and planning for thoracentesis tomorrow. -Telemetry monitoring -Troponins trended and all negative at less than 0.012 x 3 draws. -ProBNP 11,500 -Continue Daily weights and Close monitoring of I's and O's -Cardiac diet -Lasix 40 mg IVP every 8 hours -Continuation of daily medications including: atorvastatin 40 mg daily, metoprolol 25 mg twice daily, Aldactone 25 mg daily, and Entresto 24-26 mg tablets twice daily. -Continued close monitoring of electrolytes while diuresing. Hypokalemia, resolved Potassium 3.7 this morning. We will continue to monitor electrolyte levels and replace as indicated based on needs. Type II rwn-xihspzd-orkswreqn diabetes mellitus Continue to hold Jardiance and placed patient on glycemic protocol with NovoLog sliding scale. Data and imaging reviewed: Vital signs reviewed. Blood pressure 142/85, heart rate 60, respiratory rate 20, temp 97.8 F, and SpO2 of 98% on 3 L O2. Morning labs reviewed. CBC unremarkable. BMP revealing slightly elevated anion gap of 12.30 otherwise no significant abnormalities. Magnesium normal findings at 1.9. Liver profile unremarkable. CODE STATUS: Full code DVT prophylaxis: Eliquis Anticipated discharge date: Clinical course to determine Anticipated discharge place: Clinical course to determine Patient was seen independently by Nurse Pracitioner. This document was prepared using [employer] - is now [employer] dictation software. Please allow for errors in operational communication chief, while rare they do occur. Objective - Vital Signs Vital signs: Vital Signs Temp 98.6 F 06/13/23 00:47 Pulse 68 06/13/23 00:47 Resp 18 06/13/23 00:47 BP 141/85 06/13/23 00:47 Pulse Ox 97 06/13/23 07:59 FiO2 Intake & Output 06/12/23 06/13/23 06/13/23 18:59 06:59 18:59 Weight 98 kg Other: Voiding Method Toilet - Labs CBC & Chem 7: 06/13/23 03:55 06/13/23 03:55 Labs: Abnormal Lab Results - Last 24 Hours (Table) 06/12/23 Range/Units 16:40 POC Glucose (mg/dL) 218 H (70-110) mg/dL
[2023-06-13 16:43] LABS: Glucose,Whole Blood 108 mg/dL (70-110)
[2023-06-13 19:57] LABS: Glucose,Whole Blood 123 mg/dL (70-110)
[2023-06-14 05:37] LABS: Glucose,Whole Blood 86 mg/dL (70-110)
[2023-06-14] MEDS: INSULIN ASPART (NovoLOG) 100 UNIT/ML VIAL SQ SCH ×4 (05:55→20:31)
[2023-06-14] MEDS: PANTOPRAZOLE 40 MG TABLET PO SCH (06:44)
[2023-06-14 09:03] LABS: HCT 42.1 % (39.6-50.0); HGB 13.2 g/dL (13.0-17.0); MCHC 31.4 g/dL (32.0-37.0); MCV 89.4 FL (80.0-97.0); Mean Platelet Volume 10.5 FL (9.5-12.2); NRBC Per 100 WBC 0 X 10*3/uL (0.00-0.01); Platelet Count 301 X 10*3/uL (140-440); RBC 4.71 X 10*6/uL (4.40-5.60); RDW 15.7 % (11.5-14.5); WBC 8.19 X 10*3/uL (4.50-10.00)
[2023-06-14 09:45] LABS: ALT 18 U/L (10-49); AST 18 U/L (14-35); Albumin 3.9 g/dL (3.8-4.9); Alkaline Phosphatase 78 U/L (41-126); BUN/Creat Ratio 22.67 Ratio (12.00-20.00); Blood Urea Nitrogen 20.4 mg/dL (9.0-27.0); Carbon Dioxide 28.9 mmol/L (21.6-31.8); Chloride 102 mmol/L (96-109); Globulin 2.6 g/dL (1.6-3.3); Glucose 88 mg/dL (70-110); Potassium 3.8 mmol/L (3.5-5.5); Sodium 142 mmol/L (135-145); Total Bilirubin 0.7 mg/dL (0.3-1.2); Total Protein 6.5 g/dL (6.2-8.2)
[2023-06-14] MEDS: ATORVASTATIN 40 MG TAB PO SCH (09:50)
[2023-06-14] MEDS: METOPROLOL TARTRATE 25 MG TAB PO SCH ×2 (09:50→20:57)
[2023-06-14] MEDS: SPIRONOLACTONE 25 MG TAB PO SCH (09:50)
[2023-06-14] MEDS: SACUBITRIL/VALSARTAN 24 MG-26 MG TABLET PO SCH ×2 (09:51→20:57)
[2023-06-14] MEDS: FUROSEMIDE 10 MG/ML 4 ML VIAL IV SCH ×3 (10:10→23:25)
--- NOTE | 2023-06-14 11:25 | PCN ---
PROCEDURE NOTE PULMONARY/CRITICAL CARE PROCEDURE NOTE: PROCEDURE PERFORMED: Right-sided thoracentesis. PREOPERATIVE DIAGNOSIS: Right pleural effusion. POSTOPERATIVE DIAGNOSIS: Right pleural effusion. HEALTH CARE FACILITY ADMINISTRATOR: Dr. Watson. FIRST PROFESSOR OF SPORT MANAGEMENT: Dr. Marilyn Pradhan. There was informed consent and universal timeout. The patient's procedure took place in room 480. The posterior chest was marked by ultrasound. Indication: Pleural effusion. A time-out was completed verifying correct patient, procedure, site, positioning , and implant (s) or special equipment if applicable. Ultrasound guidance was/was not used and appropriate fluid pocket was identified and marked. Patient was positioned, prepped and draped in usual sterile fashion. Lidocaine was used to anesthetize the area. A Thoracentesis catheter was introduced into the pleural space and fluid was removed. Blood loss was none. A chest x-ray was ordered to evaluate for pneumothorax. We did the thoracentesis on the right side. 950 mL of dark brown bloody fluid was removed from the right pleural space. The patient tolerated the procedure well. The fluid will be sent for analysis including cytology, cell count, differential, glucose, LDH, protein, and culture. There was no immediate complication. A chest x-ray was ordered. The patient tolerated the procedure well. MMODL / IJN: [id number] /
[2023-06-14 11:44] LABS: Glucose,Whole Blood 104 mg/dL (70-110)
--- NOTE | 2023-06-14 13:25 | P.PN ---
Subjective Progress Note Date: 06/14/23 Hospital course: Patient is a very pleasant 62-year-old male with a past medical history of systolic heart failure with previously known EF of 25 to 30%, nonischemic cardiomyopathy, chronic atrial fibrillation on anticoagulation with Eliquis, hypertension, hyperlipidemia, pulmonary hypertension and type II kil-hzmhwne-gukzudakh diabetes mellitus. He presented to the emergency department on 06/11/2023 with a chief complaint of shortness of breath progressively worsening x 1 month accompanied by brief episode of chest pain/discomfort. Patient underwent recent hospitalization 04/12/2023 through 04/15/2023 for CHF exacerbation. Patient reports he ran out of some of his medications and not sure of which ones he has been taking as prescribed. He reports due to his living conditions he has not been able to follow-up outpatient with a primary doctor or thermodynamics engineer to get refills. Patient underwent full evaluation upon arrival to our facility. Vital signs upon arrival show blood pressure temp 97.5 F, 120/102, heart rate 75, respiratory rate 34, and SpO2 of 96% on room air. EKG completed upon arrival showing A-fib RVR at 102 bpm with a left bundle branch block, left bundle branch block is not a new finding and was on previous EKG completed 04/11/2023. Chest x-ray completed showing small right pleural effusion with bibasilar infiltrates labs completed and reviewed. CBC showing normocytic anemia with hemoglobin of 12.1. BMP showing mild hyperchloremia with chloride of 110 and prerenal azotemia with BUN of 23. Blood glucose was 95. Magnesium 1.8. Liver profile showing slightly elevated bilirubin of 1.7 otherwise normal findings. proBNP was 11,500. Troponin negative at less than 0.012. Coagulation profile showing elevated PT of 15.4, INR of 1.5, and elevated D-dimer of 1.55. Procalcitonin 0.04. Secondary to elevated D-dimer, CTA chest was completed negative for pulmonary emboli showing small to moderate right and small left pleural effusions with bibasilar infiltrates correlating for atelectasis. Patient was admitted under our services for acute systolic CHF exacerbation with consultation to cardiology. Troponins trended overnight all negative at less than 0.012 x 3 draws. Physical exam: Patient seen and fully evaluated at bedside. He was sitting up on the edge of the bed and reports just feeling unwell today. He reports continued shortness of breath and exertional dyspnea. He is scheduled to have thoracentesis later today. He currently denies having any headache, lightheadedness, dizziness, chest pain, palpitations, or any other complaints. Vital signs reviewed and stable. General: Nontoxic, no distress and appears stated age. Derm: Skin warm and dry, normal coloration for ethnicity. Head: Atraumatic, normocephalic and symmetric. Eyes: EOMs intact, no lid lag, and anicteric sclera Mouth: no lip lesions, mucus membranes moist Cardiovascular: regular rate and rhythm with normal S1S2, no murmur, positive posterior tibial pulses bilaterally, and cap refill < 2 seconds. Lungs: Respirations even, regular, and unlabored.. Lungs with bibasilar crackl es, mild diminished lung sounds with bibasilar crackles.. No wheezing noted. Abdominal: soft, nontender to palpation, no guarding, no appreciable organomegaly. Ext: ROM intact. No gross muscle atrophy, scant BLE edema, no contractures. Neuro: Speech clear, face symmetrical and CN II-XII grossly intact with no noted focal neuro deficits. Psych: Alert and oriented to person, place, time, and situation. Appropriate and pleasant affect. Assessment and Plan of Care: Acute exacerbation of chronic systolic heart failure was previously known EF of 25 to 30% Pleural effusions bilaterally, right greater than left Nonischemic cardiomyopathy Chronic atrial fibrillation Hypertension Hyperlipidemia Pulmonary hypertension -Pulmonary following, holding Eliquis and planning for thoracentesis later today. -Telemetry monitoring -Troponins trended and all negative at less than 0.012 x 3 draws. -ProBNP 11,500 -Continue Daily weights and Close monitoring of I's and O's -Cardiac diet -Lasix 40 mg IVP every 8 hours -Continuation of daily medications including: atorvastatin 40 mg daily, metoprolol 25 mg twice daily, Aldactone 25 mg daily, and Entresto 24-26 mg tablets twice daily. -Continued close monitoring of electrolytes while diuresing. Hypokalemia, resolved Potassium 3.8 this morning. We will continue to monitor electrolyte levels and replace as indicated based on needs. Type II odx-yusohvx-udixowbui diabetes mellitus Continue to hold Jardiance and continue patient on glycemic protocol with NovoLog sliding scale. Blood glucose levels have remained stable throughout hospitalization. Data and imaging reviewed: Vital signs reviewed. Blood pressure 128/96, heart rate 86, respiratory rate 18, temp 98.0 F, and SpO2 of 96% on 3 L. Morning labs reviewed. CBC remains unremarkable. BMP also unremarkable with normal electrolytes during IV diuresis with sodium 142, potassium 3.8, and magnesium of 2.0. Renal function remains unremarkable. Liver profile normal findings. CODE STATUS: Full code DVT prophylaxis: Eliquis Anticipated discharge date: Clinical course to determine Anticipated discharge place: Clinical course to determine Patient was seen independently by Nurse Pracitioner. This document was prepared using [employer] dictation software. Please allow for errors in lock plater, while rare they do occur. Objective - Vital Signs Vital signs: Vital Signs Temp 98.0 F 06/14/23 08:00 Pulse 86 06/14/23 08:00 Resp 18 06/14/23 08:00 BP 128/96 06/14/23 08:00 Pulse Ox 96 06/14/23 08:00 FiO2 Intake & Output 06/13/23 06/14/23 06/14/23 18:59 06:59 18:59 Intake Total 480 Balance 480 Weight 98 kg 98 kg Intake: Blood Product 480 Other: # Voids 3 - Labs CBC & Chem 7: 06/14/23 05:25 06/14/23 05:25 Labs: Abnormal Lab Results - Last 24 Hours (Table) 06/13/23 06/13/23 Range/Units 11:51 19:56 POC Glucose (mg/dL) 118 H 123 H (70-110) mg/dL
--- NOTE | 2023-06-14 13:39 | P.PN ---
Subjective Progress Note Date: 06/14/23 This is a 62-year-old male patient with a known history of atrial fibrillation, mild coronary artery disease, nonischemic cardiomyopathy with systolic congestive heart failure ejection fraction of 25 to 30%, hyperlipidemia, depression. He has a history of medical noncompliance. He was to follow-up with cardiology after his last admission in April but did not. He also ran out of his medications stating he could not get out to get them refilled. He is originally from the [facility]. He had been treated at [place] recently as well. He presented here to the emergency room yesterday with complaints of chest pain and shortness of breath. The angiogram ruled out pulmonary embolism. There was some small to moderate right and small left pleural effusions. Basilar infiltrates/atelectasis. White count 7.0. Hemoglobin 12.9. Platelets 267. Sodium 141. Potassium 3.3. Bicarb 25. BUN 21. Creatinine 0.83. Troponin negative x 1. He is seen today in consultation on the regular medical floor. He is sitting up at the bedside. Awake and alert in no acute distress. He is maintaining O2 saturations in the 90s on 4 L/min per nasal cannula. Afebrile. Hemodynamically stable. Has been initiated on Lasix 40 mg IV every 8 hours. Anticoagulated with Eliquis. The patient is seen today June 13, 2023 and follow-up on the regular medical floor. He is currently sitting up in bed. Awake and alert in no acute distress. He is maintaining good O2 saturations in the 90s on room air. He was found to have a 14.1 cm pocket on ultrasound. His Eliquis will be placed on hold for possible thoracentesis tomorrow. White count 9.7. Hemoglobin 13.1. Platelets 328. Sodium 142. Potassium 3.7. Bicarb 29. BUN 21. Creatinine 1.0. Glucose 87. He remains on bronchodilators as needed. Continued on IV diuretics. No accurate I&O. The patient is seen today June 14, 2023 in follow-up on the regular medical floor. He is currently sitting up at the bedside. Awake and alert in no acute distress. Maintaining O2 saturations in the mid 90s on 3 L/min per nasal cannula. Has been afebrile. Hemodynamically stable. He did undergo a right- sided thoracentesis today by Dr. Watson. 975 mL of turbulent yellow fluid removed. Fluid analysis and cytology pending. Follow-up chest x-ray reveals significant improvement in the right-sided pleural effusion. No pneumothorax noted. White count 8.1. Hemoglobin 13.2. Platelets 301. Sodium 142. Potassium 3.8. Bicarb 29. BUN 20. Creatinine 0.9. Glucose 88. His Eliquis will be resumed. He is continued on IV diuretics. No accurate I&O. Objective - Vital Signs Vital signs: Vital Signs Temp 98.0 F 06/14/23 08:00 Pulse 86 06/14/23 08:00 Resp 18 06/14/23 08:00 BP 128/96 06/14/23 08:00 Pulse Ox 98 06/14/23 12:06 FiO2 Intake & Output 06/13/23 06/14/23 06/14/23 18:59 06:59 18:59 Intake Total 480 Balance 480 Weight 98 kg 98 kg Intake: Blood Product 480 Other: # Voids 3 2 - Exam GENERAL EXAM: Alert, oriented 62-year-old male, on 3 L nasal cannula, comfort able in no apparent distress. HEAD: Normocephalic. EYES: Normal reaction of pupils, equal size. NOSE: Clear with pink turbinates. THROAT: No erythema or exudates. NECK: No masses, no JVD. CHEST: No chest wall deformity. LUNGS: Equal air entry with crackles in the posterior bases right greater than l eft. CVS: S1 and S2 normal with no audible murmur, regular rhythm. ABDOMEN: No hepatosplenomegaly, normal bowel sounds, no guarding or rigidity. SPINE: No scoliosis or deformity SKIN: No rashes CENTRAL NERVOUS SYSTEM: No focal deficits, tone is normal in all 4 extremities. EXTREMITIES: There is 1+ peripheral edema. No clubbing, no cyanosis. Peripheral pulses are intact. - Labs CBC & Chem 7: 06/14/23 05:25 06/14/23 05:25 Labs: Abnormal Lab Results - Last 24 Hours (Table) 06/13/23 06/14/23 06/14/23 Range/Units 19:56 05:25 05:25 MCHC 31.4 L (32.0-37.0) g/dL RDW 15.7 H (11.5-14.5) % BUN/Creatinine Ratio 22.67 H (12.00-20.00) Ratio POC Glucose (mg/dL) 123 H (70-110) mg/dL Albumin/Globulin Ratio 1.50 L (1.60-3.17) Ratio Assessment and Plan Assessment: Acute hypoxemic respiratory failure secondary to an acute exacerbation of systolic congestive heart failure. Ejection fraction 25 to 30% Pleural effusion secondary to above right greater than left. Is post right- sided thoracentesis 06/14/2023 with 975, also turbulent fluid removed. Fluid analysis cytology pending Nonischemic cardiomyopathy History of medical noncompliance. Stating he missed his follow-up appointment with cardiology after his last discharge and ran out of his medications recently Atrial fibrillation, anticoagulated with Eliquis Hyperlipidemia History of depression History of marijuana use Plan: The patient was seen and evaluated Chest x-ray, labs and medications reviewed Continue Lasix 40 mg IV every 8 hours Post right-sided thoracentesis today Resume Eliquis Titrate the FiO2 as tolerated We will continue to follow I have personally seen and examined the patient, performed the documentation and the assessment and plan as written. Number of minutes spent on the visit: 10.
--- NOTE | 2023-06-14 14:41 | XR ---
EXAMINATION TYPE: XR chest 1V portable DATE OF EXAM: 06/14/2023 Comparison: 06/11/2023 Clinical History: 62-year-old male Post right thoracentesis Findings: Heart moderately enlarged. Mild hyperinflation. Interstitial and vascular prominence. Patchy opacity at the right base. Alteration and effusions have considerably improved from prior. No appreciable pne umothorax. Impression: Correlate for residual mild pulmonary vascular congestion. Pleural effusions have considerably improv ed. There is some residual patchy atelectasis of the right base.
[2023-06-14 16:28] LABS: Glucose,Whole Blood 132 mg/dL (70-110)
[2023-06-14 19:12] LABS: Glucose, BF Source Pleural Fluid; Glucose, Body Fluid 102 mg/dL; LDH, Body Fluid Source Pleural Fluid; T. Protein, Body Fluid Source Pleural Fluid; Total Protein, Body Fluid 2720 mg/dL
[2023-06-14] MEDS: HYDROcodone/APAP 5-325MG 1 EACH TAB PO PRN (19:41)
[2023-06-14 20:23] LABS: Glucose,Whole Blood 109 mg/dL (70-110)
[2023-06-14 20:24] LABS: Appearance,BF Hazy (Clear)
[2023-06-14] MEDS ORDERED: MELATONIN 5 MG TABLET PO PRN (20:50)
[2023-06-14] MEDS: APIXABAN 5 MG TAB PO SCH (20:56)
[2023-06-15 06:07] LABS: Glucose,Whole Blood 99 mg/dL (70-110)
[2023-06-15] MEDS: INSULIN ASPART (NovoLOG) 100 UNIT/ML VIAL SQ SCH ×4 (06:12→20:44)
[2023-06-15] MEDS: PANTOPRAZOLE 40 MG TABLET PO SCH (07:59)
[2023-06-15] MEDS: METOPROLOL TARTRATE 25 MG TAB PO SCH ×2 (07:59→20:46)
[2023-06-15] MEDS: ATORVASTATIN 40 MG TAB PO SCH (07:59)
[2023-06-15] MEDS: SPIRONOLACTONE 25 MG TAB PO SCH (07:59)
[2023-06-15] MEDS: FUROSEMIDE 10 MG/ML 4 ML VIAL IV SCH ×3 (07:59→23:45)
[2023-06-15] MEDS: APIXABAN 5 MG TAB PO SCH ×2 (07:59→20:46)
[2023-06-15] MEDS: SACUBITRIL/VALSARTAN 24 MG-26 MG TABLET PO SCH ×2 (08:00→20:46)
[2023-06-15 11:35] LABS: Glucose,Whole Blood 132 mg/dL (70-110)
--- NOTE | 2023-06-15 13:43 | P.PN ---
Subjective Progress Note Date: 06/15/23 This is a 62-year-old male patient with a known history of atrial fibrillation, mild coronary artery disease, nonischemic cardiomyopathy with systolic congestive heart failure ejection fraction of 25 to 30%, hyperlipidemia, depression. He has a history of medical noncompliance. He was to follow-up with cardiology after his last admission in April but did not. He also ran out of his medications stating he could not get out to get them refilled. He is originally from the [facility]. He had been treated at [place] recently as well. He presented here to the emergency room yesterday with complaints of chest pain and shortness of breath. The angiogram ruled out pulmonary embolism. There was some small to moderate right and small left pleural effusions. Basilar infiltrates/atelectasis. White count 7.0. Hemoglobin 12.9. Platelets 267. Sodium 141. Potassium 3.3. Bicarb 25. BUN 21. Creatinine 0.83. Troponin negative x 1. He is seen today in consultation on the regular medical floor. He is sitting up at the bedside. Awake and alert in no acute distress. He is maintaining O2 saturations in the 90s on 4 L/min per nasal cannula. Afebrile. Hemodynamically stable. Has been initiated on Lasix 40 mg IV every 8 hours. Anticoagulated with Eliquis. The patient is seen today June 13, 2023 and follow-up on the regular medical floor. He is currently sitting up in bed. Awake and alert in no acute distress. He is maintaining good O2 saturations in the 90s on room air. He was found to have a 14.1 cm pocket on ultrasound. His Eliquis will be placed on hold for possible thoracentesis tomorrow. White count 9.7. Hemoglobin 13.1. Platelets 328. Sodium 142. Potassium 3.7. Bicarb 29. BUN 21. Creatinine 1.0. Glucose 87. He remains on bronchodilators as needed. Continued on IV diuretics. No accurate I&O. The patient is seen today June 14, 2023 in follow-up on the regular medical floor. He is currently sitting up at the bedside. Awake and alert in no acute distress. Maintaining O2 saturations in the mid 90s on 3 L/min per nasal cannula. Has been afebrile. Hemodynamically stable. He did undergo a right- sided thoracentesis today by Dr. Watson. 975 mL of turbulent yellow fluid removed. Fluid analysis and cytology pending. Follow-up chest x-ray reveals significant improvement in the right-sided pleural effusion. No pneumothorax noted. White count 8.1. Hemoglobin 13.2. Platelets 301. Sodium 142. Potassium 3.8. Bicarb 29. BUN 20. Creatinine 0.9. Glucose 88. His Eliquis will be resumed. He is continued on IV diuretics. No accurate I&O. The patient is seen today June 15, 2023 in follow-up on the regular medical floor. He is awake and alert no acute distress. Sitting up at the bedside. Breathing easier today compared to yesterday. Denies any worsening shortness of breath, cough or congestion. He is maintaining good O2 saturations in the 90s on 3 L/min per nasal cannula. He is afebrile. Hemodynamically stable. Pleural fluid cultures and cytology pending. Fluid was transudate with a protein of 2.7 and an LDH of 87. Blood sugar 132. He remains on IV diuretics. Anticoagulated with Eliquis. Objective - Vital Signs Vital signs: Vital Signs Temp 98.0 F 06/15/23 07:08 Pulse 72 06/15/23 07:08 Resp 17 06/15/23 07:08 BP 115/79 06/15/23 07:08 Pulse Ox 97 06/15/23 07:52 FiO2 Intake & Output 06/14/23 06/15/23 06/15/23 18:59 06:59 18:59 Output Total 975 Balance -975 Weight 105.5 kg Output: Other 975 Other: Voiding Method Toilet # Voids 2 1 # Bowel Movements 1 - Exam GENERAL EXAM: Alert, oriented 62-year-old male, on 3 L nasal cannula, sitting up at the bedside, comfortable in no apparent distress. HEAD: Normocephalic. EYES: Normal reaction of pupils, equal size. NOSE: Clear with pink turbinates. THROAT: No erythema or exudates. NECK: No masses, no JVD. CHEST: No chest wall deformity. LUNGS: Equal air entry with crackles in the posterior bases. CVS: S1 and S2 normal with an audible murmur, irregular rhythm. ABDOMEN: No hepatosplenomegaly, normal bowel sounds, no guarding or rigidity. SPINE: No scoliosis or deformity SKIN: No rashes CENTRAL NERVOUS SYSTEM: No focal deficits, tone is normal in all 4 extremities. EXTREMITIES: There is 1+ peripheral edema. No clubbing, no cyanosis. Peripheral pulses are intact. - Labs CBC & Chem 7: 06/14/23 05:25 06/14/23 05:25 Labs: Abnormal Lab Results - Last 24 Hours (Table) 06/14/23 06/14/23 06/15/23 Range/Units 10:30 16:27 11:34 POC Glucose (mg/dL) 132 H 132 H (70-110) mg/dL Fluid Appearance Hazy A (Clear) Microbiology - Last 24 Hours (Table) 06/14/23 10:30 Gram Stain - Preliminary Pleural Fluid Body Fluid Culture - Preliminary Assessment and Plan Assessment: Acute hypoxemic respiratory failure secondary to an acute exacerbation of systolic congestive heart failure. Ejection fraction 25 to 30% Pleural effusion secondary to above right greater than left. Is post right- sided thoracentesis 06/14/2023 with 975, also turbulent fluid removed. Fluid analysis reveals transudate, cytology pending Nonischemic cardiomyopathy History of medical noncompliance. Stating he missed his follow-up appointment with cardiology after his last discharge and ran out of his medications recently Atrial fibrillation, anticoagulated with Eliquis Hyperlipidemia History of depression History of marijuana use Plan: The patient was seen and evaluated Labs and medications reviewed Pleural fluid transudate Continue Lasix 40 mg IV every 8 hours Continue Eliquis Titrate the FiO2 as tolerated To increase his activity as tolerated We will continue to follow I have personally seen and examined the patient, performed the documentation and the assessment and plan as written. Number of minutes spent on the visit: 10.
--- NOTE | 2023-06-15 13:51 | P.PN ---
Subjective Progress Note Date: 06/15/23 Hospital Course: 62-year-old male with history of systolic heart failure, EF 25 to 30%, nonischemic cardiomyopathy, chronic atrial fibrillation on Eliquis, hypertension, dyslipidemia, pulmonary hypertension, type 2 diabetes presented with shortness of breath. Was recently admitted last month for CHF exa cerbation. On arrival, patient was saturating at 96% on room air. EKG showed atrial fibrillation with RVR, with previous left bundle branch block. Chest x- ray showed small right pleural effusion. Labs mostly unremarkable. proBNP 11,000. Troponin negative. D-dimer elevated. Procalcitonin negative. CTA chest did not show any PE, showed small to moderate right and small left pleural effusion. Patient admitted for CHF exacerbation. Remains on IV diuretics. Pulmonology also consulted, status post thoracentesis. Subjective: Patient seen and examined at bedside. No acute events overnight. Claims that shortness of breath is slowly improving. Pertinent positives and negatives as discussed above, a complete review of systems was performed and all other systems are negative. Vitals Signs Reviewed. General: Nontoxic, no distress, appears at stated age Derm: Warm, dry Head: Atraumatic, normocephalic, symmetric Eyes: EOMI, no lid lag, anicteric sclera Mouth: No lip lesion, mucus membranes moist Cardiovascular: S1S2 reg, no murmur Lungs: Bibasilar rales, no accessory muscle use, supplemental oxygen Abdominal: Soft, nontender to palpation, no guarding, no appreciable organ omegaly Ext: No gross muscle atrophy, no edema, no contractures Neuro: CN II-XI grossly intact, no focal neuro deficits Psych: Alert, oriented, appropriate affect Data Reviewed Today: Pertinent Labs: Blood glucose range between 99-1 32, pleural fluid showed 483 WBCs, elevated total protein, exudative. Imaging: No new imaging Assessment and Plan: Acute exacerbation of chronic systolic heart failure was previously known EF of 25 to 30% Acute hypoxic respiratory failure Pleural effusions bilaterally, right greater than left, status post right-sided thoracentesis Nonischemic cardiomyopathy Chronic atrial fibrillation Hypertension Hyperlipidemia Pulmonary hypertension -Pulmonary following -Thoracentesis showed pleural effusion to be exudative. Cultures and cytology pending -Telemetry monitoring -Continue Daily weights and Close monitoring of I's and O's -Cardiac diet -Lasix 40 mg IVP every 8 hours, monitor renal function and electrolytes -Continuation of daily medications including: atorvastatin 40 mg daily, metoprolol 25 mg twice daily, Aldactone 25 mg daily, and Entresto 24-26 mg tablets twice daily. -Continue to wean oxygen Hypokalemia, resolved Type II [id number] diabetes mellitus Continue to hold Jardiance and continue patient on glycemic protocol with NovoLog sliding scale. Blood glucose levels have remained stable throughout hospitalization. DVT ppx: Eliquis Code status: Full code Anticipated discharge place: Pending clinical course Anticipated discharge time: Pending clinical course Objective - Vital Signs Vital signs: Vital Signs Temp 98.0 F 06/15/23 07:08 Pulse 72 06/15/23 07:08 Resp 17 06/15/23 07:08 BP 115/79 06/15/23 07:08 Pulse Ox 97 06/15/23 07:52 FiO2 Intake & Output 06/14/23 06/15/23 06/15/23 18:59 06:59 18:59 Output Total 975 Balance -975 Weight 105.5 kg Output: Other 975 Other: Voiding Method Toilet # Voids 2 1 # Bowel Movements 1 - Labs CBC & Chem 7: 06/14/23 05:25 06/14/23 05:25 Labs: Abnormal Lab Results - Last 24 Hours (Table) 06/14/23 06/14/23 06/15/23 Range/Units 10:30 16:27 11:34 POC Glucose (mg/dL) 132 H 132 H (70-110) mg/dL Fluid Appearance Hazy A (Clear) Microbiology - Last 24 Hours (Table) 06/14/23 10:30 Gram Stain - Preliminary Pleural Fluid Body Fluid Culture - Preliminary
[2023-06-15 16:55] LABS: Glucose,Whole Blood 123 mg/dL (70-110)
[2023-06-15 19:40] LABS: Glucose,Whole Blood 124 mg/dL (70-110)
[2023-06-16 06:03] LABS: Glucose,Whole Blood 90 mg/dL (70-110)
[2023-06-16] MEDS: INSULIN ASPART (NovoLOG) 100 UNIT/ML VIAL SQ SCH ×4 (06:05→20:13)
[2023-06-16 07:28] LABS: African American GFR (CKD) >90 (>60 ml/min/1.73 sqM); Anion Gap 6 mmol/L; Blood Urea Nitrogen 25 mg/dL (9-20); Calcium 8.9 mg/dL (8.4-10.2); Carbon Dioxide 34 mmol/L (22-30); Chloride 101 mmol/L (98-107); Glucose 84 mg/dL (74-99); Magnesium 1.9 mg/dL (1.6-2.3); Non-African American GFR(CKD) >90 (>60 ml/min/1.73 sqM); Potassium 3.6 mmol/L (3.5-5.1); Sodium 141 mmol/L (137-145)
[2023-06-16] MEDS: METOPROLOL TARTRATE 25 MG TAB PO SCH ×2 (08:14→20:13)
[2023-06-16] MEDS: FUROSEMIDE 10 MG/ML 4 ML VIAL IV SCH (08:15)
[2023-06-16] MEDS: SACUBITRIL/VALSARTAN 24 MG-26 MG TABLET PO SCH ×2 (08:15→20:15)
[2023-06-16] MEDS: SPIRONOLACTONE 25 MG TAB PO SCH (08:16)
[2023-06-16] MEDS: ATORVASTATIN 40 MG TAB PO SCH (08:16)
[2023-06-16] MEDS: APIXABAN 5 MG TAB PO SCH ×2 (08:16→20:13)
[2023-06-16] MEDS: PANTOPRAZOLE 40 MG TABLET PO SCH (08:16)
[2023-06-16 11:51] LABS: Glucose,Whole Blood 105 mg/dL (70-110)
[2023-06-16 13:26] LABS: African American GFR (CKD) >90 (>60 ml/min/1.73 sqM); Anion Gap 10 mmol/L; Blood Urea Nitrogen 26 mg/dL (9-20); Calcium 8.7 mg/dL (8.4-10.2); Carbon Dioxide 27 mmol/L (22-30); Chloride 102 mmol/L (98-107); Glucose 138 mg/dL (74-99); Magnesium 1.8 mg/dL (1.6-2.3); Non-African American GFR(CKD) >90 (>60 ml/min/1.73 sqM); Potassium 3.6 mmol/L (3.5-5.1); Sodium 139 mmol/L (137-145)
--- NOTE | 2023-06-16 13:54 | P.PN ---
Subjective Progress Note Date: 06/16/23 This is a 62-year-old male patient with a known history of atrial fibrillation, mild coronary artery disease, nonischemic cardiomyopathy with systolic congestive heart failure ejection fraction of 25 to 30%, hyperlipidemia, depression. He has a history of medical noncompliance. He was to follow-up with cardiology after his last admission in April but did not. He also ran out of his medications stating he could not get out to get them refilled. He is originally from the [facility]. He had been treated at [place] recently as well. He presented here to the emergency room yesterday with complaints of chest pain and shortness of breath. The angiogram ruled out pulmonary embolism. There was some small to moderate right and small left pleural effusions. Basilar infiltrates/atelectasis. White count 7.0. Hemoglobin 12.9. Platelets 267. Sodium 141. Potassium 3.3. Bicarb 25. BUN 21. Creatinine 0.83. Troponin negative x 1. He is seen today in consultation on the regular medical floor. He is sitting up at the bedside. Awake and alert in no acute distress. He is maintaining O2 saturations in the 90s on 4 L/min per nasal cannula. Afebrile. Hemodynamically stable. Has been initiated on Lasix 40 mg IV every 8 hours. Anticoagulated with Eliquis. The patient is seen today June 13, 2023 and follow-up on the regular medical floor. He is currently sitting up in bed. Awake and alert in no acute distress. He is maintaining good O2 saturations in the 90s on room air. He was found to have a 14.1 cm pocket on ultrasound. His Eliquis will be placed on hold for possible thoracentesis tomorrow. White count 9.7. Hemoglobin 13.1. Platelets 328. Sodium 142. Potassium 3.7. Bicarb 29. BUN 21. Creatinine 1.0. Glucose 87. He remains on bronchodilators as needed. Continued on IV diuretics. No accurate I&O. The patient is seen today June 14, 2023 in follow-up on the regular medical floor. He is currently sitting up at the bedside. Awake and alert in no acute distress. Maintaining O2 saturations in the mid 90s on 3 L/min per nasal cannula. Has been afebrile. Hemodynamically stable. He did undergo a right- sided thoracentesis today by Dr. Watson. 975 mL of turbulent yellow fluid removed. Fluid analysis and cytology pending. Follow-up chest x-ray reveals significant improvement in the right-sided pleural effusion. No pneumothorax noted. White count 8.1. Hemoglobin 13.2. Platelets 301. Sodium 142. Potassium 3.8. Bicarb 29. BUN 20. Creatinine 0.9. Glucose 88. His Eliquis will be resumed. He is continued on IV diuretics. No accurate I&O. The patient is seen today June 15, 2023 in follow-up on the regular medical floor. He is awake and alert no acute distress. Sitting up at the bedside. Breathing easier today compared to yesterday. Denies any worsening shortness of breath, cough or congestion. He is maintaining good O2 saturations in the 90s on 3 L/min per nasal cannula. He is afebrile. Hemodynamically stable. Pleural fluid cultures and cytology pending. Fluid was transudate with a protein of 2.7 and an LDH of 87. Blood sugar 132. He remains on IV diuretics. Anticoagulated with Eliquis. The patient is seen today June 16, 2023 and follow-up on the regular medical floor. He is sitting up at the bedside. Awake and alert in no acute distress. Denies any worsening shortness of breath, cough or congestion. Pleural fluid cultures revealed no growth. Sodium 139. Potassium 3.6. Bicarb 27. BUN 26. Creatinine 0.87. Glucose 138. He is continued on bronchodilators. Remains on diuretics. Anticoagulated with Eliquis. Making adequate urine. Continues to maintain good O2 saturations in the 90s on room air. He is afebrile. Hemodynamically stable. Objective - Vital Signs Vital signs: Vital Signs Temp 98.4 F 06/16/23 07:10 Pulse 76 06/16/23 07:10 Resp 18 06/16/23 07:10 BP 98/70 06/16/23 07:10 Pulse Ox 97 06/16/23 07:10 FiO2 Intake & Output 06/15/23 06/16/23 06/16/23 18:59 06:59 18:59 Output Total 300 Balance -300 Weight 110 kg Output: Urine 300 Other: # Voids 6 - Exam GENERAL EXAM: Alert, 62-year-old male, on room air, sitting up at the bedside, in no apparent distress. HEAD: Normocephalic. EYES: Normal reaction of pupils, equal size. NOSE: Clear with pink turbinates. THROAT: No erythema or exudates. NECK: No masses, no JVD. CHEST: No chest wall deformity. LUNGS: Equal air entry with crackles in the posterior bases. CVS: S1 and S2 normal with an audible murmur, irregular rhythm. ABDOMEN: No hepatosplenomegaly, normal bowel sounds, no guarding or rigidity. SPINE: No scoliosis or deformity SKIN: No rashes CENTRAL NERVOUS SYSTEM: No focal deficits, tone is normal in all 4 extremities. EXTREMITIES: There is 1+ peripheral edema. No clubbing, no cyanosis. Peripheral pulses are intact. - Labs CBC & Chem 7: 06/14/23 05:25 06/16/23 12:58 Labs: Abnormal Lab Results - Last 24 Hours (Table) 06/15/23 06/15/23 06/16/23 Range/Units 16:53 19:37 06:06 Carbon Dioxide 34 H (22-30) mmol/L BUN 25 H (9-20) mg/dL Glucose (74-99) mg/dL POC Glucose (mg/dL) 123 H 124 H (70-110) mg/dL 06/16/23 Range/Units 12:58 Carbon Dioxide (22-30) mmol/L BUN 26 H (9-20) mg/dL Glucose 138 H (74-99) mg/dL POC Glucose (mg/dL) (70-110) mg/dL Microbiology - Last 24 Hours (Table) 06/14/23 10:30 Gram Stain - Preliminary Pleural Fluid Body Fluid Culture - Preliminary 06/14/23 10:30 Acid Fast Bacilli Smear - Preliminary Pleural Fluid Assessment and Plan Assessment: Acute hypoxemic respiratory failure secondary to an acute exacerbation of systolic congestive heart failure. Ejection fraction 25 to 30% Pleural effusion secondary to above right greater than left. Is post right- sided thoracentesis 06/14/2023 with 975, also turbulent fluid removed. Fluid analysis reveals transudate, cytology reveals no malignancy Nonischemic cardiomyopathy History of medical noncompliance. Stating he missed his follow-up appointment with cardiology after his last discharge and ran out of his medications recently Atrial fibrillation, anticoagulated with Eliquis Hyperlipidemia History of depression History of marijuana use Plan: The patient was seen and evaluated Labs and medications reviewed Pleural fluid transudate, cytology negative for malignancy Transitioned to oral diuretics Continue Eliquis Currently stable and on room air Cleared for discharge from the pulmonary standpoint I have personally seen and examined the patient, performed the documentation and the assessment and plan as written. Number of minutes spent on the visit: 10.
--- NOTE | 2023-06-16 14:51 | P.DS ---
Providers Date of admission: 06/11/23 19:30 Expected date of discharge: 06/16/23 Attending physician: Radha Madera DO Consults: 06/11/23 19:27 Consult Physician Routine Consulting Provider: Prema Coleman Consult Reason/Comments: pleural effusions Do you want consulting provider notified?: Yes Primary care physician: Stated None Hospital Course: Discharge Diagnosis: Acute exacerbation of chronic systolic heart failure was previously known EF of 25 to 30% Acute hypoxic respiratory failure Pleural effusions bilaterally, right greater than left, status post right-sided thoracentesis Nonischemic cardiomyopathy Chronic atrial fibrillation Hypertension Hyperlipidemia Pulmonary hypertension Hypokalemia Type 2 diabetes Hospital Course: 62-year-old male with history of systolic heart failure, EF 25 to 30%, nonischemic cardiomyopathy, chronic atrial fibrillation on Eliquis, hypertension, dyslipidemia, pulmonary hypertension, type 2 diabetes presented with shortness of breath. Was recently admitted last month for CHF exacerbation. On arrival, patient was saturating at 96% on room air. EKG showed atrial fibrillation with RVR, with previous left bundle branch block. Chest x-ray showed small right pleural effusion. Labs mostly unremarkable. proBNP 11,000. Troponin negative. D-dimer elevated. Procalcitonin negative. CTA chest did not show any PE, showed small to moderate right and small left pleural effusion. Patient admitted for CHF exacerbation. Was on IV diuretics. Pulmonology also consulted, status post thoracentesis, which was transudative. Patient now on room air. Does have slight drop in oxygen with prolonged ambulation, was recommended to go home with O2, however due to patient's current living situation he is not able to accommodate oxygen at home. He will be getting a permanent residence in 2 weeks. He will follow-up with PCP and cardiology, and arrange for O2 outpatient. Patient being discharged on oral diuretics. Patient seen and examined at bedside. Vital signs reviewed and stable. General: Nontoxic, no distress, appears at stated age Derm: Warm, dry Head: Atraumatic, normocephalic, symmetric Eyes: EOMI, no lid lag, anicteric sclera Mouth: No lip lesion, mucus membranes moist Cardiovascular: S1S2 reg, no murmur Lungs: CTA bilateral, no rhonchi, no rales, no accessory muscle use Abdominal: Soft, nontender to palpation, no guarding, no appreciable organomegaly Ext: No gross muscle atrophy, no edema, no contractures Neuro: CN II-XI grossly intact, no focal neuro deficits Psych: Alert, oriented, appropriate affect A total of 33 minutes of time were spent preparing this complex discharge summary. Patient was discharged on 06/16/2023 at 14: 49. Patient Condition at Discharge: Stable Plan - Discharge Summary Discharge Rx Participant: Yes New Discharge Prescriptions: New Furosemide [Lasix] 40 mg PO BID@0900,1600 #90 tab Continue Pantoprazole [Protonix] 40 mg PO AC-BRKFST #30 tab Atorvastatin [Lipitor] 40 mg PO DAILY #30 tab Metoprolol Tartrate [Lopressor] 25 mg PO BID Albuterol Inhaler [Ventolin Hfa Inhaler] 1 puff INHALATION RT-QID PRN PRN Reason: Shortness Of Breath Or Wheezing Sacubitril/Valsartan [Entresto 24 mg-26 mg Tablet] 1 tab PO BID Loperamide [Imodium] 2 mg PO BID PRN PRN Reason: Diarrhea Apixaban [Eliquis] 5 mg PO BID #60 tab Spironolactone [Aldactone] 25 mg PO DAILY #30 tab Empagliflozin [Jardiance] 10 mg PO DAILY #30 tab Discontinued Furosemide [Lasix] 20 mg PO DAILY Discharge Medication List Loperamide [Imodium] 2 mg PO BID PRN 04/11/23 [History] Apixaban [Eliquis] 5 mg PO BID #60 tab 04/15/23 [Rx] Atorvastatin [Lipitor] 40 mg PO DAILY #30 tab 04/15/23 [Rx] Empagliflozin [Jardiance] 10 mg PO DAILY #30 tab 04/15/23 [Rx] Pantoprazole [Protonix] 40 mg PO AC-BRKFST #30 tab 04/15/23 [Rx] Spironolactone [Aldactone] 25 mg PO DAILY #30 tab 04/15/23 [Rx] Albuterol Inhaler [Ventolin Hfa Inhaler] 1 puff INHALATION RT-QID PRN 06/11/23 [History] Metoprolol Tartrate [Lopressor] 25 mg PO BID 06/11/23 [History] Sacubitril/Valsartan [Entresto 24 mg-26 mg Tablet] 1 tab PO BID 06/11/23 [History] Furosemide [Lasix] 40 mg PO BID@0900,1600 #90 tab 06/16/23 [Rx] Follow up Appointment(s)/Referral(s): None,Stated [Primary Care Provider] - 1-2 days Magdy Ramirez MD [Medical Doctor] - 1 Week Patient Instructions/Handouts: Heart Failure (DC), Low-Sodium Diet (DC) Activity/Diet/Wound Care/Special Instructions: Please see your town justice and PCP. Discharge Disposition: HOME SELF-CARE
[2023-06-16 15:49] VITALS: BP 97/63; PULSE 78; RESP 19; TEMP 98.5
[2023-06-16] MEDS ORDERED: FUROSEMIDE 40 MG TAB PO SCH (16:00)
[2023-06-16 16:51] LABS: Glucose,Whole Blood 121 mg/dL (70-110)
== END 2023-06-16 21:01 | disposition home or self-care (01) | DRG 194 ==
LOC: EC 15:53 → 3SCARD 19:30 → 4SSUR 20:04
PROVIDERS: ADMIT Internal Medicine; ATTEND Internal Medicine
PROC: 0W993ZZ Drainage of Right Pleural Cavity, Percutaneous Approach (ICD-10-PCS; principal; 2023-06-14)
DX: I11.0 Hypertensive heart disease with heart failure (principal); J96.01 Acute respiratory failure with hypoxia; I27.22 Pulmonary hypertension due to left heart disease; J91.8 Pleural effusion in other conditions classified elsewhere; E87.8 Other disorders of electrolyte and fluid balance, not elsewhere classified; I42.8 Other cardiomyopathies; I50.23 Acute on chronic systolic (congestive) heart failure; J44.9 Chronic obstructive pulmonary disease, unspecified; I48.20 Chronic atrial fibrillation, unspecified; E11.9 Type 2 diabetes mellitus without complications; F32.A Depression, unspecified; D64.9 Anemia, unspecified; E78.5 Hyperlipidemia, unspecified; I44.7 Left bundle-branch block, unspecified; I25.10 Atherosclerotic heart disease of native coronary artery without angina pectoris; T50.916A Underdosing of multiple unspecified drugs, medicaments and biological substances, initial encounter; E87.6 Hypokalemia; R79.1 Abnormal coagulation profile; Z79.01 Long term (current) use of anticoagulants; Z91.198 Patient's noncompliance with other medical treatment and regimen for other reason; Z91.138 Patient's unintentional underdosing of medication regimen for other reason; Z59.00 Homelessness unspecified; Z28.310 Unvaccinated for COVID-19; Z79.84 Long term (current) use of oral hypoglycemic drugs; Z79.899 Other long term (current) drug therapy
CPT/HCPCS: 36415; 71045; 71046; 71275; 76604; 80048; 80053; 81003; 82150; 82945; 83615; 83690; 83735; 83880; 84145; 84157; 84484; 85025; 85027; 85379; 85610; 85730; 87070; 87075; 87102; 87116; 87205; 87206; 87496; 87498; 87502; 87529; 87634; 87635; 87798; 88108; 88305; 89050; 93005; 94760; 96374; 96375; 99285

== ENCOUNTER 2023-07-19 11:50 | Inpatient (IN) | payer OTHER ==
--- NOTE | 2023-07-19 12:13 | ED ---
SOB HPI - General Source: patient, RN notes reviewed Mode of arrival: ambulatory Limitations: no limitations <Patricia Nicolas - Last Filed: 07/19/23 16:35> <Lio Whyte - Last Filed: 07/19/23 18:14> - General Chief Complaint: Shortness of Breath Stated Complaint: SOB Time Seen by Provider: 07/19/23 12:00 - History of Present Illness Initial Comments: 62-year-old male presents to the emergency department with chief complaint of dyspnea and chest pressure. Patient states that this pressure started yesterday evening and is worse with movement and he is experiencing dyspnea on exertion. Patient denies any chest pain, palpitations, headaches, dizziness, syncope,,congestion. patient states that he has a history of an abnormal heart rhythm, on Eliquis, denies history of HI or stroke. Has known history of conges tive heart failure is on daily Lasix, and patient states that he has taken all required doses. (Patricia Nicolas) - Related Data Home Medications Medication Instructions Recorded Confirmed Loperamide [Imodium] 2 mg PO BID PRN 04/11/23 07/19/23 Albuterol Inhaler [Ventolin Hfa 1 puff INHALATION RT-QID PRN 06/11/23 07/19/23 Inhaler] Metoprolol Tartrate [Lopressor] 25 mg PO BID 06/11/23 07/19/23 Sacubitril/Valsartan [Entresto 24 1 tab PO BID 06/11/23 07/19/23 mg-26 mg Tablet] Previous Rx's Medication Instructions Recorded Apixaban [Eliquis] 5 mg PO BID #60 tab 04/15/23 Atorvastatin [Lipitor] 40 mg PO DAILY #30 tab 04/15/23 Empagliflozin [Jardiance] 10 mg PO DAILY #30 tab 04/15/23 Pantoprazole [Protonix] 40 mg PO AC-BRKFST #30 tab 04/15/23 Spironolactone [Aldactone] 25 mg PO DAILY #30 tab 04/15/23 Furosemide [Lasix] 40 mg PO BID@0900,1600 #90 tab 06/16/23 Allergies Allergy/AdvReac Type Severity Reaction Status Date / Time No Known Allergies Allergy Verified 07/19/23 14:01 Review of Systems ROS Other: All systems not noted in ROS Statement are negative. <Patricia Nicolas - Last Filed: 07/19/23 16:35> ROS Other: All systems not noted in ROS Statement are negative. <Lio Whyte - Last Filed: 07/19/23 18:14> ROS Statement: Those systems with pertinent positive or pertinent negative responses have been documented in the HPI. Past Medical History Past Medical History: Atrial Fibrillation, Heart Failure, COPD, Hyperlipidemia Additional Past Medical History / Comment(s): high cholestrol History of Any Multi-Drug Resistant Organisms: None Reported Past Surgical History: Appendectomy, Hernia Repair Past Anesthesia/Blood Transfusion Reactions: No Reported Reaction Past Psychological History: Depression Smoking Status: Never smoker Past Alcohol Use History: None Reported Past Drug Use History: Marijuana - Past Family History Mother Family Medical History: Hyperlipidemia <Patricia Nicolas - Last Filed: 07/19/23 16:35> General Exam Limitations: no limitations General appearance: alert, in no apparent distress Head exam: Present: atraumatic, normocephalic, normal inspection Eye exam: Present: normal appearance, PERRL, EOMI. Absent: scleral icterus, conjunctival injection, periorbital swelling ENT exam: Present: normal exam, mucous membranes moist Neck exam: Present: normal inspection. Absent: tenderness, meningismus, lym phadenopathy Respiratory exam: Present: decreased breath sounds (bilaterally). Absent: chest wall tenderness, accessory muscle use Cardiovascular Exam: Present: regular rate, normal heart sounds. Absent: systolic murmur, diastolic murmur, rubs, gallop, clicks GI/Abdominal exam: Present: soft, normal bowel sounds. Absent: distended, tenderness, guarding, rebound, rigid Extremities exam: Present: normal inspection, full ROM, normal capillary refill. Absent: tenderness, pedal edema, joint swelling, calf tenderness Back exam: Present: normal inspection Neurological exam: Present: alert, oriented X3, CN II-XII intact Psychiatric exam: Present: normal affect, normal mood Skin exam: Present: warm, dry, intact, normal color. Absent: rash <Patricia Nicolas - Last Filed: 07/19/23 16:35> Course Vital Signs 07/19/23 07/19/23 11:55 13:44 Temperature 97.7 F Pulse Rate 88 104 H Respiratory 18 Rate Blood Pressure 141/91 O2 Sat by Pulse 98 91 L Oximetry Medical Decision Making - Lab Data Result diagrams: 07/19/23 12:25 07/19/23 12:25 <Patricia Nicolas - Last Filed: 07/19/23 16:35> - Lab Data Result diagrams: 07/19/23 12:25 07/19/23 12:25 <Lio Whyte - Last Filed: 07/19/23 18:14> - Medical Decision Making Was pt. sent in by a medical professional or institution (, PA, FREELANCE DIGITAL PROJECT MANAGER, urgent care, hospital, or half-way...) When possible be specific @ -No Did you speak to anyone other than the patient for history (EMS, parent, family, police, friend...)? What history was obtained from this source @ -No Did you review nursing and triage notes (agree or disagree)? Why? @ -I reviewed and agree with nursing and triage notes Were old charts reviewed (outside hosp., previous admission, EMS record, old EKG, old radiological studies, urgent care reports/EKG's, half-way records)? Report findings @ -No old charts were reviewed Differential Diagnosis (chest pain, altered mental status, abdominal pain women, abdominal pain men, vaginal bleeding, weakness, fever, dyspnea, syncope, headache, dizziness, GI bleed, back pain, seizure, CVA, palpatations, mental health, musculoskeletal)? @ -Differential Dyspnea: Coronary syndrome, arrhythmia, tamponade, asthma, COPD, pulmonary embolism, pneumonia, pneumothorax, pulmonary effusion, anaphylaxis, diabetic ketoacidosis, flailed chest, pulmonary contusion, diaphragmatic rupture, anemia, neuromuscular, this is not meant to be an all-inclusive list. EKG interpreted by me (3pts min.). @ -Atrial fibrillation with PVCs, ventricular rate 89, QTc 493 X-rays interpreted by me (1pt min.). @ -Chest x-ray revealed mild to moderate cardiomegaly with interstitial density trace right pleural effusion. CT interpreted by me (1pt min.). @ -None done U/S interpreted by me (1pt. min.). @ -None done What testing was considered but not performed or refused? (CT, X-rays, U/S, labs)? Why? @ -None What meds were considered but not given or refused? Why? @ -None Did you discuss the management of the patient with other professionals (professionals i.e. Dr., PA, FREELANCE DIGITAL PROJECT MANAGER, lab, RT, psych nurse, social services aide, meter/relay technician, teacher, hazard mitigation officer, casey saw operator)? Give summary @ -No Was smoking cessation discussed for >3mins.? @ -No Was critical care preformed (if so, how long)? @ -No Were there social determinants of health that impacted care today? How? (Homelessness, low income, unemployed, alcoholism, drug addiction, transportation, low edu. Level, literacy, decrease access to med. care, group home, rehab)? @ -No Was there de-escalation of care discussed even if they declined (Discuss DNR or withdrawal of care, Hospice)? DNR status @ -No What co-morbidities impacted this encounter? (DM, HTN, Smoking, COPD, CAD, Cancer, CVA, ARF, Chemo, Hep., AIDS, mental health diagnosis, sleep apnea, morbid obesity)? @ -HTN, CAD, congestive heart failure Was patient admitted / discharged? Hospital course, mention meds given and route, prescriptions, significant lab abnormalities, going to OR and other pertinent info. @ -[62-year-old male presents to ED with chief complaint of shortness of breath. Labs unremarkable to previous. BNP 5630, non-elevated troponin and EKG uncha nged from previous and interpreted as above. X-ray revealed trace right pleural effusion. 40 mg IV lasix given to aid in diuresis. ambulatory pulse ox obtained, and patient's oxygen dropped to 92% on room air. Pending psychiatric evaluation, signed out to Dr. Cope. Undiagnosed new problem with uncertain prognosis? @ -No Drug Therapy requiring intensive monitoring for toxicity (Heparin, Nitro, Insulin, Cardizem)? @ -No Were any procedures done? @ -No Diagnosis/symptom? @ -Dyspnea on exertion, right pleural effusion Acute, or Chronic, or Acute on Chronic? @ -Acute Uncomplicated (without systemic symptoms) or Complicated (systemic symptoms)? @ -Uncomplicated Side effects of treatment? @ -No Exacerbation, Progression, or Severe Exacerbation? @ -No Poses a threat to life or bodily function? How? (Chest pain, USA, HI, pneumonia, PE, COPD, DKA, ARF, appy, cholecystitis, CVA, Diverticulitis, Homicidal, Suicidal, threat to staff... and all critical care pts) @ -No (Patricia Nicolas) Patient complained of depression and was seen by mental health. Patient denies [facility] and they did clear him. Patient still complains of dyspnea. Patient states he is only able to walk about 15 feet. Patient also has orthopnea. Patient does not feel comfortable with discharge home. He states no better despite Lasix given several hours ago. Case discussed with Dr. Figueredo, who will admit covering hospital call. Diagnosis: CHF, acute Plans for admission (Lio Whyte) - Lab Data Lab Results 07/19/23 07/19/23 07/19/23 Range/Units 12:25 12:25 12:25 WBC 7.6 (3.8-10.6) k/uL RBC 4.31 (4.30-5.90) m/uL Hgb 12.3 L (13.0-17.5) gm/dL Hct 37.8 L (39.0-53.0) % MCV 87.7 (80.0-100.0) fL MCH 28.6 (25.0-35.0) pg MCHC 32.7 (31.0-37.0) g/dL RDW 15.9 H (11.5-15.5) % Plt Count 199 (150-450) k/uL MPV 8.8 Neutrophils % 76 % Lymphocytes % 14 % Monocytes % 7 % Eosinophils % 1 % Basophils % 1 % Neutrophils # 5.8 (1.3-7.7) k/uL Lymphocytes # 1.1 (1.0-4.8) k/uL Monocytes # 0.5 (0-1.0) k/uL Eosinophils # 0.1 (0-0.7) k/uL Basophils # 0.1 (0-0.2) k/uL Hypochromasia Slight PT 12.8 H (10.0-12.5) sec INR 1.2 H (<1.2) APTT 25.6 (22.0-30.0) sec Sodium 143 (137-145) mmol/L Potassium 3.5 (3.5-5.1) mmol/L Chloride 111 H (98-107) mmol/L Carbon Dioxide 22 (22-30) mmol/L Anion Gap 10 mmol/L BUN 22 H (9-20) mg/dL Creatinine 0.91 (0.66-1.25) mg/dL Est GFR (CKD-EPI)AfAm >90 (>60 ml/min/1.73 sqM) Est GFR (CKD-EPI)NonAf 89 (>60 ml/min/1.73 sqM) Glucose 106 H (74-99) mg/dL Plasma Lactic Acid Robinson (0.7-2.0) mmol/L Calcium 9.0 (8.4-10.2) mg/dL Magnesium 1.9 (1.6-2.3) mg/dL Total Bilirubin 1.1 (0.2-1.3) mg/dL AST 32 (17-59) U/L ALT 28 (4-49) U/L Alkaline Phosphatase 79 (38-126) U/L Troponin I (0.000-0.034) ng/mL NT-Pro-B Natriuret Pep 5630 pg/mL Total Protein 7.4 (6.3-8.2) g/dL Albumin 4.5 (3.5-5.0) g/dL 07/19/23 07/19/23 Range/Units 12:25 12:25 WBC (3.8-10.6) k/uL RBC (4.30-5.90) m/uL Hgb (13.0-17.5) gm/dL Hct (39.0-53.0) % MCV (80.0-100.0) fL MCH (25.0-35.0) pg MCHC (31.0-37.0) g/dL RDW (11.5-15.5) % Plt Count (150-450) k/uL MPV Neutrophils % % Lymphocytes % % Monocytes % % Eosinophils % % Basophils % % Neutrophils # (1.3-7.7) k/uL Lymphocytes # (1.0-4.8) k/uL Monocytes # (0-1.0) k/uL Eosinophils # (0-0.7) k/uL Basophils # (0-0.2) k/uL Hypochromasia PT (10.0-12.5) sec INR (<1.2) APTT (22.0-30.0) sec Sodium (137-145) mmol/L Potassium (3.5-5.1) mmol/L Chloride (98-107) mmol/L Carbon Dioxide (22-30) mmol/L Anion Gap mmol/L BUN (9-20) mg/dL Creatinine (0.66-1.25) mg/dL Est GFR (CKD-EPI)AfAm (>60 ml/min/1.73 sqM) Est GFR (CKD-EPI)NonAf (>60 ml/min/1.73 sqM) Glucose (74-99) mg/dL Plasma Lactic Acid Robinson 1.2 (0.7-2.0) mmol/L Calcium (8.4-10.2) mg/dL Magnesium (1.6-2.3) mg/dL Total Bilirubin (0.2-1.3) mg/dL AST (17-59) U/L ALT (4-49) U/L Alkaline Phosphatase (38-126) U/L Troponin I <0.012 (0.000-0.034) ng/mL NT-Pro-B Natriuret Pep pg/mL Total Protein (6.3-8.2) g/dL Albumin (3.5-5.0) g/dL Disposition Is patient prescribed a controlled substance at d/c from ED?: No <Patricia Nicolas - Last Filed: 07/19/23 16:35> Is patient prescribed a controlled substance at d/c from ED?: No Time of Disposition: 18:14 <Lio Whyte - Last Filed: 07/19/23 18:14> Clinical Impression: Congestive heart failure Narrative: Please return to the Emergency Department if symptoms worsen or any other concerns. (Patricia Nicolas) Disposition: ADMITTED IP TO THIS HOSP Condition: Good Instructions (If sedation given, give patient instructions): Dyspnea (ED) Referrals: None,Stated [Primary Care Provider] - 1-2 days
[2023-07-19 12:37] LABS: Basophils # (A) 0.1 k/uL (0-0.2); Basophils % (A) 1 %; Eosinophils # (A) 0.1 k/uL (0-0.7); Eosinophils % (A) 1 %; HCT 37.8 % (39.0-53.0); HGB 12.3 gm/dL (13.0-17.5); Hypochromasia Slight; Lymphocytes # (A) 1.1 k/uL (1.0-4.8); Lymphocytes % (A) 14 %; MCH 28.6 pg (25.0-35.0); MCHC 32.7 g/dL (31.0-37.0); MCV 87.7 fL (80.0-100.0); Mean Platelet Volume 8.8; Monocytes # (A) 0.5 k/uL (0-1.0); Monocytes % (A) 7 %; Neutrophils # (A) 5.8 k/uL (1.3-7.7); Neutrophils % (A) 76 %; Platelet Count 199 k/uL (150-450); RBC 4.31 m/uL (4.30-5.90); RDW 15.9 % (11.5-15.5); WBC 7.6 k/uL (3.8-10.6)
[2023-07-19 12:45] LABS: INR 1.2 (<1.2); Partial Thromboplastin Time 25.6 sec (22.0-30.0); Prothrombin Time 12.8 sec (10.0-12.5)
[2023-07-19 12:49] LABS: ALT 28 U/L (4-49); AST 32 U/L (17-59); African American GFR (CKD) >90 (>60 ml/min/1.73 sqM); Albumin 4.5 g/dL (3.5-5.0); Alkaline Phosphatase 79 U/L (38-126); Anion Gap 10 mmol/L; Blood Urea Nitrogen 22 mg/dL (9-20); Carbon Dioxide 22 mmol/L (22-30); Chloride 111 mmol/L (98-107); Glucose 106 mg/dL (74-99); Magnesium 1.9 mg/dL (1.6-2.3); Non-African American GFR(CKD) 89 (>60 ml/min/1.73 sqM); Potassium 3.5 mmol/L (3.5-5.1); Sodium 143 mmol/L (137-145); Total Bilirubin 1.1 mg/dL (0.2-1.3); Total Protein 7.4 g/dL (6.3-8.2)
[2023-07-19 12:56] LABS: NT-Pro-B-Type Natriuretic Pept 5630 pg/mL
--- NOTE | 2023-07-19 13:12 | XR ---
EXAMINATION TYPE: XR chest 2V DATE OF EXAM: 07/19/2023 COMPARISON: 06/14/2023 HISTORY: 62-year-old male shortness of breath, difficulty breathing TECHNIQUE: PA and lateral views FINDINGS: Heart mild to moderately enlarged. Hyperinflation. Mild interstitial density. Trace pleural effusion on the right. No john consolidation. Accentuated lower thoracic kyphosis.-Mid and lower thoracic spi ne. IMPRESSION: Mild to moderate cardiomegaly with interstitial density superimposed on COPD. Correlate for mild pulm onary vascular congestion. Trace right pleural effusion.
[2023-07-19] MEDS: FUROSEMIDE 10 MG/ML 4 ML VIAL IV STA (13:52)
[2023-07-19] MEDS: NITROGLYCERIN OINT 1 INCH/GM PACKET TOPICAL SCH (18:31)
[2023-07-19] MEDS: ASPIRIN 325 MG TAB PO STA (18:31)
[2023-07-19] MEDS: FUROSEMIDE 10 MG/ML 4 ML VIAL IV SCH (23:54)
[2023-07-20] MEDS: ACETAMINOPHEN TAB 325 MG TAB PO PRN (03:12)
[2023-07-20] MEDS ORDERED: ALBUTEROL NEBULIZED 2.5 MG/3 ML INHALATION PRN (03:21)
[2023-07-20] MEDS ORDERED: DEXTROSE 50% SYRINGE 50 ML IVP PRN ×2 (03:22)
--- NOTE | 2023-07-20 03:33 | P.HPIM ---
History of Present Illness H&P Date: 07/19/23 Chief Complaint: Shortness of breath 62-year-old male with systolic CHF left ventricular ejection fraction 25% nonischemic cardiomyopathy, A-fib on Eliquis Patient coming in due to worsening shortness of breath. He was recently discharged from the hospital about a month ago where he was treated for acute CHF exacerbation with hypoxia and pleural effusion Patient coming in today reporting some progressive shortness of breath that got worse over the past day or 2, to the point where now he is short of breath even with minimal exertion barely can make it to the bathroom and reports shortness of breath today even at rest while doing nothing reports positive orthopnea he denies any fevers chills sore throat nausea vomiting coughing denies any chest pain denies any abdominal pain denies any GI bleeding denies any changes in bowel or urinary habits. He claims to be compliant with his medications. However he has been noticing some increase swelling in his legs mainly in the left leg denies any history of blood clots. Patient denies any falling however he is getting extremely weak and he is requesting to be placed if he qualifies for rehab Patient denies any tobacco smoking illicit drugs or heavy alcohol review of systems Pertinent positives as noted in HPI. All other systems were reviewed and are negative on exam Constitutional: No acute distress, conversant, pleasant Eyes: Anicteric sclerae, moist conjunctiva, Pupils equal round reactive to light ENMT: NC/AT Oropharynx clear, no erythema, or exudates Neck: Supple, no masses, or JVD No carotid bruits No thyromegaly Lungs: Diminished breath sounds with inspiratory rales at lung bases Clear to percussion Normal respiratory effort, no accessory muscle use Cardiovascular: Heart regular in rate and rhythm, No murmurs, gallops, or rubs Bilateral peripheral leg edema left worse than right Abdominal: Soft Nontender, no guarding, rebound or rigidity Abdomen moving with respiration Normoactive bowel sounds Extremities: No digital cyanosis No clubbing Pedal pulses intact and symmetrical Radial pulses intact and symmetrical No calf tenderness Psychiatric: Alert and oriented to person, place and time Appropriate affect fair judgement Neuro Muscles Strength 4/5 in all 4 extremities Sensation to light touch grossly present throughout Cranial nerves II-XII grossly intact Lymphatics: no palpable cervical or supraclavicular lymph nodes Past Medical History Past Medical History: Atrial Fibrillation, Heart Failure, COPD, Hyperlipidemia Additional Past Medical History / Comment(s): high cholestrol History of Any Multi-Drug Resistant Organisms: None Reported Past Surgical History: Appendectomy, Hernia Repair Past Anesthesia/Blood Transfusion Reactions: No Reported Reaction Past Psychological History: Depression Additional Psychological History / Comment(s): Patient is homeless. Smoking Status: Never smoker Past Alcohol Use History: None Reported Past Drug Use History: Marijuana - Past Family History Mother Family Medical History: Hyperlipidemia Medications and Allergies Home Medications Medication Instructions Recorded Confirmed Type Loperamide [Imodium] 2 mg PO BID PRN 04/11/23 07/19/23 History Apixaban [Eliquis] 5 mg PO BID #60 tab 04/15/23 07/19/23 Rx Atorvastatin [Lipitor] 40 mg PO DAILY #30 tab 04/15/23 07/19/23 Rx Empagliflozin [Jardiance] 10 mg PO DAILY #30 tab 04/15/23 07/19/23 Rx Pantoprazole [Protonix] 40 mg PO AC-BRKFST #30 tab 04/15/23 07/19/23 Rx Spironolactone [Aldactone] 25 mg PO DAILY #30 tab 04/15/23 07/19/23 Rx Albuterol Inhaler [Ventolin Hfa 1 puff INHALATION RT-QID PRN 06/11/23 07/19/23 History Inhaler] Metoprolol Tartrate [Lopressor] 25 mg PO BID 06/11/23 07/19/23 History Sacubitril/Valsartan [Entresto 24 1 tab PO BID 06/11/23 07/19/23 History mg-26 mg Tablet] Furosemide [Lasix] 40 mg PO BID@0900,1600 #90 tab 06/16/23 07/19/23 Rx Allergies Allergy/AdvReac Type Severity Reaction Status Date / Time No Known Allergies Allergy Verified 07/19/23 14:01 Physical Exam Vitals: Vital Signs Temp Pulse Pulse Resp BP BP Pulse Ox 07/19/23 22:00 76 07/19/23 20:51 96.3 F L 76 16 137/90 99 07/19/23 18:27 92 20 137/92 100 07/19/23 13:44 104 H 91 L 07/19/23 11:55 97.7 F 88 18 141/91 98 Intake and Output 07/19/23 07/19/23 07/20/23 14:59 22:59 06:59 Other: # Voids 1 Weight 104.326 kg 104.326 kg Results CBC & Chem 7: 07/19/23 12:25 07/19/23 12:25 Labs: Abnormal Lab Results - Last 24 Hours (Table) 07/19/23 07/19/23 07/19/23 Range/Units 12:25 12:25 12:25 Hgb 12.3 L (13.0-17.5) gm/dL Hct 37.8 L (39.0-53.0) % RDW 15.9 H (11.5-15.5) % PT 12.8 H (10.0-12.5) sec INR 1.2 H (<1.2) Chloride 111 H (98-107) mmol/L BUN 22 H (9-20) mg/dL Glucose 106 H (74-99) mg/dL Assessment and Plan Assessment: 62-year-old male nonischemic cardiomyopathy with chronic systolic CHF with left ventricular ejection fraction 25%. He is coming in with progressive shortness of breath this got worse over the past day or 2 reporting orthopnea and shortness of breath with minimal exertion and at rest I discussed the case with ED doctor accepted the admission for acute CHF exacerbation, rule out left lower extremity DVT with anticipated length of stay more than 2 midnights Acute hypoxic respiratory failure Documented oxygen saturation 91% on room air patient does not use oxygen at home Acute on chronic systolic CHF exacerbation known left ventricular ejection fraction 25-30% IV diuresis with Lasix 40 mg IV push every 8 hours Daily weight Monitor input output Fluid restriction 2 L daily Cardiology consult Resume Entresto, Aldactone Cardiac monitoring Liver enzymes unremarkable Renal function unremarkable sodium 143 potassium 3.5 BUN 22 creatinine 0.9 Troponins negative EKG shows A-fib with unchanged left bundle branch block proBNP elevated 5630 A-fib on Eliquis Continue with metoprolol 25 mg p.o. twice daily Continue with Eliquis Hemoglobin 12.3 unremarkable denies any GI bleeding White count 7.6 unremarkable Diabetes mellitus Insulin sliding scale PT evaluation for placement Check venous Doppler ultrasound of the left lower extremity rule out DVT Full code GI prophylaxis on Protonix DVT prophylaxis on Eliquis for A-fib
[2023-07-20 06:00] LABS: Glucose,Whole Blood 105 mg/dL (70-110)
[2023-07-20] MEDS: INSULIN ASPART (NovoLOG) 100 UNIT/ML VIAL SQ SCH (06:01)
[2023-07-20] MEDS: PANTOPRAZOLE 40 MG TABLET PO SCH (06:08)
[2023-07-20] MEDS: SACUBITRIL/VALSARTAN 24 MG-26 MG TABLET PO SCH (08:56)
[2023-07-20] MEDS: ATORVASTATIN 40 MG TAB PO SCH (08:57)
[2023-07-20] MEDS: ASPIRIN 325 MG TAB PO SCH (08:57)
[2023-07-20] MEDS: APIXABAN 5 MG TAB PO SCH (08:57)
[2023-07-20] MEDS: SPIRONOLACTONE 25 MG TAB PO SCH (08:57)
[2023-07-20] MEDS: METOPROLOL TARTRATE 25 MG TAB PO SCH (08:57)
[2023-07-20 11:37] VITALS: BMI 28.9
--- NOTE | 2023-07-20 11:43 | US ---
EXAMINATION TYPE: US venous doppler duplex LE LT DATE OF EXAM: 07/20/2023 8:42 AM COMPARISON: NONE CLINICAL INDICATION: Male, 62 years old with history of DVT; Leg swelling x 1 year SIDE PERFORMED: Left TECHNIQUE: The lower extremity deep venous system is examined utilizing real time linear array sonog jovanni with graded compression, doppler sonography and color-flow sonography. VESSELS IMAGED: Common Femoral Vein Deep Femoral Vein Greater Saphenous Vein * Femoral Vein Popliteal Vein Small Saphenous Vein * Proximal Calf Veins (* superficial vessels) Left Leg: Negative for DVT Junior Electrical Engineer notes: There is a 3.9x1.6x6.0cm mildly complex fluid collection posteriorly, arising from the joint space. Triphasic waveforms suggestive of increased right atrial pressure IMPRESSION: 1. No evidence for DVT within the left lower extremity imaged from the groin to the upper calf. 2. 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 3. Triphasic venous waveforms can be seen in the setting of elevated cardiac pressures. Clinically co rrelate.
[2023-07-20 12:17] LABS: Glucose,Whole Blood 95 mg/dL (70-110)
[2023-07-20 15:05] VITALS: RESP 16
--- NOTE | 2023-07-20 16:21 | P.PN ---
Subjective Progress Note Date: 07/20/23 Hospital course: Patient is a very pleasant 62-year-old male with a past medical history of nonischemic cardiomyopathy, chronic systolic heart failure with previously known EF of 25-30%, pulmonary hypertension, chronic atrial fibrillation on anticoagulation with Eliquis, previously known left bundle branch block, hypertension, and hyperlipidemia. He presented to the emergency department with a chief complaint of shortness of breath. Patient underwent full evaluation in the emergency department. Vital signs upon arrival show blood pressure 141/91, heart rate 88, respiratory rate 18, temp 97.7 F, and SpO2 of 98% on room air. EKG completed showing atrial fibrillation with a controlled ventricular rate of 89 bpm with a left bundle branch block, left bundle branch block is previously known when compared to previous EKGs. Chest x-ray completed showing mild to moderate cardiomegaly with interstitial densities superimposed on COPD correlate for pulmonary vascular congestion with trace right pleural effusion. Labs completed and reviewed. CBC showing stable normocytic anemia with hemoglobin of 12.3. BMP showing mild hyperchloremia with chloride of 111 and prerenal azotemia with BUN of 22. Blood glucose 106. Magnesium 1.9. Liver profile unremarkable. Troponin was negative at less than 0.012 and proBNP was 5630. Physical exam: Vital signs reviewed and stable. General: Nontoxic, no distress and appears stated age. Derm: Skin warm and dry, normal coloration for ethnicity. Head: Atraumatic, normocephalic and symmetric. Eyes: EOMs intact, no lid lag, and anicteric sclera Mouth: no lip lesions, mucus membranes moist Cardiovascular: Irregularly irregular, systolic murmur, positive posterior tibial pulses bilaterally, and cap refill < 2 seconds. Lungs: Respirations even, regular, and unlabored on room air. Lungs diminished, no rhonchi, no rales, no wheezing, and no accessory muscle usage. Abdominal: soft, nontender to palpation, no guarding, no appreciable organomegaly Ext: ROM intact. No gross muscle atrophy, scant lower extremity edema, no contractures Neuro: Speech clear, face symmetrical and CN II-XII grossly intact with no noted focal neuro deficits Psych: Alert and oriented to person, place, time, and situation. Appropriate and pleasant affect. Assessment and Plan of Care: HFrEF exacerbation with EF of 25 to 30% Nonischemic cardiomyopathy Pulmonary hypertension Chronic atrial fibrillation with left bundle branch block Hypertension Hyperlipidemia -Cardiology consulted, appreciate recommendations -Telemetry monitoring -ProBNP 5630 and troponin negative at less than 0.012. -Daily weights -Close monitoring of I's and O's -Cardiac diet with fluid restriction of 2 L daily -Lasix 40 mg IVP every 8 hours -Continue cardiac medication regimen with Eliquis 5 mg twice daily, aspirin 81 mg daily, atorvastatin 40 mg daily, metoprolol 25 mg twice daily, Entresto 24-26 mg tablets twice daily, and Aldactone 25 mg daily. -Continued close monitoring of electrolytes while diuresing Data and imaging reviewed -Vital signs reviewed. Blood pressure 148/94, heart rate 87, respiratory rate 20, temp 98.0 F, and SpO2 of 97% on room air. . CODE STATUS: Full code DVT prophylaxis: Eliquis Anticipated discharge date: Clinical course to determine Anticipated discharge place: Clinical course to determine Patient was seen independently by Nurse Pracitioner. This document was prepared using [employer] dictation software. Please allow for errors in road monkey, while rare they do occur. Objective - Vital Signs Vital signs: Vital Signs Temp 98 F 07/20/23 07:00 Pulse 87 07/20/23 07:00 Resp 20 07/20/23 07:00 BP 148/94 07/20/23 07:00 Pulse Ox 97 07/20/23 07:00 FiO2 Intake & Output 07/19/23 07/20/23 07/20/23 18:59 06:59 18:59 Output Total 500 Balance -500 Weight 104.326 kg 107.7 kg Output: Urine 500 Other: # Voids 1 - Labs CBC & Chem 7: 07/19/23 12:25 07/19/23 12:25 Labs: Abnormal Lab Results - Last 24 Hours (Table) 07/19/23 07/19/23 07/19/23 Range/Units 12:25 12:25 12:25 Hgb 12.3 L (13.0-17.5) gm/dL Hct 37.8 L (39.0-53.0) % RDW 15.9 H (11.5-15.5) % PT 12.8 H (10.0-12.5) sec INR 1.2 H (<1.2) Chloride 111 H (98-107) mmol/L BUN 22 H (9-20) mg/dL Glucose 106 H (74-99) mg/dL
[2023-07-20 17:32] LABS: Glucose,Whole Blood 87 mg/dL (70-110)
[2023-07-20 20:33] LABS: Glucose,Whole Blood 116 mg/dL (70-110)
[2023-07-21 05:57] LABS: Glucose,Whole Blood 104 mg/dL (70-110)
[2023-07-21] MEDS: ASPIRIN 81 MG PO SCH (08:20)
[2023-07-21 08:46] LABS: ALT 23 U/L (10-49); AST 19 U/L (14-35); Albumin 4.4 g/dL (3.8-4.9); Albumin/Globulin Ratio 1.69 Ratio (1.60-3.17); Alkaline Phosphatase 81 U/L (41-126); BUN/Creat Ratio 19.18 Ratio (12.00-20.00); Blood Urea Nitrogen 21.1 mg/dL (9.0-27.0); Carbon Dioxide 29.6 mmol/L (21.6-31.8); Chloride 104 mmol/L (96-109); Globulin 2.6 g/dL (1.6-3.3); Glucose 112 mg/dL (70-110); Potassium 3.4 mmol/L (3.5-5.5); Sodium 144 mmol/L (135-145); Total Bilirubin 0.7 mg/dL (0.3-1.2)
[2023-07-21 08:50] LABS: HCT 41.4 % (39.6-50.0); HGB 12.9 g/dL (13.0-17.0); MCH 27.2 pg (27.0-32.0); MCHC 31.2 g/dL (32.0-37.0); MCV 87.2 FL (80.0-97.0); Mean Platelet Volume 11.2 FL (9.5-12.2); NRBC Per 100 WBC 0 X 10*3/uL (0.00-0.01); Platelet Count 220 X 10*3/uL (140-440); RBC 4.75 X 10*6/uL (4.40-5.60); RDW 15.3 % (11.5-14.5); WBC 6.91 X 10*3/uL (4.50-10.00)
--- NOTE | 2023-07-21 09:15 | P.CRDCN ---
History of Present Illness Consult date: 07/21/23 Reason for Consult (text): HFrEF exacerbation, patient not established with cardiology History of present illness: History of present illness: This is a 62-year-old male with past medical history of atrial fibrillation on Eliquis, mild nonobstructive CAD, nonischemic cardiomyopathy with EF 15 to 20% in 2021 at [facility], hyperlipidemia, tobacco use and dependence quit 1 year ago. Patient had a recent hospitalization at [facility] on 04/11/2023 and was seen [address] Dr[address] Ramirez at that time for acute systolic heart failure however patient apparently did not follow-up in the office. He had a subsequent hospitalization for CHF exacerbation and pleural effusion status post thoracentesis with removal of 950 mL of dark brown bloody fluid. Cardiology did not see patient during that hospitalization. We have been asked to evaluate the patient for heart failure reduced EF. Patient presented to the emergency center due to shortness of breath, chest pressure and increased lower extremity edema greater in the left than right. Patient has had progressive dyspnea over the past 2 days with dyspnea on exertion, orthopnea. No fever or chills no nausea or vomiting. No cough. Patient currently denies any chest pain. Patient does not recall any discussion regarding pacemaker/AICD. Patient was seen by cardiology during his hospitalization in March 2023 patient has been resumed on his home cardiac medications and started on IV Lasix 40 mg every 8 hours. EKG atrial fibrillation with a left bundle branch block 89 bpm, telemetry atrial fibrillation with controlled rate Chest x-ray: Mild to moderate cardiomegaly with interstitial density superimposed on COPD. Correlate for mild pulmonary vascular congestion. Trace right pleural effusion. Doppler of the left lower extremity negative for DVT. WBC 7.6, hemoglobin 12.3, platelet count 199. INR 1.2. Sodium 143, potassium 3.5, BUN 22 creatinine 0.91. Liver function test are normal. Magnesium 1.9. Troponin negative x 1. proBNP 5630. Home cardiac medications: Eliquis 5 mg twice daily, atorvastatin 40 mg daily, Lasix 40 mg twice daily, Lopressor 25 mg twice daily, Entresto 24-26 mg twice daily, Aldactone 25 mg daily, patient also on Jardiance 10 mg daily. Echocardiogram performed 04/12/2023 revealed EF of 25 to 30%, dilated right ventricle with mild pulmonary hypertension, mild aortic and tricuspid regurgitation. Review Of Systems: At the time of my exam: CONSTITUTIONAL: Denies fever or chills. HEENT: Denies blurred vision, vision changes, or eye pain. Denies hemoptysis CARDIOVASCULAR: Denies chest pain. + orthopnea. Denies PND. Denies palpitations RESPIRATORY: + shortness of breath. +ADAMS. GASTROINTESTINAL: Denies abdominal pain. Denies nausea or vomiting. HEMATOLOGIC: Denies bleeding disorders. GENITOURINARY: Denies any blood in urine. SKIN: Denies pruitis. Denies rash. Physical examination: Gen: This is a 62-year-old male in no acute distress VS: reviewed HEENT: Head is atraumatic, normocephalic. Pupils equal, round. Sclerae is anicteric. NECK: Supple. No JVD. LUNGS: Clear to auscultation. No wheezes or rhonchi. No intercostal retra ctions. HEART: Regular rate and rhythm. No murmur. ABDOMEN: Soft No tenderness. EXTREMITIES: Minimal lower extremity edema. No calf tenderness. NEUROLOGICAL: Patient is awake, alert and oriented x3. Assessment: Acute on chronic heart failure with reduced ejection fraction Nonischemic cardiomyopathy with EF of 15% in May 2021 recovered to 25 to 30% 03/2023 Moderate CAD by left heart cath performed May 27, 2022. Mid RCA 60%, IFR 1. No significant disease of the left system. Persistent atrial fibrillation COPD Hyperlipidemia Plan: Resume patient's home cardiac medications Continue IV Lasix 40 mg every 8 hours Monitor AMARA, daily weights, electrolytes and renal function Obtain limited 2-D echocardiogram and Doppler study At the time of discharge, patient will follow-up with Dr. Ramirez as previously planned. Further recommendations to follow based upon clinical course Thank you kindly for this consultation. Nurse practitioner note has been reviewed, I agree with documented findings and plan of care. Patient was seen and examined. Past Medical History Past Medical History: Atrial Fibrillation, Heart Failure, COPD, Hyperlipidemia Additional Past Medical History / Comment(s): high cholestrol History of Any Multi-Drug Resistant Organisms: None Reported Past Surgical History: Appendectomy, Hernia Repair Past Anesthesia/Blood Transfusion Reactions: No Reported Reaction Past Psychological History: Depression Additional Psychological History / Comment(s): Patient is homeless. Smoking Status: Never smoker Past Alcohol Use History: None Reported Past Drug Use History: Marijuana - Past Family History Mother Family Medical History: Hyperlipidemia Medications and Allergies Home Medications Medication Instructions Recorded Confirmed Type Loperamide [Imodium] 2 mg PO BID PRN 04/11/23 07/19/23 History Apixaban [Eliquis] 5 mg PO BID #60 tab 04/15/23 07/19/23 Rx Atorvastatin [Lipitor] 40 mg PO DAILY #30 tab 04/15/23 07/19/23 Rx Empagliflozin [Jardiance] 10 mg PO DAILY #30 tab 04/15/23 07/19/23 Rx Pantoprazole [Protonix] 40 mg PO AC-BRKFST #30 tab 04/15/23 07/19/23 Rx Spironolactone [Aldactone] 25 mg PO DAILY #30 tab 04/15/23 07/19/23 Rx Albuterol Inhaler [Ventolin Hfa 1 puff INHALATION RT-QID PRN 06/11/23 07/19/23 History Inhaler] Metoprolol Tartrate [Lopressor] 25 mg PO BID 06/11/23 07/19/23 History Sacubitril/Valsartan [Entresto 24 1 tab PO BID 06/11/23 07/19/23 History mg-26 mg Tablet] Furosemide [Lasix] 40 mg PO BID@0900,1600 #90 tab 06/16/23 07/19/23 Rx Allergies Allergy/AdvReac Type Severity Reaction Status Date / Time No Known Allergies Allergy Verified 07/19/23 14:01 Physical Exam Vitals: Vital Signs Temp Pulse Resp BP Pulse Ox 07/21/23 02:05 97.7 F 61 134/80 95 07/20/23 19:50 98.3 F 91 16 111/74 95 07/20/23 15:00 97.9 F 86 16 128/90 96 07/20/23 14:00 20 07/20/23 08:57 20 Intake and Output 07/20/23 07/21/23 07/21/23 22:59 06:59 14:59 Other: Voiding Method Toilet # Voids 7 Weight 104.6 kg Results 07/21/23 05:26 07/21/23 05:26 Current Medications Generic Name Dose Route Start Last Admin Trade Name Freq PRN Reason Stop Dose Admin Acetaminophen 650 mg 07/20/23 02:48 03/07/24 06:38 Acetaminophen Tab 325 Mg Tab PO 650 mg Q4HR PRN Administration Fever and/ or Pain Albuterol Sulfate 2.5 mg 07/20/23 03:21 Albuterol Nebulized 2.5 Mg/3 Ml INHALATION RT-QID PRN Shortness Of Breath Or Wheezin Apixaban 5 mg 07/20/23 09:00 07/20/23 20:33 Apixaban 5 Mg Tab PO 5 mg BID CATE Administration Protocol Aspirin 81 mg 07/21/23 09:00 Aspirin 81 Mg PO DAILY CATE Atorvastatin Calcium 40 mg 07/20/23 09:00 07/20/23 08:57 Atorvastatin 40 Mg Tab PO 40 mg DAILY CATE Administration Dextrose/Water 25 ml 07/20/23 03:22 Dextrose 50% Syringe 50 Ml IVP PER PROTOCOL PRN Hypoglycemia Protocol Dextrose/Water 50 ml 07/20/23 03:22 Dextrose 50% Syringe 50 Ml IVP PER PROTOCOL PRN Hypoglycemia Protocol Furosemide 40 mg 07/20/23 00:00 07/20/23 23:59 Furosemide 10 Mg/Ml 4 Ml Vial IV 40 mg Q8HR CATE Administration Insulin Aspart 0 unit 07/20/23 07:30 07/21/23 06:13 Insulin Aspart (Novolog) 100 Unit/Ml Vial SQ Not Given ACHS [facility] Protocol Metoprolol Tartrate 25 mg 07/20/23 09:00 07/20/23 20:33 Metoprolol Tartrate 25 Mg Tab PO 25 mg BID CATE Administration Pantoprazole Sodium 40 mg 07/20/23 07:30 07/21/23 06:29 Pantoprazole 40 Mg Tablet PO 40 mg AC-BRKFST CATE Administration Sacubitril/Valsartan 1 each 07/20/23 09:00 07/20/23 20:33 Sacubitril/Valsartan 24 Mg-26 Mg Tablet PO 1 each BID CATE Administration Spironolactone 25 mg 07/20/23 09:00 07/20/23 08:57 Spironolactone 25 Mg Tab PO 25 mg DAILY CATE Administration Intake and Output 07/20/23 07/21/23 07/21/23 22:59 06:59 14:59 Other: Voiding Method Toilet # Voids 7 Weight 104.6 kg 07/19/23 12:25 07/19/23 12:25
[2023-07-21 12:31] LABS: Glucose,Whole Blood 100 mg/dL (70-110)
--- NOTE | 2023-07-21 13:54 | P.PN ---
Subjective Progress Note Date: 07/21/23 Hospital course: Patient is a very pleasant 62-year-old male with a past medical history of nonischemic cardiomyopathy, chronic systolic heart failure with previously known EF of 25-30%, pulmonary hypertension, chronic atrial fibrillation on anticoagulation with Eliquis, previously known left bundle branch block, hypertension, and hyperlipidemia. He presented to the emergency department with a chief complaint of shortness of breath. Patient underwent full evaluation in the emergency department. Vital signs upon arrival show blood pressure 141/91, heart rate 88, respiratory rate 18, temp 97.7 F, and SpO2 of 98% on room air. EKG completed showing atrial fibrillation with a controlled ventricular rate of 89 bpm with a left bundle branch block, left bundle branch block is previously known when compared to previous EKGs. Chest x-ray completed showing mild to moderate cardiomegaly with interstitial densities superimposed on COPD correlate for pulmonary vascular congestion with trace right pleural effusion. Labs completed and reviewed. CBC showing stable normocytic anemia with hemoglobin of 12.3. BMP showing mild hyperchloremia with chloride of 111 and prerenal azotemia with BUN of 22. Blood glucose 106. Magnesium 1.9. Liver profile unremarkable. Troponin was negative at less than 0.012 and proBNP was 5630. Venous Doppler left lower extremity was completed negative for DVT showing a moderate-sized 6 cm Zuniga's cyst with triphasic venous waveforms seen in the setting of elevated cardiac pressures. Physical exam: Vital signs reviewed and stable. General: Nontoxic, no distress and appears stated age. Derm: Skin warm and dry, normal coloration for ethnicity. Head: Atraumatic, normocephalic and symmetric. Eyes: EOMs intact, no lid lag, and anicteric sclera Mouth: no lip lesions, mucus membranes moist Cardiovascular: Irregularly irregular, systolic murmur, positive posterior tibi al pulses bilaterally, and cap refill < 2 seconds. Lungs: Respirations even, regular, and unlabored on room air. Lungs diminished, no rhonchi, no rales, no wheezing, and no accessory muscle usage. Abdominal: soft, nontender to palpation, no guarding, no appreciable organomegaly Ext: ROM intact. No gross muscle atrophy, scant lower extremity edema, no contractures Neuro: Speech clear, face symmetrical and CN II-XII grossly intact with no noted focal neuro deficits Psych: Alert and oriented to person, place, time, and situation. Appropriate and pleasant affect. Assessment and Plan of Care: HFrEF exacerbation with EF of 25 to 30% Nonischemic cardiomyopathy Pulmonary hypertension Chronic atrial fibrillation with left bundle branch block Hypertension Hyperlipidemia -Cardiology following, recommending an additional 24 hours of IV Lasix -Telemetry monitoring -ProBNP 5630 and troponin negative at less than 0.012. -Continue Daily weights and close monitoring of I's and O's -Cardiac diet with fluid restriction of 2 L daily -Continue Lasix 40 mg IVP every 8 hours -Continue cardiac medication regimen with Eliquis 5 mg twice daily, aspirin 81 mg daily, atorvastatin 40 mg daily, metoprolol 25 mg twice daily, Entresto 24-26 mg tablets twice daily, and Aldactone 25 mg daily. -Continued close monitoring of electrolytes while diuresing Hypokalemia Potassium 3.4 orders placed for K-Dur 40 mill equivalents p.o. x 1 dose. Data and imaging reviewed: -Morning labs reviewed. CBC showing stable normocytic anemia with hemoglobin of 12.9. BMP showing hypokalemia with potassium 3.4.. Magnesium normal findings at 2.0. Liver profile unremarkable. -Vital signs reviewed. Blood pressure 127/90, heart rate 74, respiratory rate 16, temp 97.6 F, and SpO2 of 98% on room air. -Venous Doppler left lower extremity was completed negative for DVT showing a moderate-sized 6 cm Zuniga's cyst with triphasic venous waveforms seen in the setting of elevated cardiac pressures. . CODE STATUS: Full code DVT prophylaxis: Eliquis Anticipated discharge date: Likely tomorrow morning Anticipated discharge place: Home Patient was seen independently by Nurse Pracitioner. This document was prepared using [employer] dictation software. Please allow for errors in [employer], while rare they do occur. I reviewed the documentation as provided by the ALISA above, who is the original author of this note. I agree with the documented assessment and plan, with the following changes: none Objective - Vital Signs Vital signs: Vital Signs Temp 97.7 F 07/21/23 02:05 Pulse 61 07/21/23 02:05 Resp 16 07/20/23 19:50 BP 134/80 07/21/23 02:05 Pulse Ox 95 07/21/23 02:05 FiO2 Intake & Output 07/20/23 07/21/23 07/21/23 18:59 06:59 18:59 Intake Total 436 Balance 436 Weight 107.7 kg 104.6 kg Intake: Oral 436 Other: Voiding Method Toilet Toilet # Voids 7 - Labs CBC & Chem 7: 07/21/23 05:26 07/21/23 05:26 Labs: Abnormal Lab Results - Last 24 Hours (Table) 07/20/23 Range/Units 20:31 POC Glucose (mg/dL) 116 H (70-110) mg/dL
[2023-07-21] MEDS: POTASSIUM CHLORIDE ER 20 MEQ TAB.ER PO STA (14:15)
[2023-07-21 17:46] LABS: Glucose,Whole Blood 102 mg/dL (70-110)
[2023-07-21 20:22] LABS: Glucose,Whole Blood 106 mg/dL (70-110)
[2023-07-22 06:14] LABS: Glucose,Whole Blood 100 mg/dL (70-110)
[2023-07-22 09:33] VITALS: BP 119/57; PULSE 74; TEMP 97.7
--- NOTE | 2023-07-22 10:27 | P.DS ---
Providers Date of admission: 07/19/23 18:16 Expected date of discharge: 07/22/23 Attending physician: Sarah Zhang MD Consults: 07/20/23 16:08 Consult Physician Routine Consulting Provider: Monty Franco Consult Reason/Comments: HFrEF exacerbation, pt reports not yet established w/ fitness teacher Do you want consulting provider notified?: Yes Primary care physician: Stated None Hospital Course: Discharge Diagnosis: HFrEF exacerbation with EF of 25 to 30% Nonischemic cardiomyopathy Pulmonary hypertension Chronic atrial fibrillation with left bundle branch block Hypertension Hyperlipidemia Hypokalemia, replaced. Hospital course: Patient is a very pleasant 62-year-old male with a past medical history of nonischemic cardiomyopathy, chronic systolic heart failure with previously known EF of 25-30%, pulmonary hypertension, chronic atrial fibrillation on anticoagulation with Eliquis, previously known left bundle branch block, hypertension, and hyperlipidemia. He presented to the emergency department with a chief complaint of shortness of breath. Patient underwent full evaluation in the emergency department. Vital signs upon arrival show blood pressure 141/91, heart rate 88, respiratory rate 18, temp 97.7 F, and SpO2 of 98% on room air. EKG completed showing atrial fibrillation with a controlled ventricular rate of 89 bpm with a left bundle branch block, left bundle branch block is previously known when compared to previous EKGs. Chest x-ray completed showing mild to moderate cardiomegaly with interstitial densities superimposed on COPD correlate for pulmonary vascular congestion with trace right pleural effusion. Labs completed and reviewed. CBC showing stable normocytic anemia with hemoglobin of 12.3. BMP showing mild hyperchloremia with chloride of 111 and prerenal azotemia with BUN of 22. Blood glucose 106. Magnesium 1.9. Liver profile unremarkable. Troponin was negative at less than 0.012 and proBNP was 5630. Venous Doppler left lower extremity was completed negative for DVT showing a moderate-sized 6 cm Zuniga's cyst with triphasic venous waveforms seen in the setting of elevated cardiac pressures. Patient received successful IV diuresis and cleared from cardiac perspective for discharge at this time. Patient is medically stable for discharge at this time. Had long discussion with patient about importance of following up outpatient for an establishing care with a PCP as well as following up outpatient with fitness teacher as scheduled. No new medication changes were made. Patient to continue cardiac medication regimen with Eliquis 5 mg twice daily, aspirin 81 mg daily, atorvastatin 40 mg daily, metoprolol 25 mg twice daily, Entresto 24-26 mg tablets twice daily, and Aldactone 25 mg daily. Physical exam: Vital signs reviewed and stable. General: Nontoxic, no distress and appears stated age. Derm: Skin warm and dry, normal coloration for ethnicity. Head: Atraumatic, normocephalic and symmetric. Eyes: EOMs intact, no lid lag, and anicteric sclera Mouth: no lip lesions, mucus membranes moist Cardiovascular: Irregularly irregular, systolic murmur, positive posterior tibial pulses bilaterally, and cap refill < 2 seconds. Lungs: Respirations even, regular, and unlabored on room air. Lungs diminished, no rhonchi, no rales, no wheezing, and no accessory muscle usage. Abdominal: soft, nontender to palpation, no guarding, no appreciable organomegaly Ext: ROM intact. No gross muscle atrophy, scant lower extremity edema, no contractures Neuro: Speech clear, face symmetrical and CN II-XII grossly intact with no noted focal neuro deficits Psych: Alert and oriented to person, place, time, and situation. Appropriate and pleasant affect. A total of 35 minutes of time were spent preparing this complex discharge summ Pt was discharged on 07/22/2023 at 10:26 AM. Patient was seen independently by Nurse Practitioner. This document was prepared using [employer] dictation software. Please allow for errors in product designer while rare they do occur. I reviewed the documentation as provided by the ALISA above, who is the original author of this note. I agree with the documented assessment and plan, with the following changes: none Patient Condition at Discharge: Stable Plan - Discharge Summary New Discharge Prescriptions: Continue Pantoprazole [Protonix] 40 mg PO -BRKFST #30 tab Atorvastatin [Lipitor] 40 mg PO DAILY #30 tab Metoprolol Tartrate [Lopressor] 25 mg PO BID Sacubitril/Valsartan [Entresto 24 mg-26 mg Tablet] 1 tab PO BID Loperamide [Imodium] 2 mg PO BID PRN PRN Reason: Diarrhea Apixaban [Eliquis] 5 mg PO BID #60 tab Spironolactone [Aldactone] 25 mg PO DAILY #30 tab Empagliflozin [Jardiance] 10 mg PO DAILY #30 tab Furosemide [Lasix] 40 mg PO BID@0900,1600 #90 tab Albuterol Inhaler [Ventolin Hfa Inhaler] 1 puff INHALATION RT-QID PRN 30 Days #1 inh PRN Reason: Shortness Of Breath Or Wheezing Discharge Medication List Loperamide [Imodium] 2 mg PO BID PRN 04/11/23 [History] Apixaban [Eliquis] 5 mg PO BID #60 tab 04/15/23 [Rx] Atorvastatin [Lipitor] 40 mg PO DAILY #30 tab 04/15/23 [Rx] Empagliflozin [Jardiance] 10 mg PO DAILY #30 tab 04/15/23 [Rx] Pantoprazole [Protonix] 40 mg PO AC-BRKFST #30 tab 04/15/23 [Rx] Spironolactone [Aldactone] 25 mg PO DAILY #30 tab 04/15/23 [Rx] Metoprolol Tartrate [Lopressor] 25 mg PO BID 06/11/23 [History] Sacubitril/Valsartan [Entresto 24 mg-26 mg Tablet] 1 tab PO BID 06/11/23 [History] Furosemide [Lasix] 40 mg PO BID@0900,1600 #90 tab 06/16/23 [Rx] Albuterol Inhaler [Ventolin Hfa Inhaler] 1 puff INHALATION RT-QID PRN 30 Days #1 inh 07/22/23 [Rx] Follow up Appointment(s)/Referral(s): Magdy Ramirez MD [Medical Doctor] - 08/04/23 1:15 pm Corbin Yarbrough MD [REFERRING] - 1-2 Days Patient Instructions/Handouts: Heart Failure (ER), Heart Failure (DC), Dyspnea (ED) Activity/Diet/Wound Care/Special Instructions: Activity: As tolerated. Take breaks as needed. Diet: Heart healthy and carb consistent diet. Avoid salts, or foods with hidden salts such as canned or boxed foods and frozen dinners. Extra salt makes your heart work harder and traps the fluid in your body for longer. Special Instructions: Weigh yourself every morning after you urinate. If you gain 3 pounds overnight or more than 5 pounds in one week, call your primary physician and fitness teacher for guidance on your medications or they may want to see you in their office. Keep a daily log of your weights and be sure to bring with you at follow up visits with your PCP and fitness teacher. At your follow up with cardiology, it is recommending that you discuss HFMS Zoll Heart Failure monitoring device along with Furoscix (furosemide subcutaneous injection unit) for better management of your heart failure. Take all of your medications as directed, especially your water pills. NEVER skip a dose. And remember to keep all of your doctor's appointments and follow- up as needed. Elevate your legs when you are not up moving around to help with circulation and prevent swelling. Compression stockings are also a great way to improve lower extremity circulation and prevent/improve lower extremity edema. Call your primary care provider and fitness teacher if you notice any extra swelling in your legs, ankles, feet or abdomen, if you have a new dry cough, if your shortness of breath worsens with activity or at rest, or if you feel more fatigued. Thank you for allowing us to participate in your care, it was truly a pleasure having you for our patient!!! Discharge/Stand Alone Forms: [facility], Who Do I Call?, [facility] Discharge Disposition: HOME SELF-CARE
--- NOTE | 2023-07-22 10:38 | P.PN ---
Subjective Progress Note Date: 07/22/23 Reason for Consult (text): HFrEF exacerbation, patient not established with cardiology History of present illness: History of present illness: This is a 62-year-old male with past medical history of atrial fibrillation on Eliquis, mild nonobstructive CAD, nonischemic cardiomyopathy with EF 15 to 20% in 2021 at [facility], hyperlipidemia, tobacco use and dependence quit 1 year ago. Patient had a recent hospitalization at [facility] on 04/11/[address] was [address] Ramirez at that time for acute systolic heart failure however patient apparently did not follow-up in the office. He had a subsequent hospitalization for CHF exacerbation and pleural effusion status post thoracentesis with removal of 950 mL of dark brown bloody fluid. Cardiology did not see patient during that hospitalization. We have been asked to evaluate the patient for heart failure reduced EF. Patient presented to the emergency center due to shortness of breath, chest pressure and increased lower extremity edema greater in the left than right. Patient has had progressive dyspnea over the past 2 days with dyspnea on exertion, orthopnea. No fever or chills no nausea or vomiting. No cough. Patient currently denies any chest pain. Patient does not recall any discussion regarding pacemaker/AICD. Patient was seen by cardiology during his hospitalization in March 2023 patient has been resumed on his home cardiac medications and started on IV Lasix 40 mg every 8 hours. EKG atrial fibrillation with a left bundle branch block 89 bpm, telemetry atrial fibrillation with controlled rate Chest x-ray: Mild to moderate cardiomegaly with interstitial density superimposed on COPD. Correlate for mild pulmonary vascular congestion. Trace right pleural effusion. Doppler of the left lower extremity negative for DVT. WBC 7.6, hemoglobin 12.3, platelet count 199. INR 1.2. Sodium 143, potassium 3.5, BUN 22 creatinine 0.91. Liver function test are normal. Magnesium 1.9. Troponin negative x 1. proBNP 5630. Home cardiac medications: Eliquis 5 mg twice daily, atorvastatin 40 mg daily, Lasix 40 mg twice daily, Lopressor 25 mg twice daily, Entresto 24-26 mg twice daily, Aldactone 25 mg daily, patient also on Jardiance 10 mg daily. Echocardiogram performed 04/12/2023 revealed EF of 25 to 30%, dilated right ventricle with mild pulmonary hypertension, mild aortic and tricuspid regurgitation. 3/8 Patient is seen today in follow-up. He has been maintained on IV Lasix 40 mg every 8 hours. Blood pressure 119/57, heart rate 74, pulse ox 99% on room air. Weight is down 4 kg. AMARA's do not appear to be accurate. No repeat blood work today but yesterday's was reviewed. Physical examination: Gen: This is a 62-year-old male in no acute distress VS: reviewed HEENT: Head is atraumatic, normocephalic. Pupils equal, round. Sclerae is anicteric. NECK: Supple. No JVD. LUNGS: Clear to auscultation. No wheezes or rhonchi. No intercostal retrac tions. HEART: Regular rate and rhythm. No murmur. ABDOMEN: Soft No tenderness. EXTREMITIES: Minimal lower extremity edema. No calf tenderness. NEUROLOGICAL: Patient is awake, alert and oriented x3. Assessment: Acute on chronic heart failure with reduced ejection fraction Nonischemic cardiomyopathy with EF of 15% in May 2021 recovered to 25 to 30% 03/2023 Moderate CAD by left heart cath performed May 27, 2022. Mid RCA 60%, IFR 1. No significant disease of the left system. Persistent atrial fibrillation COPD Hyperlipidemia Plan: Continue patient's home cardiac medications Transition IV Lasix to oral 40 mg twice daily Patient is cleared from cardiology for discharge home and may follow-up with Dr. Ramirez in 1 to 2 weeks. Nurse practitioner note has been reviewed, I agree with documented findings and plan of care. Patient was seen and examined. Objective - Vital Signs Vital signs: Vital Signs Temp 97.6 F 07/22/23 01:41 Pulse 88 07/22/23 01:41 Resp 16 07/22/23 01:41 BP 133/83 07/22/23 01:41 Pulse Ox 98 07/22/23 01:41 FiO2 Intake & Output 07/21/23 07/22/23 07/22/23 18:59 06:59 18:59 Intake Total 1844 Balance 1844 Weight 103.8 kg Intake: Oral 184 Other: Voiding Method Toilet Toilet # Voids 1 - Labs CBC & Chem 7: 07/21/23 05:26 07/21/23 05:26 Labs: Abnormal Lab Results - Last 24 Hours (Table) 07/21/23 07/21/23 Range/Units 05:26 05:26 Hgb 12.9 L (13.0-17.0) g/dL MCHC 31.2 L (32.0-37.0) g/dL RDW 15.3 H (11.5-14.5) % Potassium 3.4 L (3.5-5.5) mmol/L Glucose 112 H (70-110) mg/dL
[2023-07-22 13:06] LABS: Glucose,Whole Blood 89 mg/dL (70-110)
[2023-07-22] MEDS ORDERED: FUROSEMIDE 40 MG TAB PO SCH (16:00)
== END 2023-07-22 15:37 | disposition home or self-care (01) | DRG 194 ==
LOC: EC 11:50 → 6NMEDSUR 18:15 → OBSVTOIN 18:16 → 6NMEDSUR 18:35
PROVIDERS: ADMIT Internal Medicine; ATTEND Internal Medicine
DX: I11.0 Hypertensive heart disease with heart failure (principal); I50.23 Acute on chronic systolic (congestive) heart failure; I44.7 Left bundle-branch block, unspecified; I42.8 Other cardiomyopathies; I48.19 Other persistent atrial fibrillation; J96.01 Acute respiratory failure with hypoxia; I27.20 Pulmonary hypertension, unspecified; I08.2 Rheumatic disorders of both aortic and tricuspid valves; I25.10 Atherosclerotic heart disease of native coronary artery without angina pectoris; F32.A Depression, unspecified; E87.6 Hypokalemia; E87.8 Other disorders of electrolyte and fluid balance, not elsewhere classified; D64.9 Anemia, unspecified; E78.5 Hyperlipidemia, unspecified; M71.22 Synovial cyst of popliteal space [Baker], left knee; J44.9 Chronic obstructive pulmonary disease, unspecified; Z79.01 Long term (current) use of anticoagulants; Z79.82 Long term (current) use of aspirin; Z79.84 Long term (current) use of oral hypoglycemic drugs; E11.9 Type 2 diabetes mellitus without complications; Z79.899 Other long term (current) drug therapy; Z87.891 Personal history of nicotine dependence
CPT/HCPCS: 36415; 71046; 80053; 83036; 83605; 83735; 83880; 84484; 85025; 85027; 85610; 85730; 93005; 93306; 96374; 99285

== ENCOUNTER 2023-07-28 19:14 | Observation (INO) | payer OTHER ==
[2023-07-28 20:46] LABS: Basophils # (A) 0.1 k/uL (0-0.2); Basophils % (A) 1 %; Eosinophils % (A) 1 %; HCT 40.7 % (39.0-53.0); HGB 13.2 gm/dL (13.0-17.5); Hypochromasia Slight; Lymphocytes # (A) 1.5 k/uL (1.0-4.8); Lymphocytes % (A) 20 %; MCH 28.3 pg (25.0-35.0); MCHC 32.4 g/dL (31.0-37.0); MCV 87.2 fL (80.0-100.0); Mean Platelet Volume 8.8; Monocytes # (A) 0.5 k/uL (0-1.0); Monocytes % (A) 7 %; Neutrophils # (A) 5.2 k/uL (1.3-7.7); Neutrophils % (A) 70 %; Platelet Count 230 k/uL (150-450); RBC 4.67 m/uL (4.30-5.90); RDW 15.5 % (11.5-15.5); WBC 7.4 k/uL (3.8-10.6)
[2023-07-28 20:58] LABS: INR 1.2 (<1.2); Partial Thromboplastin Time 26.1 sec (22.0-30.0); Prothrombin Time 12.7 sec (10.0-12.5)
[2023-07-28 21:08] LABS: ALT 30 U/L (4-49); AST 42 U/L (17-59); African American GFR (CKD) 80 (>60 ml/min/1.73 sqM); Albumin 4.7 g/dL (3.5-5.0); Alkaline Phosphatase 80 U/L (38-126); Anion Gap 12 mmol/L; Blood Urea Nitrogen 20 mg/dL (9-20); Calcium 9.6 mg/dL (8.4-10.2); Carbon Dioxide 28 mmol/L (22-30); Chloride 102 mmol/L (98-107); Glucose 81 mg/dL (74-99); Lipase 60 U/L (23-300); Magnesium 2.1 mg/dL (1.6-2.3); Non-African American GFR(CKD) 69 (>60 ml/min/1.73 sqM); Potassium 3.4 mmol/L (3.5-5.1); Sodium 142 mmol/L (137-145); Total Bilirubin 1.5 mg/dL (0.2-1.3)
[2023-07-28 21:13] LABS: NT-Pro-B-Type Natriuretic Pept 7450 pg/mL
[2023-07-28] MEDS: ACETAMINOPHEN TAB 500 MG TAB PO STA (21:22)
--- NOTE | 2023-07-28 23:38 | ED ---
Chest Pain HPI - General Chief Complaint: Chest Pain Stated Complaint: Chest/Abd pain Time Seen by Provider: 07/28/23 20:16 Source: patient, RN notes reviewed Mode of arrival: ambulatory Limitations: no limitations - History of Present Illness Initial Comments: 62-year-old male with a history of heart disease and CHF history of pleural effusion who presents with complaints of chest pain shortness of breath and palpitations. He was previously admitted from the fifth through the eighth of this month. He denies any fevers chills sweats he says his peripheral edema has gotten better than previously. No other current complaints other than the intermittent chest pains. MD Complaint: chest pain, other - Related Data Home Medications Medication Instructions Recorded Confirmed Loperamide [Imodium] 2 mg PO BID PRN 04/11/23 07/19/23 Metoprolol Tartrate [Lopressor] 25 mg PO BID 06/11/23 07/19/23 Sacubitril/Valsartan [Entresto 24 1 tab PO BID 06/11/23 07/19/23 mg-26 mg Tablet] Previous Rx's Medication Instructions Recorded Apixaban [Eliquis] 5 mg PO BID #60 tab 04/15/23 Atorvastatin [Lipitor] 40 mg PO DAILY #30 tab 04/15/23 Empagliflozin [Jardiance] 10 mg PO DAILY #30 tab 04/15/23 Pantoprazole [Protonix] 40 mg PO AC-BRKFST #30 tab 04/15/23 Spironolactone [Aldactone] 25 mg PO DAILY #30 tab 04/15/23 Furosemide [Lasix] 40 mg PO BID@0900,1600 #90 tab 06/16/23 Albuterol Inhaler [Ventolin Hfa 1 puff INHALATION RT-QID PRN 30 07/22/23 Inhaler] Days #1 inh Allergies Allergy/AdvReac Type Severity Reaction Status Date / Time No Known Allergies Allergy Verified 07/28/23 19:31 Review of Systems ROS Statement: Those systems with pertinent positive or pertinent negative responses have been documented in the HPI. ROS Other: All systems not noted in ROS Statement are negative. Past Medical History Past Medical History: Atrial Fibrillation, Heart Failure, COPD, Hyperlipidemia Additional Past Medical History / Comment(s): high cholestrol History of Any Multi-Drug Resistant Organisms: None Reported Past Surgical History: Appendectomy, Hernia Repair Past Anesthesia/Blood Transfusion Reactions: No Reported Reaction Past Psychological History: Depression Smoking Status: Never smoker Past Alcohol Use History: None Reported Past Drug Use History: Marijuana - Past Family History Mother Family Medical History: Hyperlipidemia General Exam - General Exam Comments Initial Comments: This is a well-developed well-nourished awake alert oriented x 4 male Limitations: no limitations General appearance: alert, in no apparent distress Head exam: Present: atraumatic, normocephalic, normal inspection Eye exam: Present: normal appearance, PERRL, EOMI. Absent: scleral icterus, conjunctival injection, periorbital swelling ENT exam: Present: normal exam, mucous membranes moist Neck exam: Present: normal inspection, full ROM, other (No stridor JVD or bruits). Absent: tenderness, meningismus, lymphadenopathy Respiratory exam: Present: decreased breath sounds. Absent: respiratory distress, wheezes, rales, rhonchi, stridor Cardiovascular Exam: Present: regular rate, normal rhythm, normal heart sounds. Absent: systolic murmur, diastolic murmur, rubs, gallop, clicks GI/Abdominal exam: Present: soft, normal bowel sounds. Absent: distended, tenderness, guarding, rebound, rigid Extremities exam: Present: normal inspection, full ROM, normal capillary refill. Absent: tenderness, pedal edema, joint swelling, calf tenderness Back exam: Present: normal inspection Neurological exam: Present: alert, oriented X3, CN II-XII intact Psychiatric exam: Present: normal affect, normal mood Skin exam: Present: warm, dry, intact, normal color. Absent: rash Course Vital Signs 07/28/23 07/28/23 07/28/23 19:27 20:25 20:31 Temperature 98.3 F Pulse Rate 84 79 Pulse Rate [ 78 Bilateral Sitting Radial] Respiratory 20 18 Rate Blood Pressure 141/91 125/98 O2 Sat by Pulse 98 97 Oximetry 07/28/23 07/28/23 21:23 22:41 Temperature Pulse Rate 79 79 Pulse Rate [ Bilateral Sitting Radial] Respiratory 18 18 Rate Blood Pressure 125/90 134/100 O2 Sat by Pulse 94 L 96 Oximetry Chest Pain MDM - MDM I did discuss findings with the patient also with Dr. Giang who did come and see the patient in the emergency department the patient presents with symptoms consistent with CHF and chest pain he will be admitted for diuresis and further evaluation. Was pt. sent in by a medical professional or institution (, [facility], [employer]ER, urgent care, hospital, or shelter...) When possible be specific @ -No Did you speak to anyone other than the patient for history (EMS, parent, family, police, friend...)? What history was obtained from this source @ -No Did you review nursing and triage notes (agree or disagree)? Why? @ -I reviewed and agree with nursing and triage notes Were old charts reviewed (outside hosp., previous admission, EMS record, old EKG, old radiological studies, urgent care reports/EKG's, shelter records)? Report findings @ -Previous admission old charts were reviewed Differential Diagnosis (chest pain, altered mental status, abdominal pain women, abdominal pain men, vaginal bleeding, weakness, fever, dyspnea, syncope, headache, dizziness, GI bleed, back pain, seizure, CVA, palpatations, mental health, musculoskeletal)? @ -Chest pain, dyspnea EKG interpreted by me (3pts min.). @ -Interpreted by me evidence of atrial fibrillation rate 86 QRS duration 172 QT/QTc 314/461 borderline right axis deviation left bundle branch block I did compare this with an EKG dated 07/19/2023 showing similar configuration. A repeat EKG was done showing A-fib with a rate is 76 QRS duration 172 QT/QTc 444/474 left bundle branch block pattern also interpreted by me X-rays interpreted by me (1pt min.). @ -Chest x-ray interpreted by me increased pulmonary vascular markings no definitive evidence of pleural effusion CT interpreted by me (1pt min.). @ -None done U/S interpreted by me (1pt. min.). @ -None done What testing was considered but not performed or refused? (CT, X-rays, U/S, labs)? Why? @ -None What meds were considered but not given or refused? Why? @ -None Did you discuss the management of the patient with other professionals (professionals i.e. , [facility], LINE CONTROLLER, lab, RT, psych nurse, social worker school, body shop technician, teacher, forestry technical officer, immigration case worker)? Give summary @ -Dr. Giang Was smoking cessation discussed for >3mins.? @ -No Was critical care preformed (if so, how long)? @ -No Were there social determinants of health that impacted care today? How? (Homelessness, low income, unemployed, alcoholism, drug addiction, transportation, low edu. Level, literacy, decrease access to med. care, intermediate, rehab)? @ -No Was there de-escalation of care discussed even if they declined (Discuss DNR or withdrawal of care, Hospice)? DNR status @ -No What co-morbidities impacted this encounter? (DM, HTN, Smoking, COPD, CAD, Cancer, CVA, ARF, Chemo, Hep., AIDS, mental health diagnosis, sleep apnea, morbid obesity)? @ -CHF, COPD, hyperlipidemia, atrial fibrillation Was patient admitted / discharged? Hospital course, mention meds given and route, prescriptions, significant lab abnormalities, going to OR and other pertinent info. @ -Hospital course was admitted for patient evaluation and diuresis. Further evaluation of chest pain Undiagnosed new problem with uncertain prognosis? @ -No Drug Therapy requiring intensive monitoring for toxicity (Heparin, Nitro, Insulin, Cardizem)? @ -No Were any procedures done? @ -No Diagnosis/symptom? @ -Chest pain, CHF Acute, or Chronic, or Acute on Chronic? @ -Acute on chronic Uncomplicated (without systemic symptoms) or Complicated (systemic symptoms)? @ -Complicated Side effects of treatment? @ -No Exacerbation, Progression, or Severe Exacerbation? @ -Exacerbation Poses a threat to life or bodily function? How? (Chest pain, [place], [place], pneumonia, PE, COPD, DKA, ARF, appy, cholecystitis, CVA, Diverticulitis, Homicidal, Suicidal, threat to staff... and all critical care pts) @ -Potential Disposition Clinical Impression: Chest pain, Congestive heart failure Disposition: ADMITTED IP TO THIS [facility] Condition: Fair Referrals: None,Stated [Primary Care Provider] - 1-2 days Decision Date: 07/28/23 Decision Time: 23:00
[2023-07-28] MEDS ORDERED: LOPERAMIDE 2 MG CAP PO PRN (23:49)
[2023-07-29] MEDS: FUROSEMIDE 40 MG TAB PO SCH (00:12)
--- NOTE | 2023-07-29 00:42 | US ---
EXAMINATION TYPE: US gallbladder DATE OF EXAM: 07/28/2023 COMPARISON: NONE CLINICAL INDICATION: Male, 62 years old with history of Epigastric pain, elevated bilirubin; chest pa in and abd pain today TECHNIQUE: Multiple sonographic images of the right upper quadrant are obtained. FINDINGS: Limited due to bowel gas and body habitus EXAM MEASUREMENTS: Liver Length: 18.8 cm Gallbladder Wall: 0.18 cm CBD: 0.26 cm Right Kidney: 10.5 x 5.6 x 5.2 cm COLLATOR HAND NOTES: Pancreas: Obscured by bowel gas Liver: Limited, appears wnl Gallbladder: wnl Evidence for sonographic Hooker's sign: No CBD: wnl Right Kidney: wnl Suboptimal evaluation of the pancreas. IMPRESSION: Suboptimal study. No shadowing mobile gallstones or ultrasound evidence for acute cholecy stitis. Suboptimal evaluation of pancreas otherwise unremarkable exam.
--- NOTE | 2023-07-29 01:07 | P.HPIM ---
History of Present Illness H&P Date: 07/28/23 Patient is a 62-year-old male with a PMH of systolic CHF EF 25 to 30%, A-fib on Eliquis, hypertension, and hyperlipidemia who presents to the emergency room with complaints of epigastric discomfort and shortness of breath. Patient notes the above symptoms have been gradually worsening over the past 2 days. Reports constant epigastric discomfort, gnawing in nature, 7 out of 10 at maximal intensity, with no alleviating or exacerbating features and nonradiating. Reports significant orthopnea during this time without lower extremity edema. Also reports experiencing persistent nausea with vomiting and diarrhea without bloody or black tarry stools over the past 1 to 2 days. Denies fever, chills, cough, lower extremity pain. Patient denies using NSAIDs. Chest x-ray in the emergency room as reviewed with the ED provider revealed findings of fluid overload with EKG showing A-fib with a left bundle branch block at 86 bpm as reviewed by me. Gallbladder ultrasound was also unremarkable. Laboratory evaluation was remarkable for troponin less than 0.012, proBNP 7450, and lipase 60 with total bilirubin 1.5. ED documentation reviewed and case discussed with ED provider. Review of systems: Pertinent positives and negatives as discussed in HPI, a complete review of systems was performed and all other systems are negative. Physical examination: Vital signs reviewed General: non toxic, no distress, appears at stated age, normal weight Derm: no unusual rashes/lesions, warm Head: atraumatic, normocephalic, symmetric Eyes: EOMI, no lid lag, anicteric sclera, pupils equal round reactive to light ENT: Nose and ears atraumatic Neck: No cervical lymphadenopathy, trachea midline, supple Mouth: no lip lesion, mucus membranes moist Cardiovascular: S1S2 reg, no murmur, positive dorsalis pedis pulse bilateral, no edema Lungs: Bilateral rales without rhonchi or wheezing, no accessory muscle use Abdominal: soft, epigastric tenderness to palpation, no guarding Ext: muscle strength 5 out of 5 in all 4 extremities grossly, no gross muscle atrophy, no contractures, Neuro: CN II-XI grossly intact, no gross focal neuro deficits Psych: Alert, oriented, appropriate affect Assessment: Acute systolic CHF exacerbation Epigastric discomfort, concerning for PUD Chronic conditions: A-fib, hypertension, hyperlipidemia Imaging: Chest x-ray in the emergency room as reviewed with the ED provider revealed findings of fluid overload with EKG showing A-fib with a left bundle branch block at 86 bpm as reviewed by me. Gallbladder ultrasound was also unremarkable. Data Review: Laboratory evaluation was remarkable for troponin less than 0.012, proBNP 7450, and lipase 60 with total bilirubin 1.5. Plan: Continue with Lasix 40 mg IV every 12 hourly Cardiology consult Cardiac monitoring Intake and output Daily weights Trend troponin Consult GI Continue with home Protonix DVT prophylaxis: Eliquis The patient is admitted with an anticipated greater than 2 midnight stay for evaluation of CHF exacerbation CODE STATUS: Full Code Discussed with: Patient Anticipated discharge place: Home Past Medical History Past Medical History: Atrial Fibrillation, Heart Failure, COPD, Hyperlipidemia Additional Past Medical History / Comment(s): high cholestrol History of Any Multi-Drug Resistant Organisms: None Reported Past Surgical History: Appendectomy, Hernia Repair Past Anesthesia/Blood Transfusion Reactions: No Reported Reaction Past Psychological History: Depression Smoking Status: Never smoker Past Alcohol Use History: None Reported Past Drug Use History: Marijuana - Past Family History Mother Family Medical History: Hyperlipidemia Medications and Allergies Home Medications Medication Instructions Recorded Confirmed Type Loperamide [Imodium] 2 mg PO BID PRN 04/11/23 07/19/23 History Apixaban [Eliquis] 5 mg PO BID #60 tab 04/15/23 07/19/23 Rx Atorvastatin [Lipitor] 40 mg PO DAILY #30 tab 04/15/23 07/19/23 Rx Empagliflozin [Jardiance] 10 mg PO DAILY #30 tab 04/15/23 07/19/23 Rx Pantoprazole [Protonix] 40 mg PO AC-BRKFST #30 tab 04/15/23 07/19/23 Rx Spironolactone [Aldactone] 25 mg PO DAILY #30 tab 04/15/23 07/19/23 Rx Metoprolol Tartrate [Lopressor] 25 mg PO BID 06/11/23 07/19/23 History Sacubitril/Valsartan [Entresto 24 1 tab PO BID 06/11/23 07/19/23 History mg-26 mg Tablet] Furosemide [Lasix] 40 mg PO BID@0900,1600 #90 tab 06/16/23 07/19/23 Rx Albuterol Inhaler [Ventolin Hfa 1 puff INHALATION RT-QID PRN 30 07/22/23 Rx Inhaler] Days #1 inh Allergies Allergy/AdvReac Type Severity Reaction Status Date / Time No Known Allergies Allergy Verified 07/28/23 19:31 Physical Exam Vitals: Vital Signs Temp Pulse Pulse Resp BP Pulse Ox 07/29/23 00:13 75 18 122/88 97 07/28/23 22:41 79 18 134/100 96 07/28/23 21:23 79 18 125/90 94 L 07/28/23 20:31 78 07/28/23 20:25 79 18 125/98 97 07/28/23 19:27 98.3 F 84 20 141/91 98 Intake and Output 07/28/23 07/28/23 07/29/23 14:59 22:59 06:59 Other: Weight 104.326 kg Results CBC & Chem 7: 07/28/23 20:34 07/28/23 20:34 Labs: Abnormal Lab Results - Last 24 Hours (Table) 07/28/23 07/28/23 Range/Units 20:34 20:34 PT 12.7 H (10.0-12.5) sec INR 1.2 H (<1.2) Potassium 3.4 L (3.5-5.1) mmol/L Total Bilirubin 1.5 H (0.2-1.3) mg/dL
--- NOTE | 2023-07-29 01:25 | XR ---
EXAMINATION TYPE: XR chest 2V DATE OF EXAM: 07/28/2023 COMPARISON: Prior chest x-ray 9 days ago. HISTORY: Left-sided chest pain into arm. TECHNIQUE: Frontal and lateral views of the chest are obtained. FINDINGS: There is no suspicious new focal air space opacity, pleural effusion, or pneumothorax seen . Cardiomegaly is redemonstrated. Bridging osteophytes in the thoracic spine are noted. IMPRESSION: Cardiomegaly without acute pulmonary process.
[2023-07-29] MEDS ORDERED: PANTOPRAZOLE 40 MG TABLET PO SCH (07:30)
[2023-07-29 07:48] LABS: African American GFR (CKD) >90 (>60 ml/min/1.73 sqM); Anion Gap 12 mmol/L; Blood Urea Nitrogen 21 mg/dL (9-20); Calcium 8.9 mg/dL (8.4-10.2); Carbon Dioxide 23 mmol/L (22-30); Chloride 105 mmol/L (98-107); Glucose 89 mg/dL (74-99); Non-African American GFR(CKD) >90 (>60 ml/min/1.73 sqM); Potassium 3.1 mmol/L (3.5-5.1); Sodium 140 mmol/L (137-145)
[2023-07-29] MEDS ORDERED: DAPAGLIFLOZIN PROPANEDIOL 5 MG TABLET PO SCH (09:00)
[2023-07-29] MEDS: FUROSEMIDE 10 MG/ML 4 ML VIAL IV SCH (09:47)
[2023-07-29] MEDS: POTASSIUM CHLORIDE ER 20 MEQ TAB.ER PO STA (09:47)
[2023-07-29] MEDS: PANTOPRAZOLE 40 MG/10 ML VIAL IVP SCH (09:47)
[2023-07-29] MEDS: METOPROLOL TARTRATE 25 MG TAB PO SCH (09:47)
[2023-07-29] MEDS: SPIRONOLACTONE 25 MG TAB PO SCH (09:47)
[2023-07-29] MEDS: ATORVASTATIN 40 MG TAB PO SCH (09:47)
[2023-07-29] MEDS: APIXABAN 5 MG TAB PO SCH (09:47)
[2023-07-29] MEDS: DAPAGLIFLOZIN PROPANEDIOL 10 MG TABLET PO SCH (09:47)
[2023-07-29] MEDS: SACUBITRIL/VALSARTAN 24 MG-26 MG TABLET PO SCH (10:30)
--- NOTE | 2023-07-29 11:07 | P.CRDCN ---
History of Present Illness History of present illness: HISTORY OF PRESENT ILLNESS: This is a 62-year-old male with a past medical history significant for atrial fibrillation, nonobstructive CAD, nonischemic cardiomyopathy, congestive heart f ailure, hyperlipidemia, and former nicotine dependence. Patient follows in the office with Dr. Ramirez. We have been asked to see the patient in consultation for congestive heart failure. Patient examined at the bedside in the emergency room. Patient presented to the hospital with a chief complaint of shortness of breath. He states he has been feeling short of breath for the past few days. He states he is short of breath with exertion and also at rest. He states he is unable to lay flat due to dyspnea. He also reports having some chest pain in the middle of his chest that radiates into his left arm. He has not prescribed any diuretics on an outpatient basis besides Aldactone. He states he has been compliant with all of his medications. He reports following a low-sodium diet. He states that he is supposed to follow-up in the office with Dr. Ramirez and there has been some discussion with having an AICD implantation performed although this has not been scheduled. DIAGNOSTICS: - EKG reveals atrial fibrillation with controlled ventricular rate. Left bundle branch block.. - Chest xray cardiomegaly without acute pulmonary process. - Laboratory data: WBC 7.4. Hemoglobin 13.2. Platelet count 230. Sodium 140. Potassium 3.1. BUN 21. Creatinine 0.89. Magnesium 2.0. proBNP 7450. Troponin negative x 2 - Current home cardiac medications include Eliquis 5 mg twice a day, Lipitor 40 mg daily, Jardiance 10 mg daily, metoprolol tartrate 25 mg twice a day, Entresto 24-26 mg twice a day, and Aldactone 25 mg daily. - Most recent echocardiogram obtained in March 2023 reveals EF 25 to 30%, mild pulmonary hypertension, severe right atrial dilation, severe left atrial dilation, trace MR, mild TR, mild AR. - Cardiac catheterization history: May 2022 revealing mid RCA 60% with nonischemic FFR. REVIEW OF SYSTEMS: At the time of my exam: CONSTITUTIONAL: Denies fever or chills. HEENT: Denies blurred vision, vision changes, or eye pain. Denies hemoptysis CARDIOVASCULAR: Denies chest pain. Denies orthopnea. Reports PND. Reports palpitations RESPIRATORY: Reports shortness of breath. GASTROINTESTINAL: Denies abdominal pain. Denies nausea or vomiting. HEMATOLOGIC: Denies bleeding disorders. GENITOURINARY: Denies any blood in urine. SKIN: Denies pruitis. Denies rash. PHYSICAL EXAM: VITAL SIGNS: Reviewed. GENERAL: Well-developed in no acute distress. HEENT: Head is normocephalic. Pupils are equal, round. Sclerae anicteric. Mucous membranes of the mouth are moist. Neck supple. Positive JVD LUNGS: Respirations even and unlabored. Lungs diminished with bibasilar crackles HEART: Irregular rate and rhythm. S1 and S2 heard. ABDOMEN: Soft. Nondistended. Nontender. EXTREMITIES: Normal range of motion. No clubbing or cyanosis. Peripheral pulses intact. 1-2+ bilateral lower extremity edema NEUROLOGIC: Awake and alert. Oriented x 3. ASSESSMENT: Shortness of breath Acute on chronic heart failure with reduced EF Persistent atrial fibrillation Nonobstructive coronary artery disease with 60% mid RCA lesion Nonischemic cardiomyopathy, EF 25 to 30% Hyperlipidemia COPD Former nicotine dependence History of pleural effusion requiring thoracentesis PLAN: No need to repeat echocardiogram as this was performed in March 2023 Resume home cardiac medications Add Farxiga 10 mg daily Continue IV Lasix 40 mg every 12 hours Daily weights, accurate intake and output, and monitoring of kidney function Patient to follow-up postdischarge with Dr. Ramirez Patient states discussion has been held regarding AICD implantation with his primary environmental science instructor. This will further be discussed and can be scheduled on an outpatient basis Patient will need to be discharged home on oral Lasix (patient previously only on Aldact[place]) Further recommendations pending patient course Nurse practitioner note has been reviewed by physician. Signing provider agrees with the documented findings, assessment, and plan of care documented by BIN WORKER as a scribe. Past Medical History Past Medical History: Atrial Fibrillation, Heart Failure, COPD, Hyperlipidemia Additional Past Medical History / Comment(s): high cholestrol History of Any Multi-Drug Resistant Organisms: None Reported Past Surgical History: Appendectomy, Hernia Repair Past Anesthesia/Blood Transfusion Reactions: No Reported Reaction Past Psychological History: Depression Smoking Status: Never smoker Past Alcohol Use History: None Reported Past Drug Use History: Marijuana - Past Family History Mother Family Medical History: Hyperlipidemia Medications and Allergies Home Medications Medication Instructions Recorded Confirmed Type Loperamide [Imodium] 2 mg PO BID PRN 04/11/23 07/29/23 History Apixaban [Eliquis] 5 mg PO BID #60 tab 04/15/23 07/29/23 Rx Atorvastatin [Lipitor] 40 mg PO DAILY #30 tab 04/15/23 07/29/23 Rx Empagliflozin [Jardiance] 10 mg PO DAILY #30 tab 04/15/23 07/29/23 Rx Pantoprazole [Protonix] 40 mg PO AC-BRKFST #30 tab 04/15/23 07/29/23 Rx Spironolactone [Aldactone] 25 mg PO DAILY #30 tab 04/15/23 07/29/23 Rx Metoprolol Tartrate [Lopressor] 25 mg PO BID 06/11/23 07/29/23 History Sacubitril/Valsartan [Entresto 24 1 tab PO BID 06/11/23 07/29/23 History mg-26 mg Tablet] Albuterol Inhaler [Ventolin Hfa 1 puff INHALATION RT-QID PRN 30 07/22/23 07/29/23 Rx Inhaler] Days #1 inh Allergies Allergy/AdvReac Type Severity Reaction Status Date / Time No Known Allergies Allergy Verified 07/29/23 08:21 Physical Exam Vitals: Vital Signs Temp Pulse Pulse Resp BP Pulse Ox 07/29/23 06:31 98.7 F 79 16 137/107 99 07/29/23 02:01 80 18 112/92 97 07/29/23 00:13 75 18 122/88 97 07/28/23 22:41 79 18 134/100 96 07/28/23 21:23 79 18 125/90 94 L 07/28/23 20:31 78 07/28/23 20:25 79 18 125/98 97 07/28/23 19:27 98.3 F 84 20 141/91 98 Intake and Output 07/28/23 07/29/23 07/29/23 22:59 06:59 14:59 Other: Weight 104.326 kg Results 07/28/23 20:34 07/29/23 07:20 Cardiac Enzymes 07/28/23 07/28/23 Range/Units 20:34 20:34 AST 42 (17-59) U/L Troponin I <0.012 (0.000-0.034) ng/mL Coagulation 07/28/23 Range/Units 20:34 PT 12.7 H (10.0-12.5) sec APTT 26.1 (22.0-30.0) sec CBC 07/28/23 Range/Units 20:34 WBC 7.4 (3.8-10.6) k/uL RBC 4.67 (4.30-5.90) m/uL Hgb 13.2 (13.0-17.5) gm/dL Hct 40.7 (39.0-53.0) % Plt Count 230 (150-450) k/uL Comprehensive Metabolic Panel 07/28/23 07/29/23 Range/Units 20:34 07:20 Sodium 142 140 (137-145) mmol/L Potassium 3.4 L 3.1 L (3.5-5.1) mmol/L Chloride 102 105 (98-107) mmol/L Carbon Dioxide 28 23 (22-30) mmol/L BUN 20 21 H (9-20) mg/dL Creatinine 1.12 0.89 (0.66-1.25) mg/dL Glucose 81 89 (74-99) mg/dL Calcium 9.6 8.9 (8.4-10.2) mg/dL AST 42 (17-59) U/L ALT 30 (4-49) U/L Alkaline Phosphatase 80 (38-126) U/L Total Protein 8.0 (6.3-8.2) g/dL Albumin 4.7 (3.5-5.0) g/dL Current Medications Generic Name Dose Route Start Last Admin Trade Name Freq PRN Reason Stop Dose Admin Apixaban 5 mg 07/29/23 09:00 Apixaban 5 Mg Tab PO BID [facility] Protocol Atorvastatin Calcium 40 mg 07/29/23 09:00 Atorvastatin 40 Mg Tab PO DAILY [facility] Furosemide 40 mg 07/29/23 09:00 Furosemide 10 Mg/Ml 4 Ml Vial IV Q12HR [facility] Loperamide HCl 2 mg 07/28/23 23:49 Loperamide 2 Mg Cap PO BID PRN Diarrhea Metoprolol Tartrate 25 mg 07/29/23 09:00 Metoprolol Tartrate 25 Mg Tab PO BID [facility] Pantoprazole Sodium 40 mg 07/29/23 09:00 Pantoprazole 40 Mg/10 Ml Vial IVP BID [facility] Sacubitril/Valsartan 1 each 07/29/23 09:00 Sacubitril/Valsartan 24 Mg-26 Mg Tablet PO BID [facility] Spironolactone 25 mg 07/29/23 09:00 Spironolactone 25 Mg Tab PO DAILY [facility] Intake and Output 07/28/23 07/29/23 07/29/23 22:59 06:59 14:59 Other: Weight 104.326 kg 07/28/23 20:34 07/29/23 07:20
--- NOTE | 2023-07-29 13:53 | P.CONS ---
History of Present Illness - Reason for Consult Consult date: 07/29/23 Epigastric pain, nausea vomiting Requesting physician: Quoc Giang - Chief Complaint Has pain - History of Present Illness Is a pleasant 62-year-old male who presented to the emergency department with complaints of chest pain and shortness of breath. States he has had chest pain for the last 3 days duration. States he feels short of breath. He does have a history of heart failure, atrial fibrillation, COPD and hyperlipidemia. States pain is mostly in the chest and epigastric region. He states he follows in the office with Dr. Ramirez. States for the last few days he has been short of breath and increases with exertion. Difficulty with lying down. Denies any history of peptic ulcer disease. Labs WBC 7.4 hemoglobin 13 platelet count 230,000 INR 1.2 sodium 142 potassium 3.4 BUN 20 creatinine 1.1 total bilirubin 1.5 AST 42 ALT 30 alkaline phosphatase 80 lipase 60 Review of Systems REVIEW OF SYSTEMS: CARDIOPULMONARY: Chest pain, shortness of breath, dyspnea on exertion. Gastrointestinal: Epigastric pain. No nausea or vomiting. No hematemesis, coffee-ground emesis. No rectal bleeding, or melena. GENITOURINARY: No dysuria or hematuria. MUSCULOSKELETAL: Reports normal range of motion., Joint pain. SKIN: No rashes. No jaundice. ENDOCRINE: No chills, fevers. No excessive weight gain or loss. No polydipsia or polyuria. PSYCHIATRIC: Unremarkable. NEUROLOGY: No change in mental status. Denies dizziness, headache. ENT: Vision unremarkable. CONSTITUTIONAL: No recent weight loss. No fever, chills, night sweats. Past Medical History Past Medical History: Atrial Fibrillation, Heart Failure, COPD, Hyperlipidemia Additional Past Medical History / Comment(s): high cholestrol History of Any Multi-Drug Resistant Organisms: None Reported Past Surgical History: Appendectomy, Hernia Repair Past Anesthesia/Blood Transfusion Reactions: No Reported Reaction Past Psychological History: Depression Smoking Status: Never smoker Past Alcohol Use History: None Reported Past Drug Use History: Marijuana - Past Family History Mother Family Medical History: Hyperlipidemia Medications and Allergies Home Medications Medication Instructions Recorded Confirmed Type Loperamide [Imodium] 2 mg PO BID PRN 04/11/23 07/29/23 History Apixaban [Eliquis] 5 mg PO BID #60 tab 04/15/23 07/29/23 Rx Atorvastatin [Lipitor] 40 mg PO DAILY #30 tab 04/15/23 07/29/23 Rx Empagliflozin [Jardiance] 10 mg PO DAILY #30 tab 04/15/23 07/29/23 Rx Pantoprazole [Protonix] 40 mg PO AC-BRKFST #30 tab 04/15/23 07/29/23 Rx Spironolactone [Aldactone] 25 mg PO DAILY #30 tab 04/15/23 07/29/23 Rx Metoprolol Tartrate [Lopressor] 25 mg PO BID 06/11/23 07/29/23 History Sacubitril/Valsartan [Entresto 24 1 tab PO BID 06/11/23 07/29/23 History mg-26 mg Tablet] Albuterol Inhaler [Ventolin Hfa 1 puff INHALATION RT-QID PRN 30 07/22/23 07/29/23 Rx Inhaler] Days #1 inh Allergies Allergy/AdvReac Type Severity Reaction Status Date / Time No Known Allergies Allergy Verified 07/29/23 08:21 Physical Exam Vitals: Vital Signs Temp Pulse Pulse Resp BP Pulse Ox 07/29/23 06:31 98.7 F 79 16 137/107 99 07/29/23 02:01 80 18 112/92 97 07/29/23 00:13 75 18 122/88 97 07/28/23 22:41 79 18 134/100 96 07/28/23 21:23 79 18 125/90 94 L 07/28/23 20:31 78 07/28/23 20:25 79 18 125/98 97 07/28/23 19:27 98.3 F 84 20 141/91 98 Intake and Output 07/28/23 07/29/23 07/29/23 22:59 06:59 14:59 Other: Weight 104.326 kg General appearance: The patient is alert, oriented, appears in no acute distress. HET: Head is normocephalic and atraumatic. Conjunctiva pink. Sclera anicteric. Neck: Supple without lymphadenopathy. Trachea midline. Heart: Regular. Lungs: Equal expansion, normal respiratory effort. Abdomen: Soft, nontender, nondistended with bowel sounds. No guarding or rigidity. Skin: No rashes. No jaundice. Extremities: Normal skin color and turgor. No pedal edema. Neurological: No focal deficits. Alert and oriented x3. Results CBC & Chem 7: 07/28/23 20:34 07/29/23 07:20 Labs: Abnormal Lab Results - Last 24 Hours (Table) 07/28/23 07/28/23 Range/Units 20:34 20:34 PT 12.7 H (10.0-12.5) sec INR 1.2 H (<1.2) Potassium 3.4 L (3.5-5.1) mmol/L Total Bilirubin 1.5 H (0.2-1.3) mg/dL Comments: Gallbladder ultrasound report sob optimal study. No shadowing mobile gallstones or ultrasound evidence for acute cholecystitis. Sob optimal evaluation of pancreas otherwise unremarkable exam. Assessment and Plan (1) Epigastric pain Narrative/Plan: 62-year-old male came in with complaints of chest pain and shortness of breath also pointing to the epigastric area for discomfort. However he states he is very short of breath, chest pain and worse with dyspnea. No history of peptic ulcer disease. He was noted to have mildly elevated total bilirubin at 1.5 with normal of teas. He had a gallbladder ultrasound with no acute findings. Possibly dealing with acid reflux. Will treat with PPI for now allow cardiology to finish up workup. No plans on endoscopic evaluation at this time. Current Visit: Yes Status: Acute Code(s): R10.13 - EPIGASTRIC PAIN SNOMED Code(s): 99119216 (2) Chest pain Current Visit: Yes Status: Acute Code(s): R07.9 - CHEST PAIN, UNSPECIFIED SNOMED Code(s): 58742192 (3) Congestive heart failure Current Visit: Yes Status: Acute Code(s): I50.9 - HEART FAILURE, UNSPECIFIED SNOMED Code(s): 96135949 Plan: 1. Continue symptomatic and supportive care 2. Protonix 40 mg twice daily 3. Continue with cardiology workup and recommendations 4. Antiemetics as needed 5. No plans on endoscopic evaluation Thank you for this consultation. There will be no gastroenterology available over the weekend we will resume services on 08/01/[address] Phuc Franco I agree with the dictator's note, documented as a scribe by Marguerite Coello.
--- NOTE | 2023-07-29 14:43 | P.PN ---
Subjective Progress Note Date: 07/29/23 62-year-old male with a PMH of systolic CHF EF 25 to 30%, A-fib on Eliquis, hypertension, and hyperlipidemia who presents to the emergency room with complaints of epigastric discomfort and shortness of breath. Patient notes the above symptoms have been gradually worsening over the past 2 days. Reports c onstant epigastric discomfort, gnawing in nature, 7 out of 10 at maximal intensity, with no alleviating or exacerbating features and nonradiating. Reports significant orthopnea during this time without lower extremity edema. Also reports experiencing persistent nausea with vomiting and diarrhea without bloody or black tarry stools over the past 1 to 2 days. Patient denies using NSAIDs. Chest x-ray in the emergency room revealed findings of fluid overload with EKG showing A-fib with a left bundle branch block at 86 bpm. Gallbladder ultrasound was also unremarkable. Laboratory evaluation was remarkable for troponin less than 0.012, proBNP 7450, and lipase 60 with total bilirubin 1.5. 07/28 Patient reports improvement in his lower extremity swelling and breathing. Complains of chest pain, epigastric radiating to the left arm. BMP K 3.1, BUN 21. Troponin < 0.012 x 3. Cardiology recommends one more day of diuresis and outpatient follow up for AICD. General: non toxic, no distress, appears at stated age Derm: warm, dry Head: atraumatic, normocephalic, symmetric Eyes: EOMI, no lid lag, anicteric sclera Mouth: no lip lesion, mucus membranes moist Cardiovascular: Good distal perfusion in all 4 extremities, Normal S1 S2. No murmurs. Lungs: Breathing comfortably, no accessory muscle use, CTA bilaterally Ext: no gross muscle atrophy, 1+ edema, no contractures Neuro: no focal neuro deficits Psych: Alert, oriented, appropriate affect Based on my assessment of this patient, this patient meets a high complexity level of care. Patient has a history of systolic CHF with severe exacerbation or progression of disease which poses a threat to life or bodily function. Acute on chronic systolic CHF exacerbation: Lasix 40 mg IV BID. Strict intake and outtake. Daily weights. Telmetry monitoring. Cardiology consult. Chest pain: ACS ruled out. May benefit from stress test in the outpatient setting. Cardiology to determine. Hypokalemia: KCl 40 meq PO x 1 today. Epigastric discomfort, concerning for PUD: GI recommends no endoscopic evaluation. Chronic conditions: A-fib, hypertension, hyperlipidemia CODE STATUS: FULL CODE DVT Prophylaxis: Eliquis. GI Prophylaxis: Designated medical POA if patient is not able to make medical decisions for themselves: I have reviewed the following intelligence consultant notes: Cardiology, GI note. I have reviewed the results of the following tests: BMP, Troponin. I have ordered the following tests: BMP to evaluate electrolytes and renal function due to patient being on Lasix IV. I have discussed the care of this patient with the following independent historian: I have independently interpreted the following test below: I have discussed the management of this patient with the following physician: Objective - Vital Signs Vital signs: Vital Signs Temp 98.7 F 07/29/23 06:31 Pulse 81 07/29/23 11:00 Resp 17 07/29/23 11:00 BP 105/91 07/29/23 11:00 Pulse Ox 97 07/29/23 11:00 FiO2 Intake & Output 07/28/23 07/29/23 07/29/23 18:59 06:59 18:59 Intake Total 475 Output Total 400 Balance 75 Weight 104.326 kg Intake: Oral 475 Output: Urine 400 - Labs CBC & Chem 7: 07/28/23 20:34 07/29/23 07:20 Labs: Abnormal Lab Results - Last 24 Hours (Table) 07/28/23 07/28/23 07/29/23 Range/Units 20:34 20:34 07:20 PT 12.7 H (10.0-12.5) sec INR 1.2 H (<1.2) Potassium 3.4 L 3.1 L (3.5-5.1) mmol/L BUN 21 H (9-20) mg/dL Total Bilirubin 1.5 H (0.2-1.3) mg/dL
[2023-07-29] MEDS: HYDROcodone/APAP 5-325MG 1 EACH TAB PO PRN (15:32)
[2023-07-30 10:02] LABS: BUN/Creat Ratio 20.18 Ratio (12.00-20.00); Blood Urea Nitrogen 22.2 mg/dL (9.0-27.0); Chloride 104 mmol/L (96-109); Glucose 100 mg/dL (70-110); Potassium 3.5 mmol/L (3.5-5.5); Sodium 143 mmol/L (135-145)
[2023-07-30 10:03] LABS: Calcium 9.3 mg/dL (8.7-10.3); Carbon Dioxide 28.9 mmol/L (21.6-31.8)
--- NOTE | 2023-07-30 10:31 | P.DS ---
Providers Date of admission: 07/28/23 23:48 Expected date of discharge: 07/30/23 Attending physician: Quoc Giang MD Consults: 07/29/23 01:05 Consult Physician Urgent Consulting Provider: Nitin Kang Consult Reason/Comments: CHF Do you want consulting provider notified?: Yes 07/29/23 01:06 Consult Physician Urgent Consulting Provider: Bess Franco Consult Reason/Comments: Epigastric discomfort, nausea, vomiting, diarrhea Do you want consulting provider notified?: Yes Primary care physician: Stated None Hospital Course: 62-year-old male with a PMH of systolic CHF EF 25 to 30%, A-fib on Eliquis, hypertension, and hyperlipidemia who presents to the emergency room with complaints of epigastric discomfort and shortness of breath. Patient notes the above symptoms have been gradually worsening over the past 2 days. Reports constant epigastric discomfort, gnawing in nature, 7 out of 10 at maximal intensity, with no alleviating or exacerbating features and nonradiating. Reports significant orthopnea during this time without lower extremity edema. Also reports experiencing persistent nausea with vomiting and diarrhea without bloody or black tarry stools over the past 1 to 2 days. Patient denies using NSAIDs. Chest x-ray in the emergency room revealed findings of fluid overload with EKG showing A-fib with a left bundle branch block at 86 bpm. Gallbladder ultrasound was also unremarkable. Laboratory evaluation was remarkable for troponin less than 0.012, proBNP 7450, and lipase 60 with total bilirubin 1.5. 07/28 Patient reports improvement in his lower extremity swelling and breathing. Complains of chest pain, epigastric radiating to the left arm. BMP K 3.1, BUN 21. Troponin < 0.012 x 3. Cardiology recommends one more day of diuresis and outpatient follow up for AICD. 07/29 Patient was seen and examined. No more chest pain. Breathing improved. Swelling improved. BMP BUN/Cr 20/18. He reports homelessness. Currently on Lasix 40 mg IV BID. Plans for discharge today if transitioned to PO Lasix and cleared by Cardiology. General: non toxic, no distress, appears at stated age Derm: warm, dry Head: atraumatic, normocephalic, symmetric Eyes: EOMI, no lid lag, anicteric sclera Mouth: no lip lesion, mucus membranes moist Cardiovascular: Good distal perfusion in all 4 extremities, Irregular S1 S2. No murmurs. Lungs: Breathing comfortably, no accessory muscle use, CTA bilaterally Ext: no gross muscle atrophy, no edema, no contractures Neuro: no focal neuro deficits Psych: Alert, oriented, appropriate affect Discharge Diagnosis: Acute on chronic systolic CHF exacerbation Chest pain Hypokalemia Epigastric discomfort, concerning for PUD Chronic conditions: A-fib, hypertension, hyperlipidemia This complex discharge took 35 minutes to complete. Patient Condition at Discharge: Stable Plan - Discharge Summary Discharge Rx Participant: No New Discharge Prescriptions: New RX: Dapagliflozin Propanediol [Farxiga] 10 mg PO DAILY #30 tab RX: HYDROcodone/APAP 5-325MG [[place] 5-325] 1 each PO Q4HR PRN #18 tab PRN Reason: Pain Continue RX: Pantoprazole [Protonix] 40 mg PO AC-BRKFST #30 tab RX: Atorvastatin [Lipitor] 40 mg PO DAILY #30 tab RX: Metoprolol Tartrate [Lopressor] 25 mg PO BID RX: Sacubitril/Valsartan [Entresto 24 mg-26 mg Tablet] 1 tab PO BID RX: Loperamide [Imodium] 2 mg PO BID PRN PRN Reason: Diarrhea RX: Apixaban [Eliquis] 5 mg PO BID #60 tab RX: Spironolactone [Aldactone] 25 mg PO DAILY #30 tab RX: Albuterol Inhaler [Ventolin Hfa Inhaler] 1 puff INHALATION RT-QID PRN 30 Days #1 inh PRN Reason: Shortness Of Breath Or Wheezing Discontinued RX: Empagliflozin [Jardiance] 10 mg PO DAILY #30 tab Discharge Medication List RX: Loperamide [Imodium] 2 mg PO BID PRN 04/11/23 [History] RX: Apixaban [Eliquis] 5 mg PO BID #60 tab 04/15/23 [Rx] RX: Atorvastatin [Lipitor] 40 mg PO DAILY #30 tab 04/15/23 [Rx] RX: Pantoprazole [Protonix] 40 mg PO AC-BRKFST #30 tab 04/15/23 [Rx] RX: Spironolactone [Aldactone] 25 mg PO DAILY #30 tab 04/15/23 [Rx] RX: Metoprolol Tartrate [Lopressor] 25 mg PO BID 06/11/23 [History] RX: Sacubitril/Valsartan [Entresto 24 mg-26 mg Tablet] 1 tab PO BID 06/11/23 [History] RX: Albuterol Inhaler [Ventolin Hfa Inhaler] 1 puff INHALATION RT-QID PRN 30 Days #1 inh 07/22/23 [Rx] RX: Dapagliflozin Propanediol [Farxiga] 10 mg PO DAILY #30 tab 07/30/23 [Rx] RX: HYDROcodone/APAP 5-325MG [[place] 5-325] 1 each PO Q4HR PRN #18 tab 07/30/23 [Rx] Follow up Appointment(s)/Referral(s): Magdy Ramirez MD [Medical Doctor] - 1 Week None,Stated [Primary Care Provider] - 1-2 days
[2023-07-30 10:58] VITALS: BMI 28.7
--- NOTE | 2023-07-30 13:19 | P.PN ---
Subjective Progress Note Date: 07/30/23 This is a 62-year-old male with a past medical history significant for atrial fibrillation, nonobstructive CAD, nonischemic cardiomyopathy, congestive heart failure, hyperlipidemia, and former nicotine dependence. Patient follows in the office with Dr. Ramirez. We have been asked to see the patient in consultation for congestive heart failure. Patient examined at the bedside in the emergency room. Patient presented to the hospital with a chief complaint of shortness of breath. He states he has been feeling short of breath for the past few days. He states he is short of breath with exertion and also at rest. He states he is unable to lay flat due to dyspnea. He also reports having some chest pain in the middle of his chest that radiates into his left arm. He has not prescribed any diuretics on an outpatient basis besides Aldactone. He states he has been compliant with all of his medications. He reports following a low-sodium diet. He states that he is supposed to follow-up in the office with Dr. Ramirez and there has been some discussion with having an AICD implantation performed although this has not been scheduled. DIAGNOSTICS: - EKG reveals atrial fibrillation with controlled ventricular rate. Left bundle branch block.. - Chest xray cardiomegaly without acute pulmonary process. - Laboratory data: WBC 7.4. Hemoglobin 13.2. Platelet count 230. Sodium 140. Potassium 3.1. BUN 21. Creatinine 0.89. Magnesium 2.0. proBNP 7450. Troponin negative x 2 - Most recent echocardiogram obtained in March 2023 reveals EF 25 to 30%, mild pulmonary hypertension, severe right atrial dilation, severe left atrial dilation, trace MR, mild TR, mild AR. - Cardiac catheterization history: May 2022 revealing mid RCA 60% with nonischemic FFR. 07/30/2023 The patient was seen and examined resting comfortably sitting up in bed. He denies any further complaints of edema. He continues to complain of shortness of breath with activity as well as orthopnea. Denies any further complaints of chest discomfort. He has had no palpitations, dizziness or lightheadedness. He is currently on Eliquis 5 mg p.o. twice daily, Lipitor 40 mg p.o. daily, Farxiga 10 mg p.o. daily, Lasix 40 mg IV push every 12 hours, [place] 5-325 mg as needed for pain, Lopressor 25 mg p.o. twice daily, Entresto 24-26 mg p.o. twice daily and Aldactone 25 mg p.o. daily. His vital signs have been stable and he has been afebrile. Objective - Vital Signs Vital signs: Vital Signs Temp 97.7 F 07/30/23 07:00 Pulse 75 07/30/23 07:00 Resp 16 07/30/23 07:00 BP 122/84 07/30/23 07:00 Pulse Ox 98 07/30/23 07:00 FiO2 Intake & Output 07/29/23 07/30/23 07/30/23 18:59 06:59 18:59 Intake Total 715 Output Total 520 1700 750 Balance 195 -1700 -750 Weight 104.326 kg 104.3 kg Intake: Oral 715 Output: Urine 520 1700 750 Other: Voiding Method Toilet Toilet Urinal # Voids 1 - Exam VITAL SIGNS: Reviewed. GENERAL: Well-developed in no acute distress. HEENT: Head is normocephalic. Pupils are equal, round. Sclerae anicteric. Mucous membranes of the mouth are moist. Neck supple. Positive JVD LUNGS: Respirations even and unlabored. Lungs diminished with no crackles, rhonchi or wheezes HEART: Irregular rate and rhythm. S1 and S2 heard. ABDOMEN: Soft. Nondistended. Nontender. EXTREMITIES: Normal range of motion. No clubbing or cyanosis. Peripheral pulses intact. No edema noted NEUROLOGIC: Awake and alert. Oriented x 3. - Labs CBC & Chem 7: 07/28/23 20:34 07/30/23 05:55 Assessment and Plan Assessment: Shortness of breath Acute on chronic heart failure with reduced EF Persistent atrial fibrillation Nonobstructive coronary artery disease with 60% mid RCA lesion Nonischemic cardiomyopathy, EF 25 to 30% Hyperlipidemia COPD Former nicotine dependence History of pleural effusion requiring thoracentesis Plan: From cardiology's perspective we will increase Entresto. Continue IV Lasix for another 24 hours. Continue to monitor daily weights, accurate intake and output as well as renal function and electrolytes. Further recommendations pending patient course. BIOLOGICAL PHOTOGRAPHER note has been reviewed, I agree with a documented findings and plan of care. Patient was seen and examined.
[2023-07-30] MEDS: FUROSEMIDE 40 MG TAB PO SCH (13:41)
[2023-07-30] MEDS: FUROSEMIDE 10 MG/ML 4 ML VIAL IV SCH (20:45)
[2023-07-30] MEDS: SACUBITRIL/VALSARTAN 49 MG-51 MG TABLET PO SCH (21:58)
[2023-07-31] MEDS: PANTOPRAZOLE 40 MG TABLET PO SCH (06:39)
[2023-07-31 08:23] VITALS: BP 141/88; PULSE 84; RESP 18; TEMP 97.8
[2023-07-31 10:54] LABS: BUN/Creat Ratio 19.09 Ratio (12.00-20.00); Calcium 9.3 mg/dL (8.7-10.3); Carbon Dioxide 28.6 mmol/L (21.6-31.8); Chloride 103 mmol/L (96-109); Glucose 104 mg/dL (70-110); Potassium 3.7 mmol/L (3.5-5.5); Sodium 143 mmol/L (135-145)
--- NOTE | 2023-07-31 12:51 | P.PN ---
Subjective Progress Note Date: 07/31/23 This is a 62-year-old male with a past medical history significant for atrial fibrillation, nonobstructive CAD, nonischemic cardiomyopathy, congestive heart failure, hyperlipidemia, and former nicotine dependence. Patient follows in the office with Dr. Ramirez. We have been asked to see the patient in consultation for congestive heart failure. Patient examined at the bedside in the emergency room. Patient presented to the hospital with a chief complaint of shortness of breath. He states he has been feeling short of breath for the past few days. He states he is short of breath with exertion and also at rest. He states he is unable to lay flat due to dyspnea. He also reports having some chest pain in the middle of his chest that radiates into his left arm. He has not prescribed any diuretics on an outpatient basis besides Aldactone. He states he has been compliant with all of his medications. He reports following a low-sodium diet. He states that he is supposed to follow-up in the office with Dr. Ramirez and there has been some discussion with having an AICD implantation performed although this has not been scheduled. DIAGNOSTICS: - EKG reveals atrial fibrillation with controlled ventricular rate. Left bundle branch block.. - Chest xray cardiomegaly without acute pulmonary process. - Laboratory data: WBC 7.4. Hemoglobin 13.2. Platelet count 230. Sodium 140. Potassium 3.1. BUN 21. Creatinine 0.89. Magnesium 2.0. proBNP 7450. Troponin negative x 2 - Most recent echocardiogram obtained in March 2023 reveals EF 25 to 30%, mild pulmonary hypertension, severe right atrial dilation, severe left atrial dilation, trace MR, mild TR, mild AR. - Cardiac catheterization history: May 2022 revealing mid RCA 60% with nonischemic FFR. 07/30/2023 The patient was seen and examined resting comfortably sitting up in bed. He denies any further complaints of edema. He continues to complain of shortness of breath with activity as well as orthopnea. Denies any further complaints of chest discomfort. He has had no palpitations, dizziness or lightheadedness. He is currently on Eliquis 5 mg p.o. twice daily, Lipitor 40 mg p.o. daily, Farxiga 10 mg p.o. daily, Lasix 40 mg IV push every 12 hours, [place] 5-325 mg as needed for pain, Lopressor 25 mg p.o. twice daily, Entresto 24-26 mg p.o. twice daily and Aldactone 25 mg p.o. daily. His vital signs have been stable and he has been afebrile. 07/31/2023 The patient was seen and examined resting comfortably in bed. Overall he is feeling better. Renal function is stable. Entresto was increased yesterday and he is tolerating this well. Objective - Vital Signs Vital signs: Vital Signs Temp 97.8 F 07/31/23 07:10 Pulse 84 07/31/23 07:10 Resp 18 07/31/23 07:10 BP 141/88 07/31/23 07:10 Pulse Ox 99 07/31/23 07:10 FiO2 Intake & Output 07/30/23 07/31/23 07/31/23 18:59 06:59 18:59 Intake Total 480 944 Output Total 1850 2300 1000 Balance -1370 -2300 -56 Weight 104.3 kg 103.5 kg Intake: Oral 480 944 Output: Urine 1850 2300 1000 - Exam VITAL SIGNS: Reviewed. GENERAL: Well-developed in no acute distress. HEENT: Head is normocephalic. Pupils are equal, round. Sclerae anicteric. Mucous membranes of the mouth are moist. Neck supple. Positive JVD LUNGS: Respirations even and unlabored. Lungs diminished with no crackles, rhonchi or wheezes HEART: Irregular rate and rhythm. S1 and S2 heard. ABDOMEN: Soft. Nondistended. Nontender. EXTREMITIES: Normal range of motion. No clubbing or cyanosis. Peripheral pulses intact. No edema noted NEUROLOGIC: Awake and alert. Oriented x 3. - Labs CBC & Chem 7: 07/28/23 20:34 07/31/23 04:45 Assessment and Plan Assessment: Shortness of breath Acute on chronic heart failure with reduced EF Persistent atrial fibrillation Nonobstructive coronary artery disease with 60% mid RCA lesion Nonischemic cardiomyopathy, EF 25 to 30% Hyperlipidemia COPD Former nicotine dependence History of pleural effusion requiring thoracentesis Plan: From cardiology's perspective medications were reviewed and we will continue the same. The patient may be discharged home. He will follow-up with Dr. Ramirez in the office. TECHNICIAN SEMICONDUCTOR DEVELOPMENT note has been reviewed, I agree with a documented findings and plan of care. Patient was seen and examined.
[2023-08-01] MEDS ORDERED: FUROSEMIDE 40 MG TAB PO SCH (09:00)
== END 2023-07-31 14:50 | disposition home or self-care (01) ==
LOC: EC 19:14 → 6NMEDSUR 23:48
PROVIDERS: ADMIT Internal Medicine; ATTEND Internal Medicine
DX: I11.0 Hypertensive heart disease with heart failure (principal); I50.23 Acute on chronic systolic (congestive) heart failure; R07.9 Chest pain, unspecified; R10.13 Epigastric pain; E87.6 Hypokalemia; I48.19 Other persistent atrial fibrillation; E78.5 Hyperlipidemia, unspecified; J44.9 Chronic obstructive pulmonary disease, unspecified; F32.A Depression, unspecified; I42.8 Other cardiomyopathies; I25.10 Atherosclerotic heart disease of native coronary artery without angina pectoris; Z87.891 Personal history of nicotine dependence; Z79.01 Long term (current) use of anticoagulants; Z79.84 Long term (current) use of oral hypoglycemic drugs; Z79.899 Other long term (current) drug therapy
CPT/HCPCS: 96376 ×3; 96374; 96375; 99285; 36415; 93005; 83880; 80053; 80048 ×3; 83690; 83735 ×2; 84484 ×2; 85025; 85610; 85730; 71046; 76705; G0378 ×4; J1940 ×3; C9113 ×2